=== PATIENT | male | born 1950 | race Caucasian/White ===

== ENCOUNTER 2021-05-11 23:00 | Emergency (ER) | payer MEDICARE, SELFPAY ==
--- NOTE | ~2021-05-11 | CT_ITS ---
EXAMINATION: CT ABDOMEN AND PELVIS WITH CONTRAST CLINICAL INFORMATION: Lower abdominal pain and tenderness. Evaluate for appendicitis or diverticulitis. COMPARISON: None TECHNIQUE: Multidetector volumetric images were obtained from the superior aspect of the liver through the pubic symphysis following administration 85 mL of Omnipaque 350 intravenous contrast. Sagittal and coronal reformatted images were obtained on the technologist's workstation. Oral contrast: No This CT examination was performed using dose optimization techniques as appropriate, variously including the following: *Automated exposure control *Adjustment of mA and/or kV according to patient size (this includes techniques or standardized protocols for targeted exams where dose is matched to indication/reason for exam; i.e. extremities or head) *Use of iterative reconstruction technique DLP: 735 mGy-cm FINDINGS: LUNG BASES: The visualized lung bases are unremarkable. LIVER, GALLBLADDER, AND BILIARY TREE: The liver is normal in size, shape, and attenuation. No focal hepatic lesion or biliary ductal dilatation is present. Gallbladder unremarkable. PANCREAS: Unremarkable. SPLEEN: Unremarkable. ADRENAL GLANDS: Unremarkable. KIDNEYS AND URETERS: The kidneys are normal in size, shape, and attenuation. There is a 4 mm nonobstructing calculus in the midpole of the LEFT kidney and a punctate calculus in the lower pole right kidney. Bilateral simple renal cysts require no further follow-up. No hydronephrosis or perinephric abnormality. BLADDER: Unremarkable. GASTROINTESTINAL TRACT: Left colonic diverticulosis most concentrated within the sigmoid colon. There is segmental edematous wall thickening of the sigmoid colon, associated pericolic fat stranding centered around a a few inflamed diverticula within the mid sigmoid colon compatible with diverticulitis. Trace free fluid within right lower quadrant and left pelvis is reactive. No evidence of abscess formation. No intraperitoneal free air to suggest asad perforation. No evidence of obstruction. The appendix is normal. ABDOMINAL WALL: No significant hernia is appreciated. LYMPH NODES: Normal. VASCULAR: Aorta is atherosclerotic but normal caliber. Patent venous structures. PELVIC VISCERA: Unremarkable. OSSEOUS STRUCTURES: No acute or suspicious osseous abnormalities. Degenerative changes present throughout the imaged thoracic and lumbar spine. CT/CT abdomen pelvis w con IMPRESSION: Acute uncomplicated sigmoid diverticulitis. Appendix is normal. Bilateral nonobstructive intrarenal calculi as described.
[2021-05-11 23:05] VITALS: BP 126/78; PULSE 105; RESP 18; TEMP 37.1; O2SAT 97; BMI 35.8
[2021-05-11 23:21] VITALS: BP 126/78; BP 130/90; PULSE 108; PULSE 86; RESP 17; O2SAT 96; O2SAT 97
--- NOTE | 2021-05-11 23:25 | PC.NURSE ---
Red socks, Red wrist band applied to pt. Red star posted outside of pt's room. Stretcher low locked, rails raised, call paz and personal belongings within reach.
--- NOTE | 2021-05-11 23:42 | ECG_ITS ---
Test Reason : ABD PAIN Blood Pressure : / mmHG Vent. Rate : 106 BPM Atrial Rate : 106 BPM P-R Int : 200 ms QRS Dur : 140 ms QT Int : 354 ms P-R-T Axes : 000 -45 109 degrees QTc Int : 470 ms Sinus tachycardia Left axis deviation Left bundle branch block Abnormal ECG No previous ECGs available Referred By: Gurwinder Pineda Electronically Signed By:LUPE CARDENAS
--- NOTE | 2021-05-11 23:44 | ED.ABDPAIN ---
HPI - Abdominal Pain General Chief Complaint: Abdominal Pain Stated Complaint: LOWER ABDOMINAL PAIN Time Seen by Provider: 05/11/21 23:27 Source: patient Mode of arrival: EMS Limitations: no limitations History of Present Illness HPI narrative: 70-year-old male who presents emergency department for evaluation of abdominal pain. Patient states he has been having abdominal pain on off for approximately 3 weeks. States the pain is constant but waxes and wanes in intensity. The pain is worse in the morning and gets better in the afternoon. He states that over the past 2 days the pain has been constant, sharp and 9/10 at its worst. The pain is located in his lower abdomen, he states that it is more prominent in the right lower quadrant of his abdomen. He states that he had nausea but no vomiting. States he has had intermittent constipation. The patient does have a history of bladder cancer he states that he has urinary frequency and dysuria chronically because of his bladder cancer. He states that he was evaluated 2 months for bladder cancer any was told that it had resolved. The patient states that his blood sugar was 300 but he does not have diabetes. Related Data Previous Rx's Medication Instructions Recorded levofloxacin 750 mg tablet 750 mg PO DAILY 10 Days #10 tab 05/12/21 metronidazole 500 mg tablet 500 mg PO BID 10 Days #20 tab 05/12/21 (Flagyl) morphine 15 mg immediate release 15 mg PO Q4-6H PRN #10 tab 05/12/21 tablet ondansetron 4 mg disintegrating 4 mg PO Q6-8H PRN #14 tab 05/12/21 tablet Allergies Allergy/AdvReac Type Severity Reaction Status Date / Time Penicillins [PCN] Allergy Rash Verified 05/11/21 23:10 Seasonal Allergies Allergy Unknown Verified 05/11/21 23:10 Review of Systems Review of Systems Yes all other systems are reviewed and are negative Physical Exam Vital Signs: Vital Signs: Last Vital Signs Temp 99.2 F 05/12/21 00:35 Pulse 108 H 05/12/21 00:35 Resp 15 05/12/21 00:35 BP 137/83 05/12/21 00:35 Pulse Ox 97 05/12/21 00:35 Body Mass Index 35.8 Const: General: cooperative, no acute distress, alert and awake Orientation/consciousness: oriented to person and oriented to place Limitations: no limitations HENMT: Head: Yes normal to inspection, Yes normocephalic and Yes atraumatic Ears: external ears normal General nose exam: Normal external nose present Face and sinus: Yes normal facial exam Mouth: Normal oral and palatal mucosa present Eyes: General: appearance normal, both eyes and all related structures Periorbital: periorbital findings normal Eyelids: Yes eyelids normal Conjunctivae: conjunctivae normal Sclerae: sclerae normal Corneas: corneas normal Pupils: Equal, round and reactive pupils present Direct Ophthalmoscopy: normal light reflex Neck: Neck: Yes normal visual inspection and Yes supple Lymphatic: no lymphadenopathy noted Chest: Chest palpation & inspection: normal inspection of the chest and normal palpation of entire chest wall Resp: Effort & Inspection: normal respiratory effort, no audible wheezes and no respiratory distress Auscultation: clear to auscultation bilaterally, no crackles, no rales, no rhonchi and no wheezes Cardio: Rate: regular rate Rhythm: regular rhythm Heart sounds: S1 normal heart sound present, S2 normal heart sound present and no murmurs GI: Inspection: Yes distended Palpation (GI): Soft to palpation, Tenderness to palpation present (GI) in the LLQ ([id number]), in the RLQ (Moderate) and suprapubicly (Moderate), no guarding and No hepatosplenomegaly present Auscultation: normal bowel sounds : General: Yes no CVA tenderness Back/Spine/Pelvis: Back: no CVA tenderness Skin: General skin exam: no rashes or lesions noted Lesions: no lesions Rashes: no rashes Wounds: no wounds Neuro: General: oriented to person and oriented to place Cranial nerves: Yes CN's II-XII intact bilaterally and Yes Equal, round and reactive pupils present Cognition (Neuro): normal cognition Motor exam (neuro): 5/5 motor strength present throughout Extrem: General: Yes normal to inspection, Yes full ROM, Yes no pedal edema and Yes no calf tenderness Psych: Appearance: grossly normal Mental Status: mental status grossly normal Speech and movement: Clear speech present Affect: normal affect Thought process: Normal thought process present Course Course Course Narrative: 70-year-old male who presents emergency department for evaluation of abdominal pain x3 weeks, worse the past 2 days, nausea without vomiting. The patient's physical examination revealed that he was tachycardic with a pulse of 105 otherwise his vital signs were normal. Patient's abdominal exam did lower abdominal tenderness greater in the right quadrant. I ordered a laboratory evaluation to include CBC, CMP, lipase, lactate, COVID-19 test, urinalysis. CT of the abdomen pelvis with IV contrast will be obtained as well. Patient's abdominal pain was treated with morphine 4 mg IV , his nausea was treated with Zofran 4 mg IV. Was also ordered to get normal saline IV x1 L. 0233: Laboratory [place] [address] bicarb of 21 the, elevated glucose of 301, elevated total bilirubin 2.5. Urinalysis was positive for glucose otherwise unremarkable. Lactic acid was 1.8. CT scan of the abdomen pelvis with IV contrast is consistent with acute, uncomplicated sigmoid diverticulitis, normal appendix. The patient is feeling better after receiving the above medications. The patient the has improvement of his abdominal tenderness and would like to be treated as an outpatient. Patient was given Levaquin 750 mg orally and Flagyl 500 mg orally. Patient was given a prescription for Levaquin 750 mg once a day for 10 days and Flagyl 500 mg 3 times a day for 10 days. He is advised to take Tylenol for pain and given a prescription for morphine for pain not relieved by Tylenol. It is also given a prescription for Zofran ODT for nausea and vomiting. The patient was given verbal and printed instructions prior to discharge. The patient was advised to follow-up with his PCP in 2 days and to return to the emergency department if his symptoms get worse or if he develops any new symptoms that are concerning to him. MDM - Abdominal Pain Lab Data Result diagrams: 05/12/21 00:13 05/12/21 00:13 Labs: Lab Results 05/12/21 05/12/21 05/12/21 Range/Units 00:13 00:13 00:13 WBC 16.9 H (4.8-10.8) X10*3/uL RBC 5.46 (4.60-5.80) X10*6/uL Hgb 17.1 (14.0-18.0) g/dl Hct 49.4 (42-52) % MCV 90.5 (80-98) fL MCH 31.3 (27.0-33.0) pg MCHC 34.6 (31.0-36.0) g/dl RDW 12.7 (11.0-16.0) % Plt Count 238 (160-400) X10*3/uL MPV 10.2 (9.4-12.4) fL Immature Gran % (Auto) 0.5 H (0.0-0.4) % Neut % (Auto) 87.2 H (45-73) % Lymph % (Auto) 7.4 L (20-40) % [place] % (Auto) 4.6 (2-11) % Eos % (Auto) 0.1 (0-4) % Baso % (Auto) 0.2 (0-2) % Lymph # (Auto) 1.3 (1.2-4.9) X10*3/uL [place] # (Auto) 0.8 (0.1-1.2) X10*3/uL Eos # (Auto) 0.0 (0.0-0.4) X10*3/uL Baso # (Auto) 0.0 (0.0-0.2) X10*3/uL Abs Immat Gran (auto) 0.08 H (0.00-0.03) X10*3/uL Absolute Neuts (auto) 14.8 H (2.0-8.3) X10*3/uL Absolute Nucleated RBC 0.000 (0.0-0.012) X10*3/uL Nucleated RBC % (auto) 0.0 (0.0-0.2) /100WBC PT 11.4 (9.9-13.0) SEC INR 1.0 (0.9-1.1) APTT 28.2 (24.1-38.0) SEC Sodium 138 (135-145) mmol/L Potassium 4.4 (3.3-5.1) mmol/L Chloride 104 (96-108) mmol/L Carbon Dioxide 21 L (22-29) mmol/L Anion Gap 17 (12-20) BUN 14 (9-16) mg/dL Creatinine 1.04 (0.5-1.4) mg/dL Estim Creat Clear Calc 72.3 Estimated GFR > 60 Random Glucose 301 H (60-115) mg/dL Lactic Acid (0.5-2.0) mmol/L Calcium 10.8 H (8.4-10.2) mg/dL Total Bilirubin 2.5 H (0.0-1.0) mg/dL AST 27 (5-37) U/L ALT 30 (0-40) U/L Alkaline Phosphatase 98 (39-117) U/L Troponin I High Sens (<3.5-35.0) ng/L Total Protein 7.2 (6.5-8.0) g/dL Albumin 4.0 (3.5-5.0) g/dL Lipase 11 (8-78) U/L Urine Color Urine Appearance Urine pH (5.0-8.0) Ur Specific [place] (1.005-1.025) Urine Protein (NEG-TRACE) MG/DL Urine Glucose (UA) (NEG) MG/DL Urine Ketones (NEG) MG/DL Urine Blood (NEG) Urine Nitrite (NEG) Ur Leukocyte Esterase (NEG) Ethyl Alcohol mg/dL COVID-19 (DARLENE) (Negative) COVID-19 Clin Com 05/12/21 05/12/21 05/12/21 Range/Units 00:13 00:13 00:13 WBC (4.8-10.8) X10*3/uL RBC (4.60-5.80) X10*6/uL Hgb (14.0-18.0) g/dl Hct (42-52) % MCV (80-98) fL MCH (27.0-33.0) pg MCHC (31.0-36.0) g/dl RDW (11.0-16.0) % Plt Count (160-400) X10*3/uL MPV (9.4-12.4) fL Immature Gran % (Auto) (0.0-0.4) % Neut % (Auto) (45-73) % Lymph % (Auto) (20-40) % [place] % (Auto) (2-11) % Eos % (Auto) (0-4) % Baso % (Auto) (0-2) % Lymph # (Auto) (1.2-4.9) X10*3/uL [place] # (Auto) (0.1-1.2) X10*3/uL Eos # (Auto) (0.0-0.4) X10*3/uL Baso # (Auto) (0.0-0.2) X10*3/uL Abs Immat Gran (auto) (0.00-0.03) X10*3/uL Absolute Neuts (auto) (2.0-8.3) X10*3/uL Absolute Nucleated RBC (0.0-0.012) X10*3/uL Nucleated RBC % (auto) (0.0-0.2) /100WBC PT (9.9-13.0) SEC INR (0.9-1.1) APTT (24.1-38.0) SEC Sodium (135-145) mmol/L Potassium (3.3-5.1) mmol/L Chloride (96-108) mmol/L Carbon Dioxide (22-29) mmol/L Anion Gap (12-20) BUN (9-16) mg/dL Creatinine (0.5-1.4) mg/dL Estim Creat Clear Calc Estimated GFR Random Glucose (60-115) mg/dL Lactic Acid 1.8 (0.5-2.0) mmol/L Calcium (8.4-10.2) mg/dL Total Bilirubin (0.0-1.0) mg/dL AST (5-37) U/L ALT (0-40) U/L Alkaline Phosphatase (39-117) U/L Troponin I High Sens 6.8 (<3.5-35.0) ng/L Total Protein (6.5-8.0) g/dL Albumin (3.5-5.0) g/dL Lipase (8-78) U/L Urine Color Urine Appearance Urine pH (5.0-8.0) Ur Specific [place] (1.005-1.025) Urine Protein (NEG-TRACE) MG/DL Urine Glucose (UA) (NEG) MG/DL Urine Ketones (NEG) MG/DL Urine Blood (NEG) Urine Nitrite (NEG) Ur Leukocyte Esterase (NEG) Ethyl Alcohol mg/dL COVID-19 (DARLENE) Negative (Negative) COVID-19 Clin Com See Note 05/12/21 05/12/21 Range/Units 00:13 00:33 WBC (4.8-10.8) X10*3/uL RBC (4.60-5.80) X10*6/uL Hgb (14.0-18.0) g/dl Hct (42-52) % MCV (80-98) fL MCH (27.0-33.0) pg MCHC (31.0-36.0) g/dl RDW (11.0-16.0) % Plt Count (160-400) X10*3/uL MPV (9.4-12.4) fL Immature Gran % (Auto) (0.0-0.4) % Neut % (Auto) (45-73) % Lymph % (Auto) (20-40) % [place] % (Auto) (2-11) % Eos % (Auto) (0-4) % Baso % (Auto) (0-2) % Lymph # (Auto) (1.2-4.9) X10*3/uL [place] # (Auto) (0.1-1.2) X10*3/uL Eos # (Auto) (0.0-0.4) X10*3/uL Baso # (Auto) (0.0-0.2) X10*3/uL Abs Immat Gran (auto) (0.00-0.03) X10*3/uL Absolute Neuts (auto) (2.0-8.3) X10*3/uL Absolute Nucleated RBC (0.0-0.012) X10*3/uL Nucleated RBC % (auto) (0.0-0.2) /100WBC PT (9.9-13.0) SEC INR (0.9-1.1) APTT (24.1-38.0) SEC Sodium (135-145) mmol/L Potassium (3.3-5.1) mmol/L Chloride (96-108) mmol/L Carbon Dioxide (22-29) mmol/L Anion Gap (12-20) BUN (9-16) mg/dL Creatinine (0.5-1.4) mg/dL Estim Creat Clear Calc Estimated GFR Random Glucose (60-115) mg/dL Lactic Acid (0.5-2.0) mmol/L Calcium (8.4-10.2) mg/dL Total Bilirubin (0.0-1.0) mg/dL AST (5-37) U/L ALT (0-40) U/L Alkaline Phosphatase (39-117) U/L Troponin I High Sens (<3.5-35.0) ng/L Total Protein (6.5-8.0) g/dL Albumin (3.5-5.0) g/dL Lipase (8-78) U/L Urine Color DARK YELLOW Urine Appearance HAZY Urine pH 6.0 (5.0-8.0) Ur Specific [place] 1.025 (1.005-1.025) Urine Protein TRACE (NEG-TRACE) MG/DL Urine Glucose (UA) 500 H (NEG) MG/DL Urine Ketones >=80 (NEG) MG/DL Urine Blood NEG (NEG) Urine Nitrite NEG (NEG) Ur Leukocyte Esterase NEG (NEG) Ethyl Alcohol < 10 mg/dL COVID-19 (DARLENE) (Negative) COVID-19 Clin Com Imaging Data CT abdomen and pelvis with IV contrast: Radiologist's impression: [address] [place] [address] CT Scan Report Signed Patient: Willy Tyler III MR#: [id number] : 1950 Acct:[id number] Age/Sex: 70 / M ADM Date: 05/12/21 Loc: HO.ED Attending Dr: Ordering Physician: Gurwinder Pineda MD Date of Service: 05/12/21 Procedure(s): CT abdomen pelvis w con Accession Number(s): [id number] cc: Gurwinder Pineda MD~ EXAMINATION: CT ABDOMEN AND PELVIS WITH CONTRAST? CLINICAL INFORMATION: Lower abdominal pain and tenderness. Evaluate for appendicitis or diverticulitis.? COMPARISON: None? TECHNIQUE: Multidetector volumetric images were obtained from the superior aspect of the liver through the pubic symphysis following administration 85 mL of Omnipaque 350 intravenous contrast. Sagittal and coronal reformatted images were obtained on the technologist's workstation.? Oral contrast: No This CT examination was performed using dose optimization techniques as appropriate, variously including the following: *Automated exposure control *Adjustment of mA and/or kV according to patient size (this includes techniques or standardized protocols for targeted exams where dose is matched to indication/reason for exam; i.e. extremities or head) *Use of iterative reconstruction technique DLP: 735 mGy-cm FINDINGS: LUNG BASES: The visualized lung bases are unremarkable.? LIVER, GALLBLADDER, AND BILIARY TREE: The liver is normal in size, shape, and attenuation. No focal hepatic lesion or biliary ductal dilatation is present. Gallbladder unremarkable.? PANCREAS: Unremarkable.? SPLEEN: Unremarkable.? ADRENAL GLANDS: Unremarkable.? KIDNEYS AND URETERS: The kidneys are normal in size, shape, and attenuation. There is a 4 mm nonobstructing calculus in the midpole of the LEFT kidney and a punctate calculus in the lower pole right kidney. Bilateral simple renal cysts require no further follow-up. No hydronephrosis or perinephric abnormality. BLADDER: Unremarkable.? GASTROINTESTINAL TRACT: Left colonic diverticulosis most concentrated within the sigmoid colon. There is segmental edematous wall thickening of the sigmoid colon, associated pericolic fat stranding centered around a a few inflamed diverticula within the mid sigmoid colon compatible with diverticulitis. Trace free fluid within right lower quadrant and left pelvis is reactive. No evidence of abscess formation. No intraperitoneal free air to suggest asad perforation. No evidence of obstruction. The appendix is normal. ABDOMINAL WALL: No significant hernia is appreciated.? LYMPH NODES: Normal. VASCULAR: Aorta is atherosclerotic but normal caliber. Patent venous structures. PELVIC VISCERA: Unremarkable.? OSSEOUS STRUCTURES: No acute or suspicious osseous abnormalities. Degenerative changes present throughout the imaged thoracic and lumbar spine.? CT/CT abdomen pelvis w con IMPRESSION: Acute uncomplicated sigmoid diverticulitis. Appendix is normal. Bilateral nonobstructive intrarenal calculi as described.? Dictated By: ROSE BAILEY MD Signed By: <Electronically signed by ROSE BAILEY MD in OV> 05/12/21 0141 DD/ 0000 TD/TT:? Auto Service Instructor: DB ECG Data Attestation: I personally reviewed and interpreted this ECG as follows: Interpretation: 0021: S sinus tachycardia with a rate of 106, first-degree AV block with a NV interval of 200 milliseconds, prolonged QRS duration of 140 milliseconds, normal QTC interval. He the patient has a left blood. There Q, there is no ST to elevate there is no old EKG for comparison. Discharge Plan Discharge Clinical Impression: Acute diverticulitis Patient Disposition: Home, Self-Care Instructions: Diverticulitis (ED) Additional Instructions: Your CT scan of your abdomen pelvis is consistent with uncomplicated sigmoid diverticulitis. Take Levaquin 750 mg pills, 1 pill once a day for 10 days. With given a dose of Levaquin here in the emergency department, take your next dose on 05/12/2021 9:00 p.m.. Then take the Levaquin at 9:00 p.m. daily for a total of 10 days. Take Flagyl (metronidazole) 500 mg pills, 1 pill every 6 hours (3 times a day) . Your given a dose of this medication here in the emergency department. Take your next dose tomorrow morning. Take Tylenol (acetaminophen) 500 mg pills, 2 pills every 4 to 6 hours as needed for pain. For pain not relieved by Tylenol, take morphine 15 mg pills, 1 pill every 4-6 hours as needed for pain. This is a narcotic medication and can be addicting. If you are concerned about addiction, do not get the prescription filled or you can ask the pharmacist for less pills than prescribed. This medication will make you sleepy, do not drive or work while taking this medication. Take Zofran (ondansetron) ODT 4 mg, 1 pill dissolved in your mouth every 6-8 hours as needed for nausea and vomiting. Follow-up with your doctor in 2 days. Please return to the emergency department if your symptoms get worse or if you develop any symptoms that are concerning to you. Prescriptions: New metronidazole [Flagyl] 500 mg tablet 500 mg PO BID 10 Days Qty: 20 RF: 0 levofloxacin 750 mg tablet 750 mg PO DAILY 10 Days Qty: 10 RF: 0 morphine 15 mg tablet 15 mg PO Q4-6H PRN (Reason: pain) Qty: 10 RF: 0 ondansetron 4 mg tablet,disintegrating 4 mg PO Q6-8H PRN (Reason: nausea and vomiting) Qty: 14 RF: 0 PMFSH Past Medical History [facility] Narrative: Past medical history: Brain tumor times years, cancer, diverticulosis, hyperglycemia. Past surgical history: Tonsillectomy, bladder surgery for bladder cancer last procedure was 2 months prior, right knee surgery. Social history: The patient states that he was living in [facility] and moved to [place] 3 months prior. Social history: The patient denies tobacco use, he drinks 1 beer per day, he did drink alcohol this evening. He states that he smokes marijuana but has not smoked in 3 months. Medical History Bladder cancer Brain tumor Diverticulosis Hyperglycemia Surgical History History of bladder surgery Hx of tonsillectomy Social History Social History Alcohol intake: current Alcohol intake frequency: 0-2 drinks per day Alcohol type: beer Patient Tobacco Use Status: Never used Tobacco Use of substances other than those prescribed or required for medical reasons: Yes Substance Use Type: Marijuana Advance Directives: No Advance Directives Information Provided: No
[2021-05-12 00:24] LABS: MANUAL DIFF FLAG NO
[2021-05-12 00:25] LABS: Basophils Percent Auto 0.2 % (0-2); Eosinophils Percent Auto 0.1 % (0-4); Hematocrit 49.4 % (42-52); Hemoglobin 17.1 g/dl (14.0-18.0); Imm Gran Abs Auto 0.08 X10*3/uL (0.00-0.03); Imm Gran Pct Auto 0.5 % (0.0-0.4); Lymphocytes Absolute Auto 1.3 X10*3/uL (1.2-4.9); Lymphocytes Percent Auto 7.4 % (20-40); Mean Corpuscular HGB Conc 34.6 g/dl (31.0-36.0); Mean Corpuscular Hemoglobin 31.3 pg (27.0-33.0); Mean Corpuscular Volume 90.5 fL (80-98); Mean Platelet Volume 10.2 fL (9.4-12.4); Monocytes Absolute Auto 0.8 X10*3/uL (0.1-1.2); Monocytes Percent Auto 4.6 % (2-11); Neutrophils Absolute Auto 14.8 X10*3/uL (2.0-8.3); Neutrophils Percent Auto 87.2 % (45-73); Platelet Count 238 X10*3/uL (160-400); Red Blood Count 5.46 X10*6/uL (4.60-5.80); Red Cell Distribution Width 12.7 % (11.0-16.0); White Blood Count 16.9 X10*3/uL (4.8-10.8)
[2021-05-12 00:35] VITALS: BP 137/83; PULSE 108; RESP 15; TEMP 37.3; O2SAT 97
[2021-05-12 00:37] LABS: COVID-19 Test Negative (Negative); IDNOW Serial# 08D9AD1C; Prothrombin Time 11.4 SEC (9.9-13.0)
[2021-05-12] MEDS: Morphine Sulfate 4 MG/ML CARTRIDGE IVPUSH (00:38)
[2021-05-12] MEDS: 0.9 % Sodium Chloride 1,000 ML 999 ML IV (00:38)
[2021-05-12 00:40] LABS: Partial Thromboplastin Time 28.2 SEC (24.1-38.0)
[2021-05-12 00:41] LABS: Lactic Acid 1.8 mmol/L (0.5-2.0)
[2021-05-12 00:43] LABS: Ethanol < 10 mg/dL
[2021-05-12 00:49] LABS: Alanine Aminotransferase 30 U/L (0-40); Alkaline Phosphatase 98 U/L (39-117); Anion Gap 17 (12-20); Aspartate Amino Transferase 27 U/L (5-37); Bilirubin Total 2.5 mg/dL (0.0-1.0); Blood Urea Nitrogen 14 mg/dL (9-16); Calcium 10.8 mg/dL (8.4-10.2); Carbon Dioxide 21 mmol/L (22-29); Chloride 104 mmol/L (96-108); Creatinine Clr Calc Pharmacy 72.3; Estimated Glomerular Filt Rate > 60; Glucose Random 301 mg/dL (60-115); Lipase 11 U/L (8-78); Potassium 4.4 mmol/L (3.3-5.1); Sodium 138 mmol/L (135-145); Total Protein 7.2 g/dL (6.5-8.0); Troponin-I High Sensitivity 6.8 ng/L (<3.5-35.0)
[2021-05-12 00:53] LABS: Glucose Urine UA 500 MG/DL (NEG); Leukocyte Esterase Urine NEG (NEG); Nitrite Urine NEG (NEG); Specific Gravity - Urine 1.025 (1.005-1.025); Urine Blood NEG (NEG); Urine Ketones >=80 MG/DL (NEG); Urine Protein TRACE MG/DL (NEG-TRACE)
[2021-05-12 00:54] LABS: Appearance Urine HAZY; Color Urine DARK YELLOW
[2021-05-12] MEDS: iohexoL 350 MG/ML 100 ML INFUS..BTL 85 ML IV (01:18)
--- NOTE | 2021-05-12 01:36 | PC.NURSE ---
pt returned from CT, reconnected by this RN to classroom monitor
--- NOTE | 2021-05-12 02:30 | PC.NURSE ---
while repositioning self in bed, pt accidentally removed IV and fluids spilled onto floor. Dr Pineda aware. Pt updated on CT results and is requesting DC home with PO abx. Dr Pineda and pt agreeable to plan for PO meds and DC.
[2021-05-12] MEDS: levoFLOXacin 750 MG TABLET PO (02:45)
[2021-05-12] MEDS: metroNIDAZOLE 500 MG TABLET PO (02:45)
== END 2021-05-12 02:56 | disposition home or self-care (01) ==
PROVIDERS: Emergency Provider Emergency Medicine Emergency Medical Services
DX: K57.32 Diverticulitis of large intestine without perforation or abscess without bleeding (principal); R10.9 Unspecified abdominal pain; F12.90 Cannabis use, unspecified, uncomplicated; Z20.822 Contact with and (suspected) exposure to COVID-19; Z79.899 Other long term (current) drug therapy
CPT/HCPCS: 36415; 74177; 80053; 81003; 82077; 83605; 83690; 84484; 85025; 85610; 85730; 87040; 87635; 93005; 96365; 96375; 99285; J2270; J2405; Q9967

== ENCOUNTER 2021-05-15 17:02 | Emergency (ER) | payer MEDICARE, SELFPAY ==
--- NOTE | ~2021-05-15 | US_ITS ---
EXAMINATION: US SCROTUM CLINICAL INFORMATION: Right testicular pain. COMPARISON: None TECHNIQUE: A sonogram of the scrotum was performed assessing laurent-scale appearance and color Doppler flow. Spectral Doppler analysis of the arterial and venous flow were performed in the testes bilaterally. FINDINGS: RIGHT: Right testicle measures 3.3 x 2.6 x 2.3 cm, volume 1.0 mL. There is a hypoechoic mass lesion in the right testicle measuring 0.6 cm. This is suspicious for neoplasm. Spectral Doppler analysis of the arterial and venous flow is normal in the right testis. Right epididymal head is normal in size. There is a 3 mm cyst in the head of the right epididymis. There is a small volume right-sided hydrocele. There is no right-sided varicocele. Right epididymal Doppler flow is normal. LEFT: Left testicle measures 2.3 x 1.5 x 2.1 cm, volume 4 mL. No focal testicular parenchymal lesions are visualized. Spectral Doppler analysis of the arterial and venous flow is normal in the left testis. Left epididymis is thickened and mildly hyperemic consistent with epididymitis. There is trace left-sided hydrocele. There are prominent varices at the inferior pole the left testicle, varicocele. US/US scrotum doppler IMPRESSION: 1. No evidence of testicular torsion. 2. 0.6 cm hypoechoic mass in right testicle suspicious of neoplasm. 3. Small volume right-sided hydrocele. 4. Left-sided epididymitis. 5. Trace left-sided hydrocele. 6. Left-sided varicocele.
--- NOTE | ~2021-05-15 | US_ITS ---
EXAMINATION: US SCROTUM CLINICAL INFORMATION: Right testicular pain. COMPARISON: None TECHNIQUE: A sonogram of the scrotum was performed assessing laurent-scale appearance and color Doppler flow. Spectral Doppler analysis of the arterial and venous flow were performed in the testes bilaterally. FINDINGS: RIGHT: Right testicle measures 3.3 x 2.6 x 2.3 cm, volume 1.0 mL. There is a hypoechoic mass lesion in the right testicle measuring 0.6 cm. This is suspicious for neoplasm. Spectral Doppler analysis of the arterial and venous flow is normal in the right testis. Right epididymal head is normal in size. There is a 3 mm cyst in the head of the right epididymis. There is a small volume right-sided hydrocele. There is no right-sided varicocele. Right epididymal Doppler flow is normal. LEFT: Left testicle measures 2.3 x 1.5 x 2.1 cm, volume 4 mL. No focal testicular parenchymal lesions are visualized. Spectral Doppler analysis of the arterial and venous flow is normal in the left testis. Left epididymis is thickened and mildly hyperemic consistent with epididymitis. There is trace left-sided hydrocele. There are prominent varices at the inferior pole the left testicle, varicocele. US/US scrotum IMPRESSION: 1. No evidence of testicular torsion. 2. 0.6 cm hypoechoic mass in right testicle suspicious of neoplasm. 3. Small volume right-sided hydrocele. 4. Left-sided epididymitis. 5. Trace left-sided hydrocele. 6. Left-sided varicocele.
[2021-05-15 17:06] VITALS: BP 124/78; PULSE 97; RESP 16; TEMP 36.5; O2SAT 97; BMI 33.0
[2021-05-15 18:01] LABS: MANUAL DIFF FLAG NO
[2021-05-15 18:02] LABS: Basophils Percent Auto 0.2 % (0-2); Eosinophils Absolute Auto 0.1 X10*3/uL (0.0-0.4); Eosinophils Percent Auto 0.4 % (0-4); Hematocrit 45.8 % (42-52); Hemoglobin 15.8 g/dl (14.0-18.0); Imm Gran Abs Auto 0.13 X10*3/uL (0.00-0.03); Lymphocytes Absolute Auto 1.7 X10*3/uL (1.2-4.9); Lymphocytes Percent Auto 13.7 % (20-40); Mean Corpuscular HGB Conc 34.5 g/dl (31.0-36.0); Mean Corpuscular Hemoglobin 31.3 pg (27.0-33.0); Mean Corpuscular Volume 90.9 fL (80-98); Mean Platelet Volume 9.9 fL (9.4-12.4); Monocytes Absolute Auto 0.8 X10*3/uL (0.1-1.2); Monocytes Percent Auto 6.1 % (2-11); Neutrophils Absolute Auto 9.8 X10*3/uL (2.0-8.3); Neutrophils Percent Auto 78.6 % (45-73); Platelet Count 283 X10*3/uL (160-400); Red Blood Count 5.04 X10*6/uL (4.60-5.80); Red Cell Distribution Width 12.7 % (11.0-16.0); White Blood Count 12.4 X10*3/uL (4.8-10.8)
[2021-05-15 18:28] LABS: Alanine Aminotransferase 14 U/L (0-40); Albumin Level 3.7 g/dL (3.5-5.0); Alkaline Phosphatase 88 U/L (39-117); Anion Gap 14 (12-20); Aspartate Amino Transferase 14 U/L (5-37); Bilirubin Direct 0.5 mg/dL (0.0-0.5); Bilirubin Total 1.3 mg/dL (0.0-1.0); Blood Urea Nitrogen 17 mg/dL (9-16); Calcium 11.1 mg/dL (8.4-10.2); Carbon Dioxide 25 mmol/L (22-29); Chloride 101 mmol/L (96-108); Cholesterol 139 mg/dL; Creatinine Clr Calc Pharmacy 76.9; Estimated Glomerular Filt Rate > 60; Glucose Fasting 223 mg/dL (60-99); HDL Cholesterol 27 mg/dL; LDL Cholesterol Calculated 87 mg/dl; Potassium 3.6 mmol/L (3.3-5.1); Sodium 136 mmol/L (135-145); Total Protein 6.4 g/dL (6.5-8.0); Triglycerides 125 mg/dL
[2021-05-15 19:05] VITALS: BP 152/81; PULSE 95; RESP 18; TEMP 36.8; O2SAT 97
--- NOTE | 2021-05-15 19:06 | PC.NURSE ---
patient a&ox3, vss, pt states he is her just for a prescription refill and doesnt need anything else, will continue to monitor.
[2021-05-15 19:53] LABS: Glucose Urine UA 100 MG/DL (NEG); Leukocyte Esterase Urine TRACE (NEG); Nitrite Urine NEG (NEG); Specific Gravity - Urine >= 1.030 (1.005-1.025); UACC Culture Trigger YES; Urine Blood TRACE (NEG); Urine Ketones 40 MG/DL (NEG); Urine Protein 1+ MG/DL (NEG-TRACE)
[2021-05-15 19:54] LABS: Appearance Urine CLEAR; Color Urine YELLOW
[2021-05-15 20:12] VITALS: BP 124/58; PULSE 90; RESP 17; TEMP 36.5; O2SAT 95
[2021-05-15 20:13] LABS: Bacteria Urine TRACE /LPF; Mucus Urine 1+ /LPF; Squamous Epithelial Cell Urine TRACE /LPF; UACC CULT YES
[2021-05-15 20:14] LABS: Amorphous Sediment Urine 1+ /LPF; Hyaline Casts Urine 0-2 /LPF
--- NOTE | 2021-05-15 20:47 | PC.NURSE ---
patient was asking when he would see the provider again and asking about the results of his ultrasound. pt was told that the provider would be in as soon as he obtains results of the US
--- NOTE | 2021-05-15 21:03 | ED.GENADULT ---
HPI - General Adult General Chief complaint: Abdominal Pain Stated complaint: Right Abdominal Pain Time Seen by Provider: 05/15/21 19:14 Source: patient Mode of arrival: ambulatory Limitations: no limitations History of Present Illness HPI narrative: Patient presents to the ED for medication refill for morphine. Patient was diagnosed with diverticulitis on the 12 of May and states pain has not worsened but once medication refill for his morphine that finished. patient would like to be evaluated for right testicular pain for the past 4 days. Patient states no dysuria, hematuria, penile discharge, or any sexual activity. Related Data Previous Rx's Medication Instructions Recorded levofloxacin 750 mg tablet 750 mg PO DAILY 10 Days #10 tab 05/12/21 metronidazole 500 mg tablet 500 mg PO BID 10 Days #20 tab 05/12/21 (Flagyl) morphine 15 mg immediate release 15 mg PO Q4-6H PRN #10 tab 05/12/21 tablet ondansetron 4 mg disintegrating 4 mg PO Q6-8H PRN #14 tab 05/12/21 tablet morphine 15 mg immediate release 15 mg PO Q4-6H PRN #10 tab 05/15/21 tablet Allergies Allergy/AdvReac Type Severity Reaction Status Date / Time Penicillins [PCN] Allergy Rash Verified 05/15/21 17:06 Seasonal Allergies Allergy Unknown Verified 05/15/21 17:06 Review of Systems Review of Systems: Yes all other systems are reviewed and are negative Constitutional: Constitutional: Reports as per HPI and Reports no additional constitutional complaints Eyes: Eyes: Reports as per HPI and Reports no additional eye complaints ENT: Reports system reviewed and no additional complaints, except as documented and Reports as per HPI Cardiovascular: Cardiovascular: Reports as per HPI and Reports no additional cardiovascular complaints Respiratory: Respiratory: Reports as per HPI Gastrointestinal: Gastrointestinal: Reports as per HPI and Reports no additional gastrointestinal complaints Genitourinary: Genitourinary: Reports no additional male genitourinary complaints and Reports as per HPI Comments: Right testicular pain Musculoskeletal: Musculoskeletal: Reports no additional musculoskeletal complaints and Reports as per HPI PMF Past Medical History Medical History Bladder cancer Brain tumor Diverticulosis Hyperglycemia Surgical History History of bladder surgery Hx of tonsillectomy Social History Social History Alcohol intake: current Alcohol intake frequency: 0-2 drinks per day Alcohol type: beer Patient Tobacco Use Status: Never used Tobacco Use of substances other than those prescribed or required for medical reasons: Yes Substance Use Type: Marijuana Advance Directives: No Advance Directives Information Provided: Yes Physical Exam Vital Signs: Vital Signs: Last Vital Signs Temp 98.3 F 05/15/21 21:23 Pulse 96 05/15/21 21:23 Resp 16 05/15/21 21:23 BP 121/61 05/15/21 21:23 Pulse Ox 95 05/15/21 21:23 Body Mass Index 33.0 Const: General: cooperative, healthy appearing, comfortable, no acute distress, well developed, alert, awake and Physically active Orientation/consciousness: patient oriented x3 HENMT: Head: Yes normal to inspection, Yes No palpable skull fracture present, Yes normocephalic and Yes atraumatic Eyes: General: appearance normal, both eyes and all related structures Neck: Neck: Yes normal visual inspection, Yes full ROM, Yes no lymphadenopathy, Yes no meningeal signs, Yes trachea midline, Yes supple and No tender Chest: Chest palpation & inspection: normal inspection of the chest and normal palpation of entire chest wall Resp: Effort & Inspection: normal respiratory effort and able to speak in complete sentences Auscultation: clear to auscultation bilaterally Cardio: Jugular venous distension: no JVD Heart sounds: S1 normal heart sound present and S2 normal heart sound present GI: Inspection: Yes normal to inspection and No abdominal wall ecchymosis Palpation (GI): Soft to palpation, not firm, nontender, no guarding and not rigid : General: No CVA tenderness and Yes no CVA tenderness Penis: normal penis Scrotum: scrotum normal Testes: testicular tenderness on the right Back/Spine/Pelvis: Back: no CVA tenderness, No CVA tenderness and No back tenderness Skin: General skin exam: no rashes or lesions noted and elasticity normal Neuro: General: patient oriented x3, gait normal, no meningeal signs and CN's II-XI intact bilaterally Cranial nerves: Yes CN's II-XII intact bilaterally Extrem: General: Yes normal to inspection and Yes full ROM Psych: Appearance: grossly normal, well kempt and not disheveled Course Course Course Narrative: Patient was rapid medically screen. Reevaluation(s) Reevaluation #1: Repeat labs came back normal at baseline. Negative for elevated white blood cell count. Patient does not have any abdominal tenderness on palpation. No need for repeat CT scan. Patient will be sent for ultrasound of testicles. Patient insists on referral from morphine. Time: 17:52 Reevaluation #2: Ultrasound testicle shows left epididymitis, right mass on testicle suspicious for neoplasm, and hydrocele. Dr. Parker was contacted and he states patient to follow-up outpatient for other right testicular mass suspicion of neoplasm. Patient agreeable with plan for follow-up. Time: 21:16 Medical Decision Making MDM Narrative Medical decision making narrative: Medication refill. Epididymitis. Testicular neoplasm. Lab Data Result diagrams: 05/15/21 17:52 05/15/21 17:52 Labs: Lab Results 05/15/21 05/15/21 05/15/21 Range/Units 17:52 17:52 19:45 WBC 12.4 H (4.8-10.8) X10*3/uL RBC 5.04 (4.60-5.80) X10*6/uL Hgb 15.8 (14.0-18.0) g/dl Hct 45.8 (42-52) % MCV 90.9 (80-98) fL MCH 31.3 (27.0-33.0) pg MCHC 34.5 (31.0-36.0) g/dl RDW 12.7 (11.0-16.0) % Plt Count 283 (160-400) X10*3/uL MPV 9.9 (9.4-12.4) fL Immature Gran % (Auto) 1.0 H (0.0-0.4) % Neut % (Auto) 78.6 H (45-73) % Lymph % (Auto) 13.7 L (20-40) % Robertson % (Auto) 6.1 (2-11) % Eos % (Auto) 0.4 (0-4) % Baso % (Auto) 0.2 (0-2) % Lymph # (Auto) 1.7 (1.2-4.9) X10*3/uL Robertson # (Auto) 0.8 (0.1-1.2) X10*3/uL Eos # (Auto) 0.1 (0.0-0.4) X10*3/uL Baso # (Auto) 0.0 (0.0-0.2) X10*3/uL Abs Immat Gran (auto) 0.13 H (0.00-0.03) X10*3/uL Absolute Neuts (auto) 9.8 H (2.0-8.3) X10*3/uL Absolute Nucleated RBC 0.000 (0.0-0.012) X10*3/uL Nucleated RBC % (auto) 0.0 (0.0-0.2) /100WBC Sodium 136 (135-145) mmol/L Potassium 3.6 (3.3-5.1) mmol/L Chloride 101 (96-108) mmol/L Carbon Dioxide 25 (22-29) mmol/L Anion Gap 14 (12-20) BUN 17 H (9-16) mg/dL Creatinine 0.94 (0.5-1.4) mg/dL Estim Creat Clear Calc 76.9 Estimated GFR > 60 Fasting Glucose 223 H (60-99) mg/dL Calcium 11.1 H (8.4-10.2) mg/dL Total Bilirubin 1.3 H (0.0-1.0) mg/dL Direct Bilirubin 0.5 (0.0-0.5) mg/dL AST 14 D (5-37) U/L ALT 14 (0-40) U/L Alkaline Phosphatase 88 (39-117) U/L Total Protein 6.4 L (6.5-8.0) g/dL Albumin 3.7 (3.5-5.0) g/dL Triglycerides 125 mg/dL Cholesterol 139 mg/dL LDL Cholesterol, Calc 87 mg/dl HDL Cholesterol 27 mg/dL Urine Color YELLOW Urine Appearance CLEAR Urine pH 6.0 (5.0-8.0) Ur Specific [place] >= 1.030 H (1.005-1.025) Urine Protein 1+ H (NEG-TRACE) MG/DL Urine Glucose (UA) 100 H (NEG) MG/DL Urine Ketones 40 (NEG) MG/DL Urine Blood TRACE (NEG) Urine Nitrite NEG (NEG) Ur Leukocyte Esterase TRACE H (NEG) Urine RBC 1-4 (0) /HPF Urine WBC 5-9 H (0-4) /HPF Ur Squamous Epith Cells TRACE /LPF Amorphous Sediment 1+ /LPF Urine Bacteria TRACE /LPF Hyaline Casts 0-2 /LPF Urine Mucus 1+ /LPF Discharge Plan Discharge Clinical Impression: Acute epididymitis, Mass of right testis, Hydrocele, Medication refill Patient Disposition: Home, Self-Care Instructions: Epididymitis (ED), Hydrocele (ED), Testicle Pain (ED), Medicine Refill (ED) Additional Instructions: Your ultrasound came back positive for left epididymitis, bilateral hydrocele, and suspicion of neoplasm of right testicle. You are already being treated for left epididymitis since she will prescribe Levaquin for 10 days. Return to the ED for worsening testicular pain, abdominal pain, nausea, vomiting, fever, chills, or any other concerning symptoms. Prescriptions: New morphine 15 mg tablet 15 mg PO Q4-6H PRN (Reason: pain) Qty: 10 RF: 0 No Action metronidazole [Flagyl] 500 mg tablet 500 mg PO BID 10 Days Qty: 20 RF: 0 levofloxacin 750 mg tablet 750 mg PO DAILY 10 Days Qty: 10 RF: 0 morphine 15 mg tablet 15 mg PO Q4-6H PRN (Reason: pain) Qty: 10 RF: 0 ondansetron 4 mg tablet,disintegrating 4 mg PO Q6-8H PRN (Reason: nausea and vomiting) Qty: 14 RF: 0 Referrals: Sahil Parker MD [Physician] - 2 days (Right testicular mass suspicious of neoplasm. Left epididymitis. Bilateral hydrocele) Interventions: ED Discharge Assessment Last Done: 05/15/21 21:30 Discharge Date/Time: 05/15/21 21:41 Print Language: Australian
[2021-05-15 21:23] VITALS: BP 121/61; PULSE 96; RESP 16; TEMP 36.8; O2SAT 95
== END 2021-05-15 21:41 | disposition home or self-care (01) ==
PROVIDERS: Emergency Provider Emergency Medicine Emergency Medical Services
DX: N45.1 Epididymitis (principal); N50.89 Other specified disorders of the male genital organs; N43.3 Hydrocele, unspecified; N50.811 Right testicular pain; Z76.0 Encounter for issue of repeat prescription; F12.90 Cannabis use, unspecified, uncomplicated; Z85.51 Personal history of malignant neoplasm of bladder; Z85.841 Personal history of malignant neoplasm of brain
CPT/HCPCS: 36415; 76870; 80048; 80061; 80076; 81001; 85025; 87086; 93975; 99284

== ENCOUNTER 2022-03-06 16:49 | Outpatient (REF) | payer MEDICARE, SELFPAY ==
[2022-03-07 06:38] LABS: Estimated Average Glucose 286 mg/dL; Hemoglobin A1c % 11.6 %
== END 2022-03-06 16:50 | disposition home or self-care (01) ==
LOC: HO.LAB 16:49
PROVIDERS: Absent Provider Nurse Practitioner Family; PCP Internal Medicine; Visit Provider Internal Medicine
DX: R73.9 Hyperglycemia, unspecified (principal)
CPT/HCPCS: 36415; 83036

== ENCOUNTER 2022-06-11 09:19 | Outpatient (REF) | payer MEDICARE, SELFPAY ==
[2022-06-11 09:37] LABS: MANUAL DIFF FLAG NO
[2022-06-11 10:02] LABS: Basophils Absolute Auto 0.1 X10*3/uL (0.0-0.2); Basophils Percent Auto 0.8 % (0-2); Eosinophils Absolute Auto 0.3 X10*3/uL (0.0-0.4); Eosinophils Percent Auto 3.2 % (0-4); Hematocrit 45.7 % (42.0-52.0); Hemoglobin 15.6 g/dl (14.0-18.0); Imm Gran Abs Auto 0.04 X10*3/uL (0.00-0.03); Imm Gran Pct Auto 0.5 % (0.0-0.4); Lymphocytes Absolute Auto 2.3 X10*3/uL (1.2-4.9); Lymphocytes Percent Auto 28.7 % (20-40); Mean Corpuscular HGB Conc 34.1 g/dl (31.0-36.0); Mean Corpuscular Hemoglobin 30.9 pg (27.0-33.0); Mean Corpuscular Volume 90.5 fL (80.0-98.0); Monocytes Absolute Auto 0.5 X10*3/uL (0.1-1.2); Monocytes Percent Auto 5.7 % (2-11); Neutrophils Absolute Auto 4.8 x10*3/uL (2.0-8.3); Neutrophils Percent Auto 61.1 % (45-73); Platelet Count 248 X10*3/uL (160-400); Red Blood Count 5.05 X10*6/uL (4.60-5.80); Red Cell Distribution Width 12.7 % (11.0-16.0); White Blood Count 7.9 X10*3/uL (4.8-10.8)
[2022-06-11 10:14] LABS: INTERNATIONAL NORM RATIO 0.9 (0.9-1.1); Prothrombin Time 10.2 SEC (10.0-13.1)
[2022-06-11 10:16] LABS: Partial Thromboplastin Time 27.5 SEC (26.0-36.4)
[2022-06-11 10:25] LABS: Creatinine Urine 120.29 mg/dL; Microalbum/Creatinine Ratio Ur 28.2 ug/mg cr
[2022-06-11 10:36] LABS: Alanine Aminotransferase 19 U/L (0-40); Albumin Level 3.9 g/dL (3.5-5.0); Alkaline Phosphatase 92 U/L (39-117); Anion Gap 13 (12-20); Aspartate Amino Transferase 12 U/L (5-37); Bilirubin Direct 0.3 mg/dL (0.0-0.5); Bilirubin Total 0.9 mg/dL (0.0-1.0); Blood Urea Nitrogen 19 mg/dL (9-16); Calcium 10.6 mg/dL (8.4-10.2); Carbon Dioxide 24 mmol/L (22-29); Chloride 104 mmol/L (96-108); Cholesterol 200 mg/dL; Estimated Glomerular Filt Rate > 60; Glucose Fasting 299 mg/dL (60-99); HDL Cholesterol 33 mg/dL; LDL Cholesterol Calculated 108 mg/dl; Potassium 3.7 mmol/L (3.3-5.1); Sodium 137 mmol/L (135-145); Total Protein 6.4 g/dL (6.5-8.0); Triglycerides 295 mg/dL
[2022-06-11 10:55] LABS: Thyroid Stimulating Hormone 1.28 uIU/mL (0.32-4.0)
== END 2022-06-11 09:20 | disposition home or self-care (01) ==
LOC: HO.LAB 09:19
PROVIDERS: Nurse Practitioner Family; PCP Internal Medicine; Visit Provider Internal Medicine
DX: Z01.818 Encounter for other preprocedural examination (principal); I10 Essential (primary) hypertension; E78.00 Pure hypercholesterolemia, unspecified; E11.9 Type 2 diabetes mellitus without complications
CPT/HCPCS: 36415; 80048; 80053; 80061; 80076; 82043; 82248; 84443; 85025; 85027; 85610; 85730

== ENCOUNTER 2022-08-02 09:15 | Outpatient (REF) | payer MEDICARE, OTHER, SELFPAY ==
[2022-08-02 11:29] LABS: Appearance Urine Clear; Color Urine Yellow; Glucose Urine UA Negative (Negative); Leukocyte Esterase Urine Negative (Negative); Nitrite Urine Negative (Negative); PH 5.5 (5.0-9.0); Urine Blood Negative (Negative); Urine Ketones Negative (Negative); Urine Protein Negative (Neg-Trace)
[2022-08-02 11:32] LABS: Hematocrit 46.5 % (42.0-52.0); Hemoglobin 15.9 g/dl (14.0-18.0); Mean Corpuscular HGB Conc 34.2 g/dl (31.0-36.0); Mean Corpuscular Hemoglobin 31.4 pg (27.0-33.0); Mean Corpuscular Volume 91.9 fL (80.0-98.0); Mean Platelet Volume 10.8 fL (9.4-12.4); Platelet Count 263 X10*3/uL (160-400); Red Blood Count 5.06 X10*6/uL (4.60-5.80); Red Cell Distribution Width 12.4 % (11.0-16.0); White Blood Count 7.2 X10*3/uL (4.8-10.8)
[2022-08-02 12:05] LABS: Estimated Average Glucose 169 mg/dL; Hemoglobin A1c % 7.5 %
[2022-08-02 12:39] LABS: Alanine Aminotransferase 40 U/L (0-40); Albumin Level 4.1 g/dL (3.5-5.0); Alkaline Phosphatase 73 U/L (39-117); Anion Gap 15 (12-20); Aspartate Amino Transferase 23 U/L (5-37); Bilirubin Direct 0.5 mg/dL (0.0-0.5); Bilirubin Total 1.6 mg/dL (0.0-1.0); Blood Urea Nitrogen 20 mg/dL (9-16); Calcium 11.2 mg/dL (8.4-10.2); Carbon Dioxide 24 mmol/L (22-29); Chloride 105 mmol/L (96-108); Estimated Glomerular Filt Rate > 60; Glucose Random 121 mg/dL (60-115); Potassium 4.2 mmol/L (3.3-5.1); Sodium 140 mmol/L (135-145); Total Protein 6.6 g/dL (6.5-8.0)
[2022-08-02 13:01] LABS: Thyroid Stimulating Hormone 1.51 uIU/mL (0.32-4.0)
[2022-08-08 19:56] LABS: Mixing Study - PT 10.5 sec (9.0-11.5); PTT LA 33 sec (< OR = 40)
== END 2022-08-02 09:16 | disposition home or self-care (01) ==
LOC: HO.LAB 09:15
PROVIDERS: PCP Internal Medicine; Visit Provider Internal Medicine
DX: Z01.818 Encounter for other preprocedural examination (principal)
CPT/HCPCS: 36415; 80048; 80076; 81003; 83036; 84443; 85027; 85611; 85732

== ENCOUNTER → 2022-08-14 12:42 | Outpatient (BNVA) | payer MEDICARE, OTHER, SELFPAY | PROVIDERS: PCP Internal Medicine; Visit Provider Internal Medicine | DX: Z01.810 Encounter for preprocedural cardiovascular examination (principal); I44.7 Left bundle-branch block, unspecified | CPT/HCPCS: 99202 ==

== ENCOUNTER → 2022-08-15 09:28 | Outpatient (REF) | payer MEDICARE, OTHER, SELFPAY ==
--- NOTE | ~2022-08-15 | NM_ITS ---
Myocardial perfusion study Indication: Left bundle branch block to evaluate for myocardial ischemia Technique: The patient was brought in for a Lexiscan perfusion study on 08/15/2022. Patient performed low-level exercise and was injected 0.4 mg of Lexiscan intravenously. Within a minute of injection, 30 mCi of sestamibi was given intravenously. Images were obtained using the SPECT gamma camera interlaced with the gating device. Images were obtained in supine position. Resting perfusion study was performed on 08/18/2022. Patient was administered 30 mCi of sestamibi intravenously at rest. Images were then obtained in supine position. Images obtained with and without CT attenuation. Total DLP 157 mGy-cm. Images were processed with the software and compared side to side in short axis, horizontal long axis and vertical long axis views. Findings: The stress perfusion study showed non attenuated images show minimal thinning of the basal inferior and basal inferolateral wall with mild reduction uptake in the radiotracer segments. Remainder of the LV myocardium is normally perfused. Attenuation corrected images show minimally decreased uptake in the inferoapical wall of the myocardium.. The gated study shows normal LV systolic function with calculated LVEF of 55%. LV cavity is normal in size. The gated study shows normal systolic wall thickening and contraction of segments. Resting study shows nontender images show no significant change in perfusion pattern compared to stress perfusion study. Gating at rest reveals normal systolic wall motion with ejection fraction at 68%. The findings are consistent with no clear reversible defect suggestive of ischemia. Likely normal myocardial perfusion. NM/NM sudhir perf SPECT rest & str Impression: 1. Myocardial perfusion imaging study shows likely normal myocardial perfusion 2. Gated LVEF is 65% 3. Transient ischemic dilatation not present EKG is nondiagnostic for ischemia
--- NOTE | 2022-08-15 09:32 | CA_ITS ---
Acquisition Time: 2022-08-15 09:43:07 Total Exercise Time: 00:02:00 Test Indications: ABN EKG LBBB Medications: SEE CHART Protocol: LEXISCAN Max HR: 088 BPM 59% of Pred: 147 BPM Max BP: 128/066 mmHG Max Work Load: 1.0 METS Pharmacological stress test with Lexiscan injection, while sitting, without anginal symptoms, without arrythmia, with normotensive response to injection, with nondiagnostic EKG for ischemia. In recovery he reported lightheadedness that was treated with Aminophylline 75mg IVP to reverse Lexiscan with resolution of symptom. Nuclear images pending. Test reviewed with Dr Galvez. Referred By: Casper Galvez Overread By: KARMEN LAWRENCE
== END ==
LOC: HO.CARD 09:28
PROVIDERS: PCP Internal Medicine; Visit Provider Internal Medicine
DX: I44.7 Left bundle-branch block, unspecified (principal)
CPT/HCPCS: 78452; 93017; A9500; J0280; J2785

== ENCOUNTER → 2022-08-22 13:40 | Outpatient (REF) | payer MEDICARE, OTHER, SELFPAY ==
--- NOTE | 2022-08-22 13:43 | CA_ITS ---
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 There is severely increased left ventricular wall thickness. The visually estimated ejection fraction is between 55-60%. - Normal right ventricular cavity size and systolic function. - There is mild dilatation of the ascending aorta measuring 3.90 cm. Findings Left Ventricle Normal left ventricular size and systolic function. There is severely increased left ventricular wall thickness. The visually estimated ejection fraction is between 55-60%. There is no evidence of regional wall motion abnormalities. There is paradoxical septal motion consistent with a left bundle branch block. Diastolic function is indeterminate on the basis of available data. Right Ventricle Normal right ventricular cavity size and systolic function. Atria The left atrium is normal in size. The right atrium is normal in size. Aortic Valve Normal aortic valve structure and function. There is no aortic valve stenosis. There is trace (trivial) aortic valve regurgitation. Mitral Valve The mitral valve appears normal. There is no mitral valve regurgitation. There is no mitral valve stenosis. Pulmonic Valve The pulmonic valve is likely normal. Tricuspid Valve Normal tricuspid valve structure. There is trace tricuspid valve regurgitation. Normal right atrial pressure. There is no evidence of pulmonary hypertension. Great Vessels There is mild dilatation of the ascending aorta measuring 3.90 cm. The visualized portions of the pulmonary artery and branches are normal. Venous The inferior vena cava is normal in size and collapses greater than 50% with inspiration. Pericardium/Pleural There is no evidence of pericardial effusion. Prior Study Comparison No prior study available for comparison. Measurements 2D Linear Measurements IVSd: 1.52 0.6-0.9/0.6-1.0 cm LVIDd: 3.94 3.9-5.3/4.2-5.9 cm LVIDd Index: 1.97 2.4-3.2/2.2-3.1 cm/m2 LVIDs: 2.63 2.0-3.6 cm LVPWd: 1.56 0.7-1.1 cm Ao Root: 3.70 2.1-3.5 cm LA Diam: 3.70 2.7-3.8/3.0-4.0 cm LAIDs Index: 1.85 1.5-2.3 cm/m2 LV Mass: 296.18 67-162/88-224 g LV Mass Index: 148.09 43-95/49-115 g/m2 LVOT Diam: 2.00 3.0+(-)1.3 cm 2D Systolic Function EF 4C: 62.30 >55% EF 2C: 58.40 >55% EF BiP: 61.40 >55% Mitral Valve MV Pk E: 0.30 MV PK A: 0.72 MV Decel Time: 109.00 E/A: 0.40 E'Lateral: 4.68 E'Medial: 5.11 E/E' Med: 5.90 E/E' Lat: 6.50 PHT: 32.00 MVA PHT: 6.88 Decel [place]: 2.80 Aortic Valve AoV Pk Jaylen: 1.15 AoV Mn Jaylen: 0.75 AoV VTI: 0.23 AoV Pk Grad: 5.00 Aov Mn Grad: 3.00 LVOT LVOT Diam: 2.00 LVOT Area: 3.14 Diastolic Function MV Pk E: 0.30 MV Pk A: 0.72 E/A: 0.40 E'Medial: 5.11 E/E' Med: 5.90 E' Laterial: 4.68 E/E' Lat: 6.50 Right Ventricle TAPSE (mm): 19.00 TVS' Jaylen: 11.00 Tricuspid Valve TR Pk Jaylen: 1.95 TR Pk Grad: 15.00 RA Press: 3.00 RVSP: 18.00 Great Vessels Aorta Ao Root-2D: 3.70 2.0-3.7 cm Ao Asc: 3.90 2.1-3.4 cm Pulmonary Valve PV Pk Jaylen: 1.09 Peak PV Grad: 5.00 Updated in Other Vendor System with Status of Final Zak Han MD electronically signed on 08/24/2022 7:38:03 PM with status of Final
== END ==
LOC: HO.CARD 13:40
PROVIDERS: Visit Provider Internal Medicine
DX: I44.7 Left bundle-branch block, unspecified (principal)
CPT/HCPCS: 93306

== ENCOUNTER → 2022-10-01 14:08 | Outpatient (BNVA) | payer MEDICARE, SELFPAY | PROVIDERS: PCP Internal Medicine; Referring Provider Internal Medicine; Visit Provider Internal Medicine | DX: Z01.810 Encounter for preprocedural cardiovascular examination (principal); I44.7 Left bundle-branch block, unspecified | CPT/HCPCS: 99212 ==

== ENCOUNTER 2022-10-08 12:58 | Outpatient (REF) | payer MEDICARE, SELFPAY ==
[2022-10-08 16:27] LABS: Urine Cytology See Pathology rpt
== END 2022-10-08 12:59 | disposition home or self-care (01) ==
LOC: HO.LAB 12:58
PROVIDERS: PCP Internal Medicine; Visit Provider Urology
DX: N50.89 Other specified disorders of the male genital organs (principal); N40.0 Benign prostatic hyperplasia without lower urinary tract symptoms; Z85.51 Personal history of malignant neoplasm of bladder
CPT/HCPCS: 51798; 88112; 99202

== ENCOUNTER 2022-10-22 13:38 | Outpatient (REF) | payer MEDICARE, SELFPAY ==
--- NOTE | ~2022-10-22 | US_ITS ---
EXAMINATION: US SCROTUM CLINICAL INFORMATION: Testicular mass. COMPARISON: None TECHNIQUE: A sonogram of the scrotum was performed assessing laurent-scale appearance and color Doppler flow. Spectral Doppler analysis of the arterial and venous flow were performed in the testes bilaterally. FINDINGS: RIGHT: Right testicle measures 3.5 x 2.0 x 2.3 cm, volume 8.4 mL. At the interpolar aspect medially, an 8 x 6 x 6 mm hypoechoic, circumscribed mass is seen with associated central color Doppler flow. This measured 6 x 6 x 6 mm on the ultrasound examination dated 05/15/2021. Spectral Doppler analysis of the arterial and venous flow is normal in the right testis. Right appendix testis noted. Right epididymal head is normal in size. A small right hydrocele is seen. No right varicocele is seen. A 3 mm epididymal head cyst versus spermatocele is seen. Right epididymal Doppler flow is normal. LEFT: Left testicle measures 2.6 x 1.5 x 2.4 cm, volume 4.9 mL. No focal testicular parenchymal lesions are visualized. Spectral Doppler analysis of the arterial and venous flow is normal in the left testis. Left epididymal head is normal in size. No left hydrocele is seen. There are left varicoceles. Left epididymal Doppler flow is normal. US/US scrotum IMPRESSION: 1. A hypoechoic mass is redemonstrated in the mid right testis, slightly increased in measurements as detailed above. Urology evaluation and management is recommended. 2. There is a small right hydrocele. 3. A tiny right femoral head cyst versus spermatocele seen. 4. There are left varicoceles.
== END 2022-10-22 13:39 | disposition home or self-care (01) ==
LOC: HO.US 13:38
PROVIDERS: Visit Provider Urology
DX: Z12.5 Encounter for screening for malignant neoplasm of prostate (principal); N50.89 Other specified disorders of the male genital organs
CPT/HCPCS: 36415; 76870; 84153; 84154

== ENCOUNTER 2022-10-22 14:16 | Outpatient (REF) | payer MEDICARE, SELFPAY ==
[2022-10-23 10:09] LABS: Free Prostate Spec Ag 0.8 ng/mL; Percent Free Prostate Spec Ag 9 % (calc) (>25); Prostate Specific Ag Total 9.2 ng/mL (< OR = 4.0)
== END 2022-10-22 14:17 | disposition home or self-care (01) ==
LOC: HO.LAB 14:16
PROVIDERS: Visit Provider Urology
DX: Z13.89 Encounter for screening for other disorder (principal)
CPT/HCPCS: 36415; 84153; 84154

== ENCOUNTER 2022-11-03 14:01 | Outpatient (REF) | payer MEDICARE, SELFPAY ==
--- NOTE | ~2022-11-03 | CT_ITS ---
EXAMINATION: CT ABDOMEN AND PELVIS WITHOUT AND WITH CONTRAST CLINICAL INFORMATION: History of bladder neoplasm. COMPARISON: CT abdomen and pelvis with contrast 05/31/2021. TECHNIQUE: Multidetector volumetric imaging was performed of the abdomen and pelvis before and after the IV administration of 85 mL of Omnipaque 300 intravenous contrast. Sagittal and coronal reformatted images were obtained on the technologist's workstation. This CT examination was performed using dose optimization techniques as appropriate, variously including the following: *Automated exposure control. *Adjustment of mA and/or kV according to patient size (this includes techniques or standardized protocols for targeted exams where dose is matched to indication/reason for exam; i.e. extremities or head). *Use of iterative reconstruction technique. DLP: 1126 mGy-cm FINDINGS: LUNG BASES: The lung bases are clear. LIVER, GALLBLADDER, AND BILIARY TREE: The liver is normal in size, shape, and attenuation. No focal hepatic lesion or biliary ductal dilatation is present. The gallbladder is unremarkable with no evidence of radiopaque gallstones, gallbladder wall thickening, or obvious pericholecystic inflammatory changes. PANCREAS: Unremarkable. SPLEEN: Unremarkable. ADRENAL GLANDS: Unremarkable. KIDNEYS AND URETERS: The kidneys are normal in size, shape, and attenuation. No hydronephrosis, hydroureter, or calculi seen. No perinephric stranding. There is a 1.8 cm cyst midpole in the right kidney. BLADDER: The bladder is opacified from excreted urinary contrast. No bladder wall thickening seen. No focal mass or enhancement visualized. GASTROINTESTINAL TRACT: Scattered stool, diverticula and gas is seen throughout the colon without distention or diverticulitis. The small bowel loops are normal caliber. The stomach is nondistended. Appendix is normal caliber. ABDOMINAL WALL: There are prominent bilateral inguinal canals containing fat. LYMPH NODES: There are left para-aortic retroperitoneal lymph nodes with the largest lymph node measuring 2 cm on axial image 47/3. VASCULAR: Unremarkable. PELVIC VISCERA: Bilateral prominent inguinal canals. The prostate gland is normal size with punctate calcifications. No free fluid seen. OSSEOUS STRUCTURES: There are degenerative disc changes at L5-S1 and L4-L5 disc level with ventral spondylosis lower dorsal and lumbar spine. CT/CT abdomen pelvis wo/w IV con IMPRESSION: 1. No radiopaque urolith or hydroureteronephrosis. 2. The bladder is unremarkable. 3. Enlarged left para-aortic retroperitoneal 2 cm lymph nodes. 4. Colonic diverticulosis without diverticulitis. 5. Bilateral prominent inguinal canals containing fat. 6. Degenerative disc changes at L4-L5 and L5-S1 disc levels with ventral spondylosis lower dorsal and lumbar spine. Fleischner guidelines were followed.
[2022-11-05 08:24] LABS: Creatinine POC 0.9 mg/dL (0.5-1.4); GFR POC > 60
== END 2022-11-03 14:02 | disposition home or self-care (01) ==
LOC: HO.CT 14:01
PROVIDERS: PCP Internal Medicine; Visit Provider Urology
DX: Z85.51 Personal history of malignant neoplasm of bladder (principal)
CPT/HCPCS: 74178; 82565

== ENCOUNTER 2022-11-13 15:05 | Outpatient (REF) | payer MEDICARE, SELFPAY ==
--- NOTE | ~2022-11-13 | MR_ITS ---
MR BRAIN WITHOUT AND WITH CONTRAST CLINICAL INFORMATION: Brain tumor. COMPARISON: None TECHNIQUE: Multiplanar, multisequence MRI of the brain was obtained before and after the intravenous administration of 10 mL of Gadavist. FINDINGS: There is a large mixed cystic and enhancing solid sellar/suprasellar mass extending anteriorly along the floor the anterior cranial fossa, laterally within the right greater than left sylvian fissure, superiorly significantly filling the suprasellar cistern, and posteriorly partially effacing the prepontine cistern. The lesion measures up to 6 cm AP by 5.2 cm CC by 5.6 cm TV in size. The lesion is inseparable from the optic chiasm and hypothalamus. The lesion encases the proximal vessels of the [place] and posteriorly displaces the basilar artery and P1 STRIPPING CUTTER AND WINDER segments. The lesion results in significant effacement of the anterior aspect of the third ventricle. No edema within the brain parenchyma adjacent to the lesion. Susceptibility signal along the periphery of the lesion and along the periphery of the sylvian fissures bilaterally and multiple parasagittal gyral crests most likely reflects chronic siderosis. There is lateral and third ventriculomegaly which is disproportionate to sulcal prominence with an associated narrowed callosal angle which can be correlated for clinical signs of normal pressure hydrocephalus. There is global cerebral volume loss and there is mild chronic microangiopathy. There is a 2.5 mm nodular flow void projecting superiorly from the right internal carotid artery just distal to the ophthalmic artery origin on image 12 of series 9 for which a CTA of the head would be helpful in excluding an aneurysm. Paranasal sinuses exhibit mild mucosal thickening. MR/MR head/brain wo/w con IMPRESSION: - There is a large up to 6 cm mixed cystic and enhancing solid sellar/suprasellar mass which is inseparable from the optic chiasm and hypothalamus, resulting in significant distortion of the anterior aspect of the third ventricle and lamina terminalis. The lesion extends anteriorly along the floor of the anterior cranial fossa, extends laterally into the right greater than left sylvian fissure, nearly completely fills the suprasellar cistern, and extends posteriorly into the prepontine cistern. The lesion results in significant encasement of the vessels of the proximal [place]. A giant craniopharyngioma is suspected and a head CT would be helpful in assessing for any calcification. The appearance would be unusual for an invasive macroadenoma. The sellar involvement would be atypical for a hypothalamic/optic pathway tumor. - Susceptibility signal along the periphery of the lesion and along the periphery of the sylvian fissures bilaterally and multiple parasagittal gyral crests most likely reflects chronic siderosis. - There is a 2.5 mm nodular flow void projecting superiorly from the right internal carotid artery just distal to the ophthalmic artery origin on image 12 of series 9 for which a CTA of the head would be helpful in excluding an aneurysm. - There is lateral and third ventriculomegaly which is disproportionate to sulcal prominence with an associated narrowed callosal angle which can be correlated for clinical signs of normal pressure hydrocephalus.
== END 2022-11-13 15:06 | disposition home or self-care (01) ==
LOC: HO.MRI 15:05
PROVIDERS: Visit Provider Psychiatry & Neurology Neurology
DX: D49.6 Neoplasm of unspecified behavior of brain (principal)
CPT/HCPCS: 70553; A9585

== ENCOUNTER 2022-11-14 13:13 | Outpatient (REF) | payer MEDICARE, SELFPAY ==
[2022-11-14 16:39] LABS: Urine Cytology See Pathology rpt
== END 2022-11-14 13:14 | disposition home or self-care (01) ==
LOC: HO.LAB 13:13
PROVIDERS: PCP Internal Medicine; Visit Provider Urology
DX: Z85.51 Personal history of malignant neoplasm of bladder (principal)
CPT/HCPCS: 52000; 88112; 99212

== ENCOUNTER 2022-11-18 14:29 | Outpatient (REF) | payer MEDICARE, SELFPAY ==
[2022-11-18 16:30] LABS: Blood Urea Nitrogen 20 mg/dL (9-16); Estimated Glomerular Filt Rate > 60
[2022-11-18 17:02] LABS: Folate 7.5 ng/mL (> or = 4.0); Vitamin B12 254 pg/mL (200-900)
[2022-11-19 08:07] LABS: Syphilis Screen Nonreactive (Nonreactive)
[2022-11-19 17:08] LABS: Lyme Abs Screen <0.90 index
== END 2022-11-18 14:30 | disposition home or self-care (01) ==
LOC: HO.LAB 14:29
PROVIDERS: PCP Internal Medicine; Visit Provider Psychiatry & Neurology Neurology
DX: D49.6 Neoplasm of unspecified behavior of brain (principal); F03.90 Unspecified dementia, unspecified severity, without behavioral disturbance, psychotic disturbance, mood disturbance, and anxiety
CPT/HCPCS: 36415; 82565; 82607; 82746; 84520; 86617; 86618; 86780

== ENCOUNTER 2022-12-18 15:25 | Outpatient (REF) | payer MEDICARE, SELFPAY ==
[2022-12-18 15:47] LABS: Hematocrit 46.5 % (42.0-52.0); Hemoglobin 15.8 g/dl (14.0-18.0); Mean Corpuscular Hemoglobin 30.2 pg (27.0-33.0); Mean Corpuscular Volume 88.9 fL (80.0-98.0); Mean Platelet Volume 9.7 fL (9.4-12.4); Platelet Count 323 X10*3/uL (160-400); Red Blood Count 5.23 X10*6/uL (4.60-5.80); White Blood Count 8.7 X10*3/uL (4.8-10.8)
[2022-12-18 16:13] LABS: Estimated Average Glucose 169 mg/dL; Hemoglobin A1c % 7.5 %
[2022-12-18 16:26] LABS: Alanine Aminotransferase 19 U/L (0-40); Alkaline Phosphatase 87 U/L (39-117); Anion Gap 16 (12-20); Aspartate Amino Transferase 15 U/L (5-37); Bilirubin Direct 0.2 mg/dL (0.0-0.5); Bilirubin Total 1.1 mg/dL (0.0-1.0); Blood Urea Nitrogen 18 mg/dL (9-16); Calcium 12.2 mg/dL (8.4-10.2); Carbon Dioxide 23 mmol/L (22-29); Chloride 106 mmol/L (96-108); Cholesterol 200 mg/dL; Estimated Glomerular Filt Rate > 60; Glucose Random 210 mg/dL (60-115); HDL Cholesterol 34 mg/dL; LDL Cholesterol Calculated 115 mg/dl; Sodium 141 mmol/L (135-145); Total Protein 6.5 g/dL (6.5-8.0); Triglycerides 258 mg/dL
== END 2022-12-18 15:26 | disposition home or self-care (01) ==
LOC: HO.LAB 15:25
PROVIDERS: PCP Internal Medicine; Visit Provider Internal Medicine
DX: C67.9 Malignant neoplasm of bladder, unspecified (principal); E11.9 Type 2 diabetes mellitus without complications; F03.90 Unspecified dementia, unspecified severity, without behavioral disturbance, psychotic disturbance, mood disturbance, and anxiety
CPT/HCPCS: 36415; 80048; 80061; 80076; 83036; 84443; 85027

== ENCOUNTER 2023-01-05 08:31 | Day surgery (SDC) | payer MEDICARE, SELFPAY ==
[2022-12-31 09:36] VITALS: BMI 34.0
[2022-12-31 10:34] VITALS: BMI 33.9
[2023-01-05] VITALS (7 sets, daily range): BP systolic 126–150; BP diastolic 71–90; PULSE 79–95; RESP 15–18; TEMP 36.7–36.9; O2SAT 93–98
[2023-01-05 09:34] LABS: Glucose, Whole Blood 221 mg/dL (60-115)
[2023-01-05] MEDS: Acetaminophen 325 MG TABLET 650 MG PO (09:36)
[2023-01-05] MEDS: levoFLOXacin 500 MG TABLET PO (09:36)
[2023-01-05] MEDS: Lactated Ringers 1,000 ML 50 ML IVCONT (09:38)
--- NOTE | 2023-01-05 11:00 | MHC.SHP ---
Pre-Procedural Eval Section A Date of Service: 01/05/23 The patient is an INPATIENT: No Changes since office visit: Yes Cold of Flu in the past 2 weeks, Yes New Medical Problems, Yes Changes in Medication and Yes Patient answered all questions The History & Physical has been completed within 30 days and I have reviewed it.: Yes Section B Chief Complaint: Malignant neoplasm of bladder, unspecified Relevant Social History: None Present Medications: None Medical History: No relevant PMH History of Previous Operations: Relevant previous surgery/procedure and date(s) Allergies: Allergies Allergy/AdvReac Type Severity Reaction Status Date / Time Seasonal Allergies Allergy Intermediate Sneezing, Verified 01/05/23 08:59 watery eyes Penicillins [PCN] Allergy Mild Rash Verified 01/05/23 08:59 Review of Systems Sugical H&P ROS: Negative: Constitution, Cardiovascular, Respiratory, Neurological, Psychiatric, Hem-Onc, Allergic/Immunologic, Gastrointestinal, Genitourinary, Musculoskeletal, Integumentary, Endocrine and Eyes/Ears/Nose/Throat Exam Surgical H&P Exam: Normal: HEENT, Normal: Heart, Normal: Lungs, Normal: Extremities, Normal: Abdomen, Normal: Skin and Normal: Neurological Plan Diagnosis/Plan: Unchanged ( cystoscopy, bladder biopsy, fulguration) I have reviewed the history and physical and performed a pertinent physical examination on my patient. No changes have occurred unless specified. Time Spent With Patient Time: Total time managing care of this patient today ____ minutes.
--- NOTE | 2023-01-05 11:14 | P.CONAN_ITS ---
HPI - Anesthesia Eval Consult details Narrative: for cysto, fulgaration PMFSH Active Problems Active Problems: All Active Problems (Updated 12/31/22 @ 10:48 by Melissa Grimm, RN) Hypercholesterolemia (Acute) Pre-operative clearance (Acute) Preoperative cardiovascular examination (Acute) LBBB (left bundle branch block) (Acute) Frequent falls (Acute) History of bladder cancer (Acute) Testicular mass (Acute) Screening PSA (prostate specific antigen) (Acute) BPH loc w/o ur obs/LUTS (Acute) Dementia (Acute) Diabetes mellitus (Acute) Bladder cancer (Acute) Past Medical History Medical History Bladder cancer Brain tumor Cataract Dementia Diabetes mellitus Diverticulosis Family History Family History Other Substance use disorder Family history of problems with anesthesia: No Surgical History Surgical History (Updated 01/05/23 @ 08:56 by Sabrina Hobbs, RN) History of bladder surgery History of total right knee replacement Hx of colonoscopy Hx of tonsillectomy History of Problems with Anesthesia: No Social History Social History (Updated 12/31/22 @ 10:48 by Melissa Grimm, MARGARITO) Housing: Apartment Are you a primary healthcare translator to a significant other at home: No Do you presently have visiting nurse or other home services: Yes (ACCELERATOR TECHNICIAN 2x week, 4 supportive adult children) Alcohol intake: current Alcohol intake frequency: a few times a week Alcohol type: beer Patient Tobacco Use Status: Never used Tobacco e-Cigarette/Vaping Use: Never Used Second Hand Smoke Exposure: No Use of substances other than those prescribed or required for medical reasons: No Are you DNR?: No Advance Directives: No Advance Directives Information Provided: Yes Advance Directives on File: No Poor oral hygiene: No service: No Current occupational status: retired Cognitive needs: Yes (cane) Hearing needs: No Vision needs: Yes (glaases) Meds Allergies Allergy/AdvReac Type Severity Reaction Status Date / Time Seasonal Allergies Allergy Intermediate Sneezing, Verified 01/05/23 08:59 watery eyes Penicillins [PCN] Allergy Mild Rash Verified 01/05/23 08:59 Active Medications: Current Medications Lactated Ringer's (Lr) 1,000 mls @ 50 mls/hr IVCONT .Q20H NEYDA Last Admin: 01/05/23 09:38 Dose: 50 mls/hr Home Medications Medication Instructions Recorded Confirmed Last Taken Type diaper,brief,adult,disposable 09/12/21 12/26/22 Unknown History (Briefs, Adult-Extra Large) Exam Exam Date and Time: January 05, 2023 1114 Height,Weight and Vital Signs: Height 5 ft 6 in Weight 95.254 kg Last Vital Signs Temp 98.0 F 01/05/23 09:32 Pulse 84 01/05/23 09:32 Resp 17 01/05/23 09:32 BP 142/71 H 01/05/23 09:32 Pulse Ox 97 01/05/23 09:32 O2 Del Method Room Air 01/05/23 09:32 Pertinent Lab Results Pertinent Lab Results: Laboratory Tests 01/05/23 09:19 POC Glucose 221 H Airway Mallampati Class: II TM Dist: >3cm Neck ROM: Full Heart: ok Lungs: ok Assessment and Plan Assessment Anesthesia Assessment: Anesthesia Plan Discussed and Chart Reviewed Final Anesthetic Review Family History of Problems with Anesthesia: No History of Problems with Anesthesia: No NPO: Yes ASA Class: IV Final Preanesthetic Review: No Changes in Pt Med Stat, Meds/Allgs Chart Reviewed, Consent Obtained/Reviewed and Anes Risks/Benef Reviewed Patient Risk: Intermediate Procedure Risk: Low Anesthetic Plan Anesthetic Plan: GA and Agree w/ Assess. and Plan Disposition: Standard PACU
--- NOTE | 2023-01-05 12:07 | W.PM.OPN ---
Operative Note Operative Note Date of Service: 01/05/23 Narrative: PreOperative Diagnosis: bladder cancer Post Operative Diagnosis: bladder cancer Procedure: cystoscopy, bladder biopsy, fulguration Surgeon: Dr Sahil Parker Anesthesia: LMA Indications for procedure: Superficial bladder cancer. Here for cystoscopy, bladder biopsy. Evaluation. Procedure: After informed consent was verified the patient was brought to the operating room and placed in a supine position. Anesthesia was administered per protocol. The patient was placed in modified dorsal lithotomy position and prepped and draped in a sterile fashion. Safety pause time-out was performed. Antibiotics being given. Cystoscopy was performed. Prior areas of resection were noted. Areas of change was seen around the resection area on the upper left bladder sidewall. This area was biopsied. Fulguration performed. Using narrow band imaging areas of change was so noted along the trigone. There was a small area on the opening of the left ureteric orifice just proximal. This area was fulgurated. Testicles were examined. No palpable disease felt on right side. The patient tolerated the procedure well. They were extubated in operating room and transferred in stable conditions recovery area. Pathology: Bladder biopsies Drains: None
== END 2023-01-05 15:01 | disposition home or self-care (01) ==
PROVIDERS: PCP Internal Medicine; Visit Provider Urology
PROC: (CPT 52234; principal; 2023-01-05 10:20)
DX: C67.9 Malignant neoplasm of bladder, unspecified (principal); N30.20 Other chronic cystitis without hematuria; N40.0 Benign prostatic hyperplasia without lower urinary tract symptoms; R97.20 Elevated prostate specific antigen [PSA]; J30.2 Other seasonal allergic rhinitis; F03.90 Unspecified dementia, unspecified severity, without behavioral disturbance, psychotic disturbance, mood disturbance, and anxiety; E11.9 Type 2 diabetes mellitus without complications; Z79.84 Long term (current) use of oral hypoglycemic drugs; Z79.899 Other long term (current) drug therapy; Z88.0 Allergy status to penicillin; Z86.011 Personal history of benign neoplasm of the brain
CPT/HCPCS: 52234; 52204; 82947; 88305; J3010

== ENCOUNTER → 2023-01-22 11:41 | Outpatient (BNVA) | payer MEDICARE, SELFPAY | PROVIDERS: PCP Internal Medicine; Visit Provider Urology | DX: R97.20 Elevated prostate specific antigen [PSA] (principal); C67.9 Malignant neoplasm of bladder, unspecified; C71.9 Malignant neoplasm of brain, unspecified; N40.1 Benign prostatic hyperplasia with lower urinary tract symptoms; N13.8 Other obstructive and reflux uropathy | CPT/HCPCS: Q3014 ==

== ENCOUNTER 2023-04-21 12:04 | Outpatient (REF) | payer MEDICARE, SELFPAY ==
[2023-04-21 12:49] LABS: Hematocrit 43.6 % (42.0-52.0); Hemoglobin 15.3 g/dl (14.0-18.0); Mean Corpuscular HGB Conc 35.1 g/dl (31.0-36.0); Mean Corpuscular Hemoglobin 31.5 pg (27.0-33.0); Mean Corpuscular Volume 89.7 fL (80.0-98.0); Mean Platelet Volume 10.5 fL (9.4-12.4); Platelet Count 230 X10*3/uL (160-400); Red Blood Count 4.86 X10*6/uL (4.60-5.80); Red Cell Distribution Width 12.6 % (11.0-16.0); White Blood Count 7.5 X10*3/uL (4.8-10.8)
[2023-04-21 13:02] LABS: Estimated Average Glucose 206 mg/dL; Hemoglobin A1c % 8.8 %
[2023-04-21 13:20] LABS: Alanine Aminotransferase 40 U/L (0-40); Albumin Level 3.6 g/dL (3.5-5.0); Alkaline Phosphatase 99 U/L (39-117); Anion Gap 13 (12-20); Aspartate Amino Transferase 24 U/L (5-37); Bilirubin Direct 0.2 mg/dL (0.0-0.5); Bilirubin Total 0.9 mg/dL (0.0-1.0); Blood Urea Nitrogen 21 mg/dL (9-16); Calcium 11.3 mg/dL (8.4-10.2); Carbon Dioxide 21 mmol/L (22-29); Chloride 107 mmol/L (96-108); Cholesterol 164 mg/dL; Estimated Glomerular Filt Rate 59; Glucose Random 299 mg/dL (60-115); HDL Cholesterol 33 mg/dL; LDL Cholesterol Calculated 60 mg/dl; Potassium 3.8 mmol/L (3.3-5.1); Sodium 137 mmol/L (135-145); Total Protein 6.2 g/dL (6.5-8.0); Triglycerides 357 mg/dL
[2023-04-21 14:07] LABS: Appearance Urine Clear; Color Urine Yellow; Glucose Urine UA >=1000 mg/dL (Negative); Leukocyte Esterase Urine Negative (Negative); Nitrite Urine Negative (Negative); PH 5.5 (5.0-9.0); Specific Gravity - Urine >= 1.030 (1.005-1.025); UMIC TRIGGER UA YES; Urine Blood Negative (Negative); Urine Ketones Trace mg/dL (Negative); Urine Protein Negative (Neg-Trace)
[2023-04-21 14:18] LABS: Bacteria Urine None Seen (None Seen); Hyaline Casts Urine 0-2 /LPF (0-2); RBC Urine 0-2 /HPF (0-2); Squamous Epithelial Cell Urine 0-2 /HPF (0-2); WBC Urine 0-5 /HPF (0-5)
[2023-04-21 15:39] LABS: PSA,Total (Free>4and<10) 3.56 ng/mL (0.00-4.00)
== END 2023-04-21 12:05 | disposition home or self-care (01) ==
LOC: HO.LAB 12:04
PROVIDERS: Absent Provider Urology; PCP Internal Medicine; Visit Provider Internal Medicine
DX: E11.9 Type 2 diabetes mellitus without complications (principal); R97.20 Elevated prostate specific antigen [PSA]; Z12.5 Encounter for screening for malignant neoplasm of prostate
CPT/HCPCS: 36415; 80048; 80061; 80076; 81001; 83036; 84153; 84443; 85027

== ENCOUNTER 2023-04-24 14:55 | Outpatient (AMB) | payer MEDICARE, SELFPAY ==
--- NOTE | 2023-04-24 15:09 | MHC.OFFVIS ---
Intake Intake Visit Reasons: 3M PSA(set) Intake Note: Patient is present for Follow Up PSA Urology Med: Finasteride Antibiotic Allergy: Penicillins Blood Thinner: None Allergies Seasonal Allergies Allergy (Intermediate, Verified 04/24/23 15:10) Sneezing, watery eyes Penicillins [PCN] Allergy (Mild, Verified 04/24/23 15:10) Rash Medication List - Last Reconciled 04/24/23 by Sahil Parker MD blood sugar diagnostic (FreeStyle Lite Strips) Once a day blood-glucose meter As directed diaper,brief,adult,disposable (Briefs, Adult-Extra Large) As directed finasteride 5 mg PO DAILY 90 days lancets As directed metformin 500 mg PO BID 90 days sitagliptin phosphate (Januvia) 100 mg PO DAILY HPI HPI Comments History of Present Illness Details Asher is a pleasant male. He is a patient of Dr. Zuniga. 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 [place] Recent diagnosis of nonresectable progressive brain tumor Biopsy showed chronic cystitis PSA 11/03 9.2 9%, 05/03 3.6 Would continue to manage with finasteride and monitor PSA given concurrent diagnoses Bladder cancer Prior therapy - resection with intravesical therapy Imaging - 07/03 CT scan bilateral small kidney stones 4 mm Lower Urinary Tract Symptoms prior BPH current therapy finasteride PFSH Medical History Bladder cancer Brain tumor Cataract Dementia Diabetes mellitus Diverticulosis Surgical History History of bladder surgery History of total right knee replacement Hx of colonoscopy Hx of tonsillectomy Family History Other Substance use disorder Social History Housing: Apartment Are you a primary resident care supervisor to a significant other at home: No Do you presently have visiting nurse or other home services: Yes (DRAPERY SEWER HAND 2x week, 4 supportive adult children) Alcohol intake: current Alcohol intake frequency: a few times a week Alcohol type: beer Patient Tobacco Use Status: Never used Tobacco e-Cigarette/Vaping Use: Never Used Second Hand Smoke Exposure: No service: No Current occupational status: retired Cognitive needs: Yes (cane) Hearing needs: No Vision needs: Yes (glaases) Review of Systems Const Denies chills and Denies fever(s) Card Reports no additional complaints and Denies syncope Resp Denies cough GI Denies abdominal pain and Denies heartburn Reports as per HPI and Denies change in libido Neuro Denies syncope Psych Denies change in libido Endo Denies change in libido Physical Exam Const General: cooperative, healthy appearing, comfortable and no acute distress Orientation/consciousness: patient oriented x3 HEENT Face and sinus: Yes normal facial exam Mouth: moist mucous membranes Neck Neck: Yes normal visual inspection, Yes full ROM and Yes trachea midline Chest Chest palpation & inspection: normal inspection of the chest Resp Effort & Inspection: normal respiratory effort, able to speak in complete sentences and no respiratory distress GI Inspection: Yes normal to inspection Back/Spine/Pelvis Cervical Spine: normal cervical lordosis Thoracic/Lumbar Spine: thoracic and lumbar spine normal to inspection Skin General skin exam: no rashes or lesions noted Neuro General: patient oriented x3, gait normal, tone normal and moves all extremities Extrem General: Yes normal to inspection and Yes capillary refill normal Assessment & Plan Assessment & Plan (1) Elevated PSA: Code(s): R97.20 - Elevated prostate specific antigen [PSA] (2) History of bladder cancer: Code(s): Z85.51 - Personal history of malignant neoplasm of bladder (3) BPH loc w/o ur obs/LUTS: Code(s): N40.0 - Benign prostatic hyperplasia without lower urinary tract symptoms Plan 6 month follow-up Tele medicine Orders: Orders Prostate Specific Antigen 04/21/23 R97.20 - Elevated prostate specific antigen [PSA] PSA,Total (Free>4and<10) 6 Months R97.20 - Elevated prostate specific antigen [PSA] Medications: Refilled finasteride Daily tablet 5 mg PO DAILY 90 days 90 tabs 1RF BPH R97.20 - Elevated prostate specific antigen [PSA] Patient Instructions: Imaging studies, laboratory and physical exam results were discussed and reviewed in detail. No major barriers to patient understanding were identified. An opportunity to ask questions regarding the treatment plan was provided. All questions were answered. The patient expressed understanding and agreement with the above treatment plan. The patient is aware they should contact our office by phone for worsening of their current condition or the appearance of new urologic symptoms. Compliance is encouraged with any medications and followup testing that is ordered. It is a privilege to participate in the urologic care of your patient. If you have any questions or concerns regarding treatment for the above conditions, or other urologic issues, please do not hesitate to contact me. The office telephone contact is [phone]. This note is constructed using voice recognition software. While every effort has been made to ensure accuracy liquor grinding mill operator errors may have been included. Yours sincerely, Dr Sahil Parker MD, [facility] - Urology Providers of Expert, Compassionate Care for the Genitourinary System Coding Level of Care Code Est Pt Level 3 (66539) Diagnoses Elevated PSA R97.20 History of bladder cancer Z85.51 BPH loc w/o ur obs/LUTS N40.0
== END 2023-04-24 15:36 | disposition home or self-care (01) ==
PROVIDERS: Visit Provider Urology
DX: R97.20 Elevated prostate specific antigen [PSA] (principal); Z85.51 Personal history of malignant neoplasm of bladder; N40.0 Benign prostatic hyperplasia without lower urinary tract symptoms
CPT/HCPCS: 99213

== ENCOUNTER → 2023-04-24 14:55 | Outpatient (BNVA) | payer MEDICARE, SELFPAY | PROVIDERS: Visit Provider Urology | DX: N40.0 Benign prostatic hyperplasia without lower urinary tract symptoms (principal); R97.20 Elevated prostate specific antigen [PSA]; Z85.51 Personal history of malignant neoplasm of bladder | CPT/HCPCS: 99212 ==

== ENCOUNTER 2023-04-30 15:04 | Outpatient (AMB) | payer MEDICARE, SELFPAY ==
--- NOTE | 2023-04-30 15:12 | A.OFFPC_ITS ---
Vital Signs 04/30/23 15:13 Height 5 ft 6 in Weight 218 lb 11.177 oz BMI 35.3 BP 124/72 Blood Pressure Location Lt brachial Position Sitting Pulse 83 Pulse Source Pulse Oximeter Pulse Oximetry (%) 98 Oxygen Delivery Method Room Air Intake Visit Reasons: 3 month f/u (pushed out) Intake Note: Patient is here to follow up on Hypercholesterolemia, DM, Bladder cancer. General Milling Superintendent Required: No Seals Engraver: Present Accompanied by: Daughter Allergies Seasonal Allergies Allergy (Intermediate, Verified 05/20/23 16:40) Sneezing, watery eyes Penicillins [PCN] Allergy (Mild, Verified 05/20/23 16:40) Rash Medication List - Last Reconciled 05/20/23 by Quinten Bain MD blood sugar diagnostic (FreeStyle Lite Strips) Once a day blood-glucose meter As directed diaper,brief,adult,disposable (Briefs, Adult-Extra Large) As directed dulaglutide (Trulicity) 0.75 mg (0.5 mL) subcut QWEEK finasteride 5 mg PO DAILY 90 days lancets As directed metformin 500 mg PO BID 90 days sitagliptin phosphate (Januvia) 100 mg PO DAILY Tobacco use date assessed: 04/30/23 Fall risk assessment: 2 + Falls in past year Last assessed Fall Risk: 04/30/23 Dental Screening Dental Screen Date: 04/30/23 Did you have a dental visit in the last 12 months?: Yes Did you have a dental problem in the last 6 months where you did not have access to dental care?: No Was dental information given to patient?: Patient has dentist HPI 3 month f/u (pushed out) HPI Details 72 yr male presents to the office to discuss her chronic medical conditions. He is accompanied by her daughter. Pt is feeling better and is compliant with medications. Daughter would like to get social service to help with his home situation. He is not cooking and making poor choices with diet. Does not exercise. Continues to see the urologist. COUNTS INCLUDE 234 BEDS AT THE [facility] Medical History Bladder cancer Brain tumor Cataract Dementia Diabetes mellitus Diverticulosis Surgical History History of bladder surgery History of total right knee replacement Hx of colonoscopy Hx of tonsillectomy Family History Other Substance use disorder Social History Housing: Apartment Are you a primary field care advocate to a significant other at home: No Do you presently have visiting nurse or other home services: Yes (PHOTOGRAPH PRINTER 2x week, 4 supportive adult children) Alcohol intake: current Alcohol intake frequency: a few times a week Alcohol type: beer Patient Tobacco Use Status: Never used Tobacco e-Cigarette/Vaping Use: Never Used Second Hand Smoke Exposure: No service: No Current occupational status: retired Cognitive needs: Yes (cane) Hearing needs: No Vision needs: Yes (glaases) Questionnaire Thrive Questionnaire Date Thrive assessed: 12/18/22 ELLA-7 AMB Questionnaire ELLA-7 Date ELLA - 7 assessed: 12/18/22 Source: Developed by Drs. Elpidio Dubon, Ivanna Johnson, Jim Villafuerte and colleagues, with an educational edel from [employer]. Physical exam (Primary Care) Vital Signs: Last Vital Signs Pulse 83 04/30/23 15:13 BP 124/72 04/30/23 15:13 Pulse Ox 98 04/30/23 15:13 Oxygen Delivery Method Room Air 04/30/23 15:13 BMI result Body Mass Index 35.3 Tobacco/Smoking Status: Tobacco use Status Tobacco use date assessed 04/30/23 04/30/23 15:19 Patient Tobacco Use Status Never used Tobacco 04/30/23 15:19 e-Cigarette/Vaping Use Never Used 04/30/23 15:19 Thrive Assessment: Date of Thrive Assessment Date Thrive assessed 12/18/22 04/30/23 15:19 Const General: cooperative, healthy appearing and comfortable HENMT Head: Yes normal to inspection and Yes atraumatic Eyes General: appearance normal, both eyes and all related structures Neck Neck: Yes normal visual inspection and Yes full ROM Chest Chest palpation & inspection: normal inspection of the chest Resp Effort & Inspection: normal respiratory effort Auscultation: clear to auscultation bilaterally Cardio Jugular venous distension: no JVD Palpation: normal PMI Rate: regular rate Heart sounds: S1 normal heart sound present and S2 normal heart sound present GI Palpation (GI): Soft to palpation and No hepatosplenomegaly present Extrem General: Yes normal to inspection and Yes full ROM Assessment and Plan Assessment & Plan (1) Diabetes mellitus: Code(s): E11.9 - Type 2 diabetes mellitus without complications Plan: Trulicity added to the regimen. Patient will be contacted by social services manager. Medications: New dulaglutide (Trulicity) 0.75 mg (0.5 mL) subcut QWEEK 2 mL 1RF Coding Level of Care Code Est Pt Level 3 (57067) Diagnoses Diabetes mellitus E11.9
[2023-04-30 15:13] VITALS: BP 124/72; PULSE 83; O2SAT 98; BMI 35.3
== END 2023-04-30 15:46 | disposition home or self-care (01) ==
PROVIDERS: PCP Internal Medicine; Visit Provider Internal Medicine
DX: E11.9 Type 2 diabetes mellitus without complications (principal)
CPT/HCPCS: 99213

== ENCOUNTER 2023-07-21 21:13 | Emergency (ER) | payer MEDICARE, OTHER, SELFPAY ==
--- NOTE | ~2023-07-21 | CT_ITS ---
EXAMINATION: CT HEAD WITHOUT CONTRAST CLINICAL INFORMATION: Unwitnessed fall. COMPARISON: Brain MRI from 11/13/2022 TECHNIQUE: Contiguous axial imaging was performed from the skull base to vertex without intravenous administration of contrast. This CT examination was performed using dose optimization techniques as appropriate, variously including the following: *Automated exposure control *Adjustment of mA and/or kV according to patient size (this includes techniques or standardized protocols for targeted exams where dose is matched to indication/reason for exam; i.e. extremities or head) *Use of iterative reconstruction technique DLP: 925 mGy-cm FINDINGS: Again noted is a complex mixed cystic-solid sellar/suprasellar mass measuring up to approximately 6 cm maximum dimension and not appreciably changed in size compared to 11/13/2022. Please refer to the dictated report of the brain MRI from 11/13/2022 regarding details of the lesion. Lesion is encasing some of the regional vessels and is encroaching on the prepontine cistern, as seen on 11/13/2022. There is no evidence of acute intracranial hemorrhage or extra-axial surface collection. The mass chronically effaces the third ventricle. There is chronic ventriculomegaly with a similar degree of dilatation of the third and lateral ventricles compared to 11/13/2022. The laurent-white matter differentiation is maintained. No evidence of an acute major vascular territory infarction. No acute findings within the posterior fossa. The cerebellar tonsils are in normal position. There is a mucus retention cyst of the right maxillary sinus. Mild amount mucus is seen along the posteroinferior wall of the left maxillary sinus. No air-fluid levels within paranasal sinuses. The mastoid air cells are well aerated. The orbits, globes and temporomandibular joints are unremarkable. CT/CT head/brain wo IV con IMPRESSION: No intracranial hemorrhage or other acute intracranial pathology compared to the brain MRI from 11/13/2022. Again noted is a large mixed cystic and solid sellar/suprasellar mass measuring up to 6 cm and causing encasement of the nearby vessels and encroaching on the prepontine cistern, as seen on 11/13/2022. There is persistent lateral and third ventriculomegaly.
--- NOTE | ~2023-07-21 | XR_ITS ---
EXAMINATION: XR ABDOMEN KUB CLINICAL INDICATION: Vomiting COMPARISON: CT abdomen/pelvis dated 11/03/2022 TECHNIQUE: AP view of the abdomen. FINDINGS: The bowel gas pattern is normal with no evidence of ileus or obstruction. Stomach is moderately distended. No unusual soft tissue calcifications are noted. The bones are unremarkable. XR/XR KUB IMPRESSION: * No evidence of bowel obstruction. * Moderate gastric distention.
[2023-07-21 21:18] VITALS: BP 140/70; PULSE 102; O2SAT 96
[2023-07-21 22:08] VITALS: BP 147/80; PULSE 89; RESP 18; TEMP 37.5; O2SAT 98; BMI 33.1
[2023-07-21 22:40] LABS: MANUAL DIFF FLAG NO
--- NOTE | 2023-07-21 22:41 | MHC.EDTECH ---
Labs,Covid and flu obtained and sent to lab, patient placed back in the waiting area.
[2023-07-21 22:44] LABS: Basophils Absolute Auto 0.1 X10*3/uL (0.0-0.2); Basophils Percent Auto 0.6 % (0-2); Eosinophils Absolute Auto 0.3 X10*3/uL (0.0-0.4); Eosinophils Percent Auto 1.9 % (0-4); Hematocrit 50.7 % (42.0-52.0); Hemoglobin 17.3 g/dl (14.0-18.0); Imm Gran Abs Auto 0.13 X10*3/uL (0.00-0.03); Imm Gran Pct Auto 0.9 % (0.0-0.4); Lymphocytes Absolute Auto 1.8 X10*3/uL (1.2-4.9); Lymphocytes Percent Auto 12.2 % (20-40); Mean Corpuscular HGB Conc 34.1 g/dl (31.0-36.0); Mean Corpuscular Hemoglobin 30.6 pg (27.0-33.0); Mean Corpuscular Volume 89.7 fL (80.0-98.0); Mean Platelet Volume 9.6 fL (9.4-12.4); Monocytes Absolute Auto 0.9 X10*3/uL (0.1-1.2); Monocytes Percent Auto 6.4 % (2-11); Neutrophils Absolute Auto 11.2 x10*3/uL (2.0-8.3); Platelet Count 269 X10*3/uL (160-400); Red Blood Count 5.65 X10*6/uL (4.60-5.80); Red Cell Distribution Width 12.9 % (11.0-16.0); White Blood Count 14.4 X10*3/uL (4.8-10.8)
[2023-07-21 22:56] LABS: Alanine Aminotransferase 28 U/L (0-40); Albumin Level 4.2 g/dL (3.5-5.0); Alkaline Phosphatase 81 U/L (39-117); Anion Gap 17 (12-20); Aspartate Amino Transferase 20 U/L (5-37); Blood Urea Nitrogen 21 mg/dL (9-16); Calcium 11.2 mg/dL (8.4-10.2); Carbon Dioxide 17 mmol/L (22-29); Chloride 108 mmol/L (96-108); Creatinine Clr Calc Pharmacy 94.9; Estimated Glomerular Filt Rate > 60; Glucose Random 214 mg/dL (60-115); Potassium 4.1 mmol/L (3.3-5.1); Sodium 138 mmol/L (135-145); Total Protein 7.4 g/dL (6.5-8.0)
--- NOTE | 2023-07-22 01:04 | ED.FALL ---
HPI - Fall General Chief Complaint: Fall Stated Complaint: fall, no head injury,no thinners, Bi Lat knee pain Time Seen by Provider: 07/22/23 00:47 Source: patient and family (Daughter) Mode of arrival: ambulatory Limitations: no limitations History of Present Illness HPI Narrative: A 73-year-old male came in by ambulance for evaluation after fall at home. Patient lives alone independently at home had right knee surgery few years ago and been having left ankle problems patient was walking from the bedroom to the bathroom when his left ankle give out and twisted the left ankle causing the patient to fall, patient was able to get up then he fell again landing on his right knee, then managed to get up then he felt for the 3rd time and remained on the floor until EMS arrived. No head injury, no LOC, patient is known to have craniopharyngioma and a previous brain MRI patient today denies headache, blurry vision, or neck pain. Patient is sustaining a small contusion to the left hand and complaining of right knee pain and left ankle pain. History of 6 cm intracranial craniopharyngioma. Related Data Home Medications Medication Instructions Recorded Confirmed diaper,brief,adult,disposable 09/12/21 05/20/23 (Briefs, Adult-Extra Large) Previous Rx's Medication Instructions Recorded blood-glucose meter #1 ea 08/07/22 blood sugar diagnostic (FreeStyle #100 ea 09/18/22 Lite Strips) lancets #100 ea 09/18/22 sitagliptin phosphate 100 mg 100 mg PO DAILY #30 tabs 01/21/23 tablet (Januvia) finasteride 5 mg tablet 5 mg PO DAILY BPH 90 days #90 tabs 04/24/23 metformin 500 mg tablet 500 mg PO BID 90 days #180 tabs 06/23/23 dulaglutide 0.75 mg/0.5 mL 0.75 mg (0.5 mL) subcut QWEEK #2 mL 06/29/23 [facility] Allergies Allergy/AdvReac Type Severity Reaction Status Date / Time Seasonal Allergies Allergy Intermediate Sneezing, Verified 05/20/23 16:40 watery eyes Penicillins [PCN] Allergy Mild Rash Verified 05/20/23 16:40 Review of Systems Review of Systems: All other systems are reviewed and are negative Constitutional: Reports as per HPI and Reports no additional constitutional complaints Eyes: Reports as per HPI and Reports no additional eye complaints Reports system reviewed and no additional complaints, except as documented Cardiovascular: Reports as per HPI and Reports no additional cardiovascular complaints Respiratory: Reports as per HPI and Reports no additional respiratory complaints Gastrointestinal: Reports as per HPI and Reports no additional gastrointestinal complaints Genitourinary: Reports no additional female genitourinary complaints Musculoskeletal: Reports no additional musculoskeletal complaints Skin/Breast: Reports system reviewed and no additional complaints, except as docu Psychiatric: Reports no additional psychiatric complaints Endocrine: Reports no additional endocrine complaints Hematologic/Lymphatic: Reports no additional hematologic/lymphatic complaints Allergic/Immunologic: Reports no additional allergic/immunologic complaints Reports system reviewed and no additional complaints, except as documented and Reports Abnormal speech present [facility] Past Medical History Medical History Cataract Dementia Diabetes mellitus Diverticulosis Bladder cancer Brain tumor Surgical History History of total right knee replacement Hx of colonoscopy Hx of tonsillectomy History of bladder surgery Family History Family History Other Substance use disorder Social History Social History Housing: Apartment Are you a primary health care aide to a significant other at home: No Do you presently have visiting nurse or other home services: Yes ([employer] 2x week, 4 supportive adult children) Unable to assess alcohol history related to: Unknown Alcohol intake: current Alcohol intake frequency: a few times a week Alcohol type: beer Patient Tobacco Use Status: Never used Tobacco Smoked in Last 30 Days: No e-Cigarette/Vaping Use: Never Used Second Hand Smoke Exposure: No Use of substances other than those prescribed or required for medical reasons: No Advance Directives: No Advance Directives Information Provided: Yes service: No Current occupational status: retired Cognitive needs: Yes (cane) Hearing needs: No Vision needs: Yes (glaases) Physical Exam Vital Signs: Vital Signs: Last Vital Signs Temp 98.3 F 07/22/23 01:43 Pulse 85 07/22/23 01:43 Resp 18 07/22/23 01:43 BP 148/77 H 07/22/23 01:43 Pulse Ox 96 07/22/23 01:43 O2 Del Method Room Air 07/22/23 01:43 BMI result Body Mass Index 33.1 Vital signs have been reviewed and appear to be correct. Blood pressure elevated. Heart rate normal. Respiratory rate normal. Temperature normal. Oxygen saturation normal. Appearance: Alert. Oriented X3. No acute distress. Head: Normal external exam. Normocephalic. Atraumatic. No Buenrostro signs noted. No raccoon eyes noted Eyes: PERRLA. EOMI. Conjunctiva and sclera normal. Eyelids normal. ENT: TM's Normal. Pharynx normal. Uvula midline. Moist mucous membranes. No trismus noted. No drooling noted. No muffled voice noted. Neck: Normal inspection. Neck supple. FROM. No adenopathy. Thyroid Normal. No meningeal signs. No neck mass noted. CVS: Normal heart rate and rhythm. Heart sound normal. No murmurs noted. Pulses normal throughout. Respiratory: No respiratory distress. Painless inspiration. Breath sounds normal. No wheezes/rales/rhonchi noted. Chest nontender. No accessory muscle usage noted or decreased air movement noted. Abdomen: Soft and nontender. Bowel sounds normal in all 4 quadrants. No distention noted. No organomegaly noted. No visible injury noted. Back: No CVA tenderness. Full range of motion noted. Skin: Skin warm and dry. Normal skin color. Normal skin turgor. No rashes/lesions/lacerations noted. Extremities: Right knee: A scar for old right knee surgery, no deformity, no joint effusion. Left ankle; no swelling, no deformity, tenderness over medial malleolus, no tenderness or step-off over the lateral malleolus. Neuro: Oriented X 3. Cranial nerve exam: II-XII are grossly intact No motor deficit. No sensory deficit. Reflexes normal. Course Reevaluation(s) Reevaluation #1: S/p a mechanical fall with left ankle contusion questionable x-ray findings for acute fracture, CT of the ankle ruled out fracture, right knee x-ray is negative for fracture, will keep the patient for physician observation for case management and PT evaluation for possible short-term rehab placement. Time: 01:12 Medical Decision Making Differential Diagnosis Differential Diagnoses: The differential diagnosis associated with the presentation includes (Left ankle fracture, a right knee fracture, electrolyte abnormality, severe anemia.) Admission/Observation Consideration of admission/observation: Escalation of care including admission/observation considered Lab Data MDM Lab Attestation statement: I reviewed the patient's lab results. 07/21/23 22:36 07/21/23 22:36 Labs: Lab Results 07/21/23 Range/Units 22:36 WBC 14.4 H (4.8-10.8) X10*3/uL RBC 5.65 (4.60-5.80) X10*6/uL Hgb 17.3 (14.0-18.0) g/dl Hct 50.7 (42.0-52.0) % MCV 89.7 (80.0-98.0) fL MCH 30.6 (27.0-33.0) pg MCHC 34.1 (31.0-36.0) g/dl RDW 12.9 (11.0-16.0) % Plt Count 269 (160-400) X10*3/uL MPV 9.6 (9.4-12.4) fL Immature Gran % (Auto) 0.9 H (0.0-0.4) % Neut % (Auto) 78.0 H (45-73) % Lymph % (Auto) 12.2 L (20-40) % [place] % (Auto) 6.4 (2-11) % Eos % (Auto) 1.9 (0-4) % Baso % (Auto) 0.6 (0-2) % Lymph # (Auto) 1.8 (1.2-4.9) X10*3/uL [place] # (Auto) 0.9 (0.1-1.2) X10*3/uL Eos # (Auto) 0.3 (0.0-0.4) X10*3/uL Baso # (Auto) 0.1 (0.0-0.2) X10*3/uL Abs Immat Gran (auto) 0.13 H (0.00-0.03) X10*3/uL Absolute Neuts (auto) 11.2 H (2.0-8.3) x10*3/uL Absolute Nucleated RBC 0.000 (0.0-0.012) X10*3/uL Nucleated RBC % (auto) 0.0 (0.0-0.2) /100WBC Sodium 138 (135-145) mmol/L Potassium 4.1 (3.3-5.1) mmol/L Chloride 108 (96-108) mmol/L Carbon Dioxide 17 L (22-29) mmol/L Anion Gap 17 (12-20) BUN 21 H (9-16) mg/dL Creatinine 0.74 (0.5-1.4) mg/dL Estim Creat Clear Calc 94.9 Estimated GFR > 60 Random Glucose 214 H (60-115) mg/dL Calcium 11.2 H (8.4-10.2) mg/dL Total Bilirubin 1.0 (0.0-1.0) mg/dL AST 20 (5-37) U/L ALT 28 (0-40) U/L Alkaline Phosphatase 81 (39-117) U/L Total Protein 7.4 (6.5-8.0) g/dL Albumin 4.2 (3.5-5.0) g/dL COVID-19 (DARLENE) Negative (Negative) COVID-19 Clin Com See Note Influenza Type A (JUVENTINO) Negative (Negative) Influenza Type B (JUVENTINO) Negative (Negative) Influenza A & B Note See Note Independent Interpretation I performed an independent interpretation of an: Plain X-Ray (Right knee/left ankle:1. No evidence of an acute traumatic osseous injury involving the knee. 2. Question of a nondisplaced fracture of the lateral malleolus-correlate with point tenderness on physical exam. Evidence of remote trauma medial malleolus. ) Radiology Impression Discussion of test interpretation with radiology: I have reviewed the radiologist's reading. Discharge Plan Discharge Clinical Impression: Fall Qualifiers: Encounter type: initial encounter Qualified Code(s): W19.XXXA - Unspecified fall, initial encounter Contusion of ankle, left Qualifiers: Encounter type: initial encounter Qualified Code(s): S90.02XA - Contusion of left ankle, initial encounter Contusion of knee, right Qualifiers: Encounter type: initial encounter Qualified Code(s): S80.01XA - Contusion of right knee, initial encounter Patient Disposition: Still a Patient Prescriptions: No Action (DME) FreeStyle Lite Strips Strip See Rx Instructions .MEDSUPPLY Qty: 100 1RF Rx Instructions: Once a day (DME) lancets Misc See Rx Instructions .MEDSUPPLY Qty: 100 0RF Rx Instructions: As directed Januvia 100 mg tablet 100 mg PO DAILY Qty: 30 0RF metformin 500 mg tablet 500 mg PO BID 90 Days Qty: 180 0RF Trulicity 0.75 mg/0.5 mL pen injector 0.75 mg subcut QWEEK Qty: 2 1RF (DME) Briefs, Adult-Extra Large Misc See Rx Instructions .Route Rx Instructions: As directed (DME) blood-glucose meter Kit See Rx Instructions miscellaneous .MEDSUPPLY Qty: 1 0RF Rx Instructions: As directed finasteride 5 mg tablet 5 mg PO DAILY 90 Days Qty: 90 1RF Rx Instructions: Daily tablet
[2023-07-22 01:43] VITALS: BP 148/77; PULSE 85; RESP 18; TEMP 36.8; O2SAT 96
[2023-07-22 02:18] VITALS: BP 132/75; PULSE 86; RESP 17; TEMP 36.8; O2SAT 96
[2023-07-22 06:55] VITALS: BP 157/84; PULSE 87; RESP 17; TEMP 36.9; O2SAT 95
--- NOTE | 2023-07-22 07:22 | PHA.MEDREC ---
Pharmacy Consult ? Medication Reconciliation Pharmacy has completed the medication reconciliation. pharmacy has reviewed med rec done by nursing.
--- NOTE | 2023-07-22 08:44 | PC.NURSE ---
Pt currently yelling to tell Simin to get the hell here , pt redirected to being in the hospital and of date and time, PT at bedside with patient this morning. Currently pt daughter at bedside. Awaiting CM consult
--- NOTE | 2023-07-22 09:39 | PC.NURSE ---
Pharmacy called at this time to alert we needed pt Januvia medication as it was not loaded in our Pyxis awaiting for it to be brought down.
--- NOTE | 2023-07-22 12:30 | MHC.CM.ED ---
Addendum entered by Juliana Ni 07/22/23 15:12: [facility], [facility]. This information was discussed with patient and daughter Zuly. They will accept the bed at [facility]. [facility] has been notified so they can reach out to Zuly about financials. Original Note: Received case management consult overnight. Patient came to the ER due to a fall with bilat knee pain. Originally ankle xray was not sure if there was a non-displaced fracture. Ankle CT was performed. No fracture was seen. Patient still having pain and diff ambulating. Physical therapy eval completed. Rehab is recommended. Patient has not been inpatient in any facility in the past 30 days. Referral made to all 3 acute rehab facilities. No bed offers made at this time. Met with patient and daughter, Zuly. 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 PCP verified. Zuly has a copy of patient's HCP. Patient received 2 Pfizer vaccines. Patient and Zuly are concerned about pateint returning home. Medicare regulations regarding inpatient level of care and custodial facility payment explained. Patient currently has [employer]. Zuly and Roxi have already submitted a frail/elder [employer] application. Zuly will provide a copy of this application to . [facility] at this time to see if any facilities are able to offer a respit bed. Continue to monitor for d/c needs.
[2023-07-22 15:38] VITALS: BP 126/96; PULSE 94; RESP 16; TEMP 36.3; O2SAT 97
--- NOTE | 2023-07-22 15:40 | MHC.EDTECH ---
THIS PCT ASSUMED CARE OF PATIENT AT 1500 ,VITALS SIGN TAKEN ,AND PATIENT BELONINGS LIST DONE ,PT RESTING QUIETLY IN BED .
[2023-07-22] MEDS: metFORMIN HCl 500 MG TABLET PO (20:30)
--- NOTE | 2023-07-22 20:32 | PC.NURSE ---
Pt attempted to get out of bed. Redirected back into bed. Pt medicated per mar. Pt states I cant stay here any longer Pt remains calm, cooperative and redirectable. Plan of care ongoing.
[2023-07-22 21:08] VITALS: BP 137/87; PULSE 106; RESP 18; TEMP 36.1; O2SAT 95
[2023-07-22] MEDS: LORazepam 0.5 MG TABLET PO (22:51)
--- NOTE | 2023-07-22 23:23 | PC.NURSE ---
Pt went to the bathroom in the bed. Pt given a bed bath. Tatyana care provided, clean bedding and gown placed. Pt repositioned in bed for comfort. Plan of care ongoing.
--- NOTE | 2023-07-23 00:50 | PC.NURSE ---
Pt cleaned. Pt bedding changed. Pt changed into clean gown Pt [place] cath replaced. Pt repositioned in bed for comfort. Plan of care ongoing.
[2023-07-23] MEDS: Ondansetron ODT 4 MG TAB.RAPDIS TRANSLINGU (01:36)
--- NOTE | 2023-07-23 01:38 | PC.NURSE ---
Pt medicated per dec. Pt bedding changed. Pt changed into clean gown. Dr Dunbar made aware pt vomiting. Plan of care ongoing.
--- NOTE | 2023-07-23 03:41 | PC.NURSE ---
Dr Gilbert made aware pt vomiting again.
[2023-07-23 04:48] LABS: Glucose, Whole Blood 263 mg/dL (60-115)
--- NOTE | 2023-07-23 04:48 | PC.NURSE ---
POC [id number] Dr. Gilbert notified. Vitals stable. Plan of care ongoing.
[2023-07-23 04:49] VITALS: BP 111/76; PULSE 100; RESP 18; TEMP 35.9; O2SAT 93
[2023-07-23 07:27] VITALS: BP 146/91; PULSE 110; RESP 18; TEMP 36.4; O2SAT 94
[2023-07-23] MEDS: Finasteride 5 MG TABLET PO (08:06)
[2023-07-23] MEDS: metFORMIN HCl 500 MG TABLET PO (08:06)
[2023-07-23] MEDS: SITagliptin Phosphate 100 MG TABLET PO (08:06)
[2023-07-23 09:26] LABS: Appearance Urine Clear; Color Urine Yellow; Glucose Urine UA >=1000 mg/dL (Negative); Leukocyte Esterase Urine Negative (Negative); Nitrite Urine Negative (Negative); PH 6.5 (5.0-9.0); Specific Gravity - Urine >= 1.030 (1.005-1.025); UMIC TRIGGER UACC YES; Urine Blood Negative (Negative); Urine Ketones Trace mg/dL (Negative); Urine Protein 30 (1+) mg/dL (Neg-Trace)
[2023-07-23 09:31] LABS: Bacteria Urine None Seen (None Seen); Hyaline Casts Urine 0-2 /LPF (0-2); RBC Urine 0-2 /HPF (0-2); Squamous Epithelial Cell Urine 0-2 /HPF (0-2); WBC Urine 0-5 /HPF (0-5)
--- NOTE | 2023-07-23 10:33 | MHC.CM.ED ---
Patient remains in Er overflow. Copy of HCP emailed by patient's daughter, Tania. Sent to [facility]. Patient can leave at 1pm. Vandana PURVIS booked. Med nec with chart. Patient, daughter Chloe Diane RN and Flor MOJICA aware. Continue to monitor for d/c needs.
--- NOTE | 2023-07-23 11:44 | PC.NURSE ---
pt brought to CT by transportation refrigeration technician.
--- NOTE | 2023-07-23 12:05 | PC.NURSE ---
pt back from CT scan, safety precautions remain in place, call paz within reach. Pt assisted/setup with lunch. offering no complaints
[2023-07-23 14:18] VITALS: BP 147/92; PULSE 102; RESP 18; TEMP 36.7; O2SAT 92
--- NOTE | 2023-07-23 14:58 | PC.NURSE ---
report called to receiving facility, printing machine mechanic requested this RN calls back to try again.
== END 2023-07-23 16:12 | disposition skilled nursing facility (03) ==
PROVIDERS: Student in an Organized Health Care Education/Training Program; Emergency Provider Emergency Medicine; PCP Internal Medicine
DX: S80.01XA Contusion of right knee, initial encounter (principal); S90.02XA Contusion of left ankle, initial encounter
CPT/HCPCS: 70450; 73562; 73610; 73700; 74018; 80053; 81001; 82947; 85025; 87502; 87635; 97162; 99285

== ENCOUNTER 2023-07-23 16:47 | Inpatient (IN) | payer MEDICARE, OTHER, SELFPAY ==
--- NOTE | ~2023-07-23 | XR_ITS ---
EXAMINATION: XR CHEST CLINICAL INFORMATION: Hypoxia. COMPARISON: None available. TECHNIQUE: Frontal view of the chest was obtained. FINDINGS: The lung volumes are low. The cardiomediastinal silhouette is within normal limits. There is a left lung base/retrocardiac opacity. The right lung is clear. The bony structures and soft tissues are unremarkable. XR/XR chest 1V IMPRESSION: Low lung volume slightly limits evaluation. There appears to be a left lung base/retrocardiac opacity. Consider infiltrate and/or atelectasis.
--- NOTE | ~2023-07-23 | CT_ITS ---
EXAMINATION: CT ABDOMEN AND PELVIS WITHOUT CONTRAST CLINICAL INFORMATION: Projectile emesis, abdominal pain and gastric distention. COMPARISON: None available. TECHNIQUE: Multidetector volumetric imaging was performed from the superior aspect of the liver through the pubic symphysis. Sagittal and coronal reformatted images were obtained on the technologist's workstation. This CT examination was performed using dose optimization techniques as appropriate, variously including the following: *Automated exposure control *Adjustment of mA and/or kV according to patient size (this includes techniques or standardized protocols for targeted exams where dose is matched to indication/reason for exam; i.e. extremities or head) *Use of iterative reconstruction technique DLP: 927 mGy-cm FINDINGS: LUNG BASES: There is a patchy opacity left lung base likely consolidation/atelectasis. Minimal similar findings are seen in the right lung base. LIVER, GALLBLADDER, AND BILIARY TREE: The liver is normal in size, shape, and attenuation. No focal hepatic lesion or biliary ductal dilatation is present. The gallbladder is unremarkable with no evidence of radiopaque gallstones, gallbladder wall thickening, or obvious pericholecystic inflammatory changes. PANCREAS: Unremarkable. SPLEEN: Unremarkable. ADRENAL GLANDS: Unremarkable. KIDNEYS AND URETERS: The kidneys are normal in size, shape, and attenuation. No hydronephrosis, hydroureter, or calculi seen. There is mild bilateral perinephric stranding. BLADDER: Unremarkable. GASTROINTESTINAL TRACT: There is scattered stool, gas and diverticuli seen throughout the colon without diverticulitis or distention. The small bowel loops are normal caliber. There is mild gastric distention with fluid but no obstructive process seen. Appendix is normal caliber. ABDOMINAL WALL: Prominent bilateral inguinal canal containing fat is noted LYMPHOVASCULAR STRUCTURES: Unremarkable. PELVIC VISCERA: The prostate gland is mildly enlarged with central gland calcification. OSSEOUS STRUCTURES: There are degenerative disc changes with ventral and posterior spondylosis. No aggressive lytic or sclerotic process seen. CT/CT abdomen pelvis wo IV con IMPRESSION: 1. Colonic diverticulosis without there are colitis. 2. Mild constipation.. Fleischner guidelines were followed.
--- NOTE | 2023-07-23 16:53 | ED_ITS ---
HPI - Nausea/Vomiting/Diarrhea General Chief complaint: General Medical Stated complaint: projectile vomiting. 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 Per EMS on their arrival to SNF patient had episode of projectile emesis and thus was instructed to return to the ED. patient admits to mild abdominal discomfort and intermittent SOB. History limited due to patient's baseline dementia. MD elicited complaint: vomiting and abdominal pain Related Data Home Medications Medication Instructions Recorded Confirmed diaper,brief,adult,disposable 09/12/21 05/20/23 (Briefs, Adult-Extra Large) Previous Rx's Medication Instructions Recorded blood-glucose meter #1 ea 08/07/22 blood sugar diagnostic (FreeStyle #100 ea 09/18/22 Lite Strips) lancets #100 ea 09/18/22 sitagliptin phosphate 100 mg 100 mg PO DAILY #30 tabs 01/21/23 tablet (Januvia) finasteride 5 mg tablet 5 mg PO DAILY BPH 90 days #90 tabs 04/24/23 metformin 500 mg tablet 500 mg PO BID 90 days #180 tabs 06/23/23 dulaglutide 0.75 mg/0.5 mL 0.75 mg (0.5 mL) subcut QWEEK #2 mL 06/29/23 subcutaneous pen injector (Trulicity) Allergies Allergy/AdvReac Type Severity Reaction Status Date / Time Seasonal Allergies Allergy Intermediate Sneezing, Verified 05/20/23 16:40 watery eyes Penicillins [PCN] Allergy Mild Rash Verified 05/20/23 16:40 Review of Systems 2 Review of Systems: ROS limited due to patient's baseline dementia Yes all other systems are reviewed and are negative Constitutional: Constitutional: Reports as per [facility] Past Medical History Attestation statement: The following information was validated with the patient. Source: old records reviewed Medical History Cataract Dementia Diabetes mellitus Diverticulosis Bladder cancer Brain tumor Surgical History History of total right knee replacement Hx of colonoscopy Hx of tonsillectomy History of bladder surgery Family History Family History Other Substance use disorder Social History Social History Housing: Apartment Are you a primary youth care worker to a significant other at home: No Do you presently have visiting nurse or other home services: Yes ([employer] 2x week, 4 supportive adult children) Unable to assess alcohol history related to: Unknown Alcohol intake: current Alcohol intake frequency: a few times a week Alcohol type: beer Patient Tobacco Use Status: Never used Tobacco e-Cigarette/Vaping Use: Never Used Second Hand Smoke Exposure: No Use of substances other than those prescribed or required for medical reasons: No Advance Directives: No Advance Directives Information Provided: No service: No Current occupational status: retired Cognitive needs: Yes (cane) Hearing needs: No Vision needs: Yes (glaases) Physical Exam 2 Vital Signs: Vital Signs: Last Vital Signs Temp 98 F 07/23/23 19:13 Pulse 107 H 07/23/23 19:13 Resp 20 07/23/23 19:13 BP 136/89 07/23/23 19:13 Pulse Ox 95 07/23/23 19:13 O2 Del Method Nasal Cannula 07/23/23 19:13 O2 Flow Rate 3 07/23/23 19:13 Oxygen Flow Rate 2 07/23/23 17:07 BMI result Body Mass Index 29.1 Const: General: cooperative, no acute distress, alert and awake L imitations: no limitations HEENT: Head: Yes normal to inspection and Yes atraumatic Ears: hearing grossly normal bilaterally General nose exam: Normal external nose present Face and sinus: Yes normal facial exam Eyes: General: appearance normal, both eyes and all related structures EOM: EOMs intact bilaterally Neck: Neck: Yes normal visual inspection and Yes no meningeal signs Resp: Effort & Inspection: normal respiratory effort and no respiratory distress Auscultation: diminished lung sounds diffuse Cardio: Rate: regular rate and tachycardic Heart sounds: S1 normal heart sound present and S2 normal heart sound present GI: Inspection: Yes normal to inspection Palpation (GI): Soft to palpation, nontender, no guarding and not rigid Skin: Rashes: no rashes Wounds: no wounds Neuro: General: tone normal, moves all extremities and no meningeal signs C ranial nerves: Yes CN's II-XII intact bilaterally Extrem: General: Yes normal to inspection Course Course Course Narrative: -- leukocytosis of 14.6. BUN chronically elevated. T and D bili mildly elevated. UA not infected XR chest 1V IMPRESSION: Low lung volume slightly limits evaluation. There appears to be a left lung base/retrocardiac opacity. Consider infiltrate and/or atelectasis. 2128--CT abdomen pelvis wo IV con IMPRESSION: 1. Colonic diverticulosis without there are colitis. 2. Mild constipation.. Fleischner guidelines were followed. >> plan to admit for further management. Medications Administered Discontinued Medications Generic Name Dose Route Start Last Admin Trade Name Freq PRN Reason Stop Dose Admin Famotidine 20 mg 07/23/23 17:12 07/23/23 17:56 Famotidine/Pf 20 Mg/2 Ml Vial IVPUSH 07/23/23 17:13 20 mg ONCE ONE Administration Cefepime HCl 2 gm/ Sodium 50 mls @ 100 mls/hr 07/23/23 17:15 07/23/23 18:59 Chloride IV 07/23/23 17:44 Infused ONCE ONE Infusion Ondansetron HCl 4 mg 07/23/23 17:12 07/23/23 17:56 Ondansetron Hcl 4 Mg/2 Ml Vial IVPUSH 07/23/23 17:13 4 mg ONCE ONE Administration Medical Decision Making Medical Decision Making [facility] Narrative: 73-year-old male with a past medical history of dementia, diabetes, diverticulosis, bladder CA, known intracranial craniopharyngioma, presenting to the ED the EMS s/p episode of projectile emesis when arrived to SNF s/p discharged from our facility. On exam patient with baseline dementia, tachycardic, hypoxic to 89% on RA, diminished lung sounds throughout, abdomen soft/nontender. Concern for aspiration vs SBO vs diverticulitis vs PNA. rule out infectious and metabolic etiologies. low suspicion for severe sepsis at this time Plan: Labs, UA, CXR, CT AP, blood cultures/lactic, empiric IV antibiotics, admission Please refer to course for remaining clinical decision making, interpretation of labs/imaging results, and discussions with consultants and/or family members. Differential Diagnosis Differential Diagnoses: The differential diagnosis associated with the presentation includes As above Admission/Observation Consideration of admission/observation: Escalation of care including admission/observation considered Consult Healthcare Provider Management of the patient was discussed with: Hospitalist Lab Data MDM Lab Attestation statement: I reviewed the patient's lab results. 07/23/23 17:36 07/23/23 17:36 Labs: Lab Results 07/23/23 07/23/23 Range/Units 17:36 18:04 WBC 14.6 H (4.8-10.8) X10*3/uL RBC 5.61 (4.60-5.80) X10*6/uL Hgb 17.3 (14.0-18.0) g/dl Hct 50.1 (42.0-52.0) % MCV 89.3 (80.0-98.0) fL MCH 30.8 (27.0-33.0) pg MCHC 34.5 (31.0-36.0) g/dl RDW 13.1 (11.0-16.0) % Plt Count 278 (160-400) X10*3/uL MPV 9.5 (9.4-12.4) fL Immature Gran % (Auto) 0.5 H (0.0-0.4) % Neut % (Auto) 85.2 H (45-73) % Lymph % (Auto) 8.0 L (20-40) % Rose[place] % (Auto) 5.8 (2-11) % Eos % (Auto) 0.2 (0-4) % Baso % (Auto) 0.3 (0-2) % Lymph # (Auto) 1.2 (1.2-4.9) X10*3/uL [place] # (Auto) 0.9 (0.1-1.2) X10*3/uL Eos # (Auto) 0.0 (0.0-0.4) X10*3/uL Baso # (Auto) 0.0 (0.0-0.2) X10*3/uL Abs Immat Gran (auto) 0.08 H (0.00-0.03) X10*3/uL Absolute Neuts (auto) 12.4 H (2.0-8.3) x10*3/uL Absolute Nucleated RBC 0.000 (0.0-0.012) X10*3/uL Nucleated RBC % (auto) 0.0 (0.0-0.2) /100WBC Sodium 139 (135-145) mmol/L Potassium 4.0 (3.3-5.1) mmol/L Chloride 103 (96-108) mmol/L Carbon Dioxide 24 (22-29) mmol/L Anion Gap 16 (12-20) BUN 22 H (9-16) mg/dL Creatinine 1.09 (0.5-1.4) mg/dL Estim Creat Clear Calc 71.9 Estimated GFR > 60 Random Glucose 336 H (60-115) mg/dL Lactic Acid 1.5 (0.5-2.0) mmol/L Calcium 11.9 H D (8.4-10.2) mg/dL Magnesium 2.4 (1.6-2.6) mg/dL Total Bilirubin 2.3 H (0.0-1.0) mg/dL Direct Bilirubin 0.6 H (0.0-0.5) mg/dL AST 12 (5-37) U/L ALT 19 (0-40) U/L Alkaline Phosphatase 96 (39-117) U/L Troponin I High Sens 6.9 (<3.5-35.0) ng/L Total Protein 7.5 (6.5-8.0) g/dL Albumin 4.1 (3.5-5.0) g/dL Lipase 17 (8-78) U/L Urine Color Yellow Urine Appearance Clear Urine pH 7.0 (5.0-9.0) Ur Specific Am[place] 1.010 (1.005-1.025) Urine Protein 30 (1+) H (Neg-Trace) mg/dL Urine Glucose (UA) 500 H (Negative) mg/dL Urine Ketones 15 (Negative) mg/dL Urine Blood Negative (Negative) Urine Nitrite Negative (Negative) Ur Leukocyte Esterase Negative (Negative) Urine RBC 0-2 (0-2) /HPF Urine WBC 0-5 (0-5) /HPF Ur Squamous Epith Cells 0-2 (0-2) /HPF Urine Bacteria None Seen (None Seen) Hyaline Casts 0-2 (0-2) /LPF Independent Interpretation I performed an independent interpretation of an: EKG ( my interpretation EKG is normal sinus rhythm with marked sinus arrhythmia at a rate of 99. QRS 132. Left bundle branch block noted. No STEMI) Radiology Impression Discussion of test interpretation with radiology: I have reviewed the radiologist's reading. Independent Historian Clinical information obtained from an independent historian. History obtained from or confirmed by: EMS External Record Review External record reviewed: Inpatient record, Office record, Outpatient record, Prior outpatient labs, Prior outpatient radiology, Primary care record and Outside ED record Tests considered The following testing was considered but not selected: As above Prescription Management I considered prescription management with: Antibiotic Chronic Conditions Patient?s care impacted by: Diabetes and Other (dementia) Social Determinants Patient?s care significantly limited by Social Determinants of Health including: Problems related to primary support group Critical Care Time Critical Care Time Critical Care Time: Yes Total Critical Care Time: 40 Attestation: I have personally provided critical care time exclusive of time spent on separately billable procedures. Time includes review of lab data, radiology results, discussion with consultants, and monitoring for potential decompensation. Intervention performed as documented. Discharge Plan Discharge Clinical Impression: Aspiration pneumonia Prescriptions: No Action (DME) FreeStyle Lite Strips Strip See Rx Instructions .MEDSUPPLY Qty: 100 1RF Rx Instructions: Once a day (DME) lancets Misc See Rx Instructions .MEDSUPPLY Qty: 100 0RF Rx Instructions: As directed Januvia 100 mg tablet 100 mg PO DAILY Qty: 30 0RF metformin 500 mg tablet 500 mg PO BID 90 Days Qty: 180 0RF Trulicity 0.75 mg/0.5 mL pen injector 0.75 mg subcut QWEEK Qty: 2 1RF (DME) Briefs, Adult-Extra Large Misc See Rx Instructions .Route Rx Instructions: As directed (DME) blood-glucose meter Kit See Rx Instructions miscellaneous .MEDSUPPLY Qty: 1 0RF Rx Instructions: As directed finasteride 5 mg tablet 5 mg PO DAILY 90 Days Qty: 90 1RF Rx Instructions: Daily tablet
[2023-07-23 17:07] VITALS: BP 145/85; PULSE 107; RESP 20; TEMP 37.2; O2SAT 93; BMI 29.1
--- NOTE | 2023-07-23 17:26 | ECG_ITS ---
Test Reason : ASPERATION Blood Pressure : / mmHG Vent. Rate : 099 BPM Atrial Rate : 099 BPM P-R Int : 190 ms QRS Dur : 132 ms QT Int : 366 ms P-R-T Axes : 067 -45 111 degrees QTc Int : 469 ms Sinus rhythm with marked sinus arrhythmia Left axis deviation Left bundle branch block Abnormal ECG When compared with ECG of 12-MAY-2021 00:21, No significant change was found Referred By: Patricia Bernard Electronically Signed By:IFRAH BERNABE MD
[2023-07-23 17:35] VITALS: BP 142/88; PULSE 104; RESP 21; TEMP 37.2; O2SAT 94
[2023-07-23 17:55] LABS: MANUAL DIFF FLAG NO
[2023-07-23] MEDS: ondansetron HCL 4 MG/2 ML VIAL IVPUSH (17:56)
[2023-07-23] MEDS: Famotidine/PF 20 MG/2 ML VIAL IVPUSH (17:56)
[2023-07-23] MEDS: cefEPime HCl 2 GM in 0.9 % Sodium Chloride 50 ML IV (17:56)
[2023-07-23 17:57] LABS: Basophils Percent Auto 0.3 % (0-2); Eosinophils Percent Auto 0.2 % (0-4); Hematocrit 50.1 % (42.0-52.0); Hemoglobin 17.3 g/dl (14.0-18.0); Imm Gran Abs Auto 0.08 X10*3/uL (0.00-0.03); Imm Gran Pct Auto 0.5 % (0.0-0.4); Lymphocytes Absolute Auto 1.2 X10*3/uL (1.2-4.9); Mean Corpuscular HGB Conc 34.5 g/dl (31.0-36.0); Mean Corpuscular Hemoglobin 30.8 pg (27.0-33.0); Mean Corpuscular Volume 89.3 fL (80.0-98.0); Mean Platelet Volume 9.5 fL (9.4-12.4); Monocytes Absolute Auto 0.9 X10*3/uL (0.1-1.2); Monocytes Percent Auto 5.8 % (2-11); Neutrophils Absolute Auto 12.4 x10*3/uL (2.0-8.3); Neutrophils Percent Auto 85.2 % (45-73); Platelet Count 278 X10*3/uL (160-400); Red Blood Count 5.61 X10*6/uL (4.60-5.80); Red Cell Distribution Width 13.1 % (11.0-16.0); White Blood Count 14.6 X10*3/uL (4.8-10.8)
[2023-07-23 18:07] LABS: Lactic Acid 1.5 mmol/L (0.5-2.0)
[2023-07-23 18:13] LABS: Alanine Aminotransferase 19 U/L (0-40); Albumin Level 4.1 g/dL (3.5-5.0); Alkaline Phosphatase 96 U/L (39-117); Anion Gap 16 (12-20); Aspartate Amino Transferase 12 U/L (5-37); Bilirubin Direct 0.6 mg/dL (0.0-0.5); Bilirubin Total 2.3 mg/dL (0.0-1.0); Blood Urea Nitrogen 22 mg/dL (9-16); Calcium 11.9 mg/dL (8.4-10.2); Carbon Dioxide 24 mmol/L (22-29); Chloride 103 mmol/L (96-108); Creatinine Clr Calc Pharmacy 71.9; Estimated Glomerular Filt Rate > 60; Glucose Random 336 mg/dL (60-115); Lipase 17 U/L (8-78); Magnesium 2.4 mg/dL (1.6-2.6); Sodium 139 mmol/L (135-145); Total Protein 7.5 g/dL (6.5-8.0)
[2023-07-23 18:17] LABS: Troponin-I High Sensitivity 6.9 ng/L (<3.5-35.0)
--- NOTE | 2023-07-23 18:36 | PC.NURSE ---
pt was just discharged from overflow today, was going to [facility] for rehab post fall. Pt threw up on EMS stretcher upon arrival to [facility], pt may have aspirated some of the vomit. Pt is now satting high 80s without O2, requiring supplemental O2 to maintain above 91%. Pt is alert and oriented x2, knows his name and location, unsure of situation or time. Pt is calm and cooperative, has condom catheter that is draining appropriately at this time. This RN placed a 20g IV in RAC, abx completed
[2023-07-23 18:38] LABS: Appearance Urine Clear; Color Urine Yellow; Glucose Urine UA 500 mg/dL (Negative); Leukocyte Esterase Urine Negative (Negative); Nitrite Urine Negative (Negative); UMIC TRIGGER UACC YES; Urine Blood Negative (Negative); Urine Ketones 15 mg/dL (Negative); Urine Protein 30 (1+) mg/dL (Neg-Trace)
[2023-07-23 18:56] LABS: RBC Urine 0-2 /HPF (0-2); Squamous Epithelial Cell Urine 0-2 /HPF (0-2); WBC Urine 0-5 /HPF (0-5)
[2023-07-23 18:57] LABS: Bacteria Urine None Seen (None Seen); Hyaline Casts Urine 0-2 /LPF (0-2)
[2023-07-23 19:13] VITALS: BP 136/89; PULSE 107; RESP 20; TEMP 36.6; O2SAT 95
--- NOTE | 2023-07-23 21:34 | P.HPHOSP_ITS ---
History of Present Illness Date of Service: 07/23/23 Chief Complaint: Vomiting This is a 73-year-old male with pertinent history of mfh-vadebcs-csxdlhblm diabetes mellitus, BPH, unspecified dementia, history of bladder CA, intracranial craniopharyngioma who was brought to the emergency department for evaluation of hypoxemia. Patient is a poor historian due to dementia and does not know why he is in the hospital. He is only oriented to place at the time of my evaluation. As per EMS, patient had an episode of projectile emesis after which she was found to be hypoxemic in the 80s on room air. Unable to obtain review of systems. In the emergency department, patient was found to be septic and imaging with retrocardiac opacity. 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, 4 supportive adult children) Unable to assess alcohol history related to: Unknown Alcohol intake: current Alcohol intake frequency: a few times a week Alcohol type: beer Patient Tobacco Use Status: Never used Tobacco e-Cigarette/Vaping Use: Never Used Second Hand Smoke Exposure: No service: No Current occupational status: retired Cognitive needs: Yes (cane) Hearing needs: No Vision needs: Yes (glaases) Meds Allergies Allergy/AdvReac Type Severity Reaction Status Date / Time Seasonal Allergies Allergy Intermediate Sneezing, Verified 05/20/23 16:40 watery eyes Penicillins [PCN] Allergy Mild Rash Verified 05/20/23 16:40 Active Medications: Current Medications Acetaminophen (Acetaminophen 325 Mg Tablet) 650 mg PO Q6H PRN PRN Reason: Pain, Mild (Pain Scale 1-3) Acetaminophen (Acetaminophen Supp 650 Mg Supp.Rect) 650 mg CA Q6H PRN PRN Reason: Pain, Mild (Pain Scale 1-3) Enoxaparin Sodium (Enoxaparin Sodium 40 Mg/0.4 Ml Syringe) 40 mg SUBCUT Q24H [facility] Ampicillin Sodium/Sulbactam (Sodium 3 gm/ Sodium Chloride) 100 mls @ 200 mls/hr IV Q6H [facility] Melatonin (Melatonin 3 Mg Tablet) 6 mg PO BEDTIME PRN PRN Reason: Insomnia Ondansetron HCl (Ondansetron Hcl 4 Mg/2 Ml Vial) 4 mg IVPUSH Q8H PRN PRN Reason: Nausea and Vomiting Sodium Chloride (0.9 % Sodium Chloride Flush 3 Ml Syringe) 3 ml IVFLUSH QSHIFT [facility] Home Medications Medication Instructions Recorded Confirmed Last Taken Type diaper,brief,adult,disposable 09/12/21 05/20/23 Unknown History (Briefs, Adult-Extra Large) Physical Exam 2 Vital Signs and Narrative: Vital Signs: Last Vital Signs Temp 98 F 07/23/23 19:13 Pulse 107 H 07/23/23 19:13 Resp 20 07/23/23 19:13 BP 136/89 07/23/23 19:13 Pulse Ox 95 07/23/23 19:13 O2 Del Method Nasal Cannula 07/23/23 19:13 O2 Flow Rate 3 07/23/23 19:13 Oxygen Flow Rate 2 07/23/23 17:07 BMI result Body Mass Index 29.1 Elderly male lying in bed in no distress Neck supple, no JVD Tachycardia with regular rhythm, S1-S2 heard Left-sided crackles present Abdomen soft nontender, no guarding, no rigidity Patient is awake, alert and oriented to place, disoriented to time and person, follows commands and conversational Psych: Normal mood No pedal edema Results Labs 07/23/23 17:36 07/23/23 17:36 Labs: Laboratory Results - last 24 hr 07/23/23 07/23/23 17:36 18:04 MCV 89.3 MCH 30.8 MCHC 34.5 RDW 13.1 Plt Count 278 MPV 9.5 Immature Gran % (Auto) 0.5 H Neut % (Auto) 85.2 H Lymph % (Auto) 8.0 L [place] % (Auto) 5.8 Eos % (Auto) 0.2 Baso % (Auto) 0.3 Lymph # (Auto) 1.2 [place] # (Auto) 0.9 Eos # (Auto) 0.0 Baso # (Auto) 0.0 Abs Immat Gran (auto) 0.08 H Absolute Neuts (auto) 12.4 H Absolute Nucleated RBC 0.000 Nucleated RBC % (auto) 0.0 Anion Gap 16 Estim Creat Clear Calc 71.9 Estimated GFR > 60 Random Glucose 336 H Lactic Acid 1.5 Calcium 11.9 H D Magnesium 2.4 Total Bilirubin 2.3 H Direct Bilirubin 0.6 H AST 12 ALT 19 Alkaline Phosphatase 96 Total Protein 7.5 Albumin 4.1 Lipase 17 Urine Color Yellow Urine Appearance Clear Urine pH 7.0 Ur Specific [place]alier 1.010 Urine Protein 30 (1+) H Urine Glucose (UA) 500 H Urine Ketones 15 Urine Blood Negative Urine Nitrite Negative Ur Leukocyte Esterase Negative Urine RBC 0-2 Urine WBC 0-5 Ur Squamous Epith Cells 0-2 Urine Bacteria None Seen Hyaline Casts 0-2 Imaging Radiologist's Impressions: Impressions Chest X-Ray 07/23/23 18:22 IMPRESSION: Low lung volume slightly limits evaluation. There appears to be a left lung base/retrocardiac opacity. Consider infiltrate and/or atelectasis. Abdomen/Pelvis CT 07/23/23 19:49 IMPRESSION: 1. Colonic diverticulosis without there are colitis. 2. Mild constipation.. Fleischner guidelines were followed. Assessment and Plan (1) Aspiration pneumonia: Status: Acute (2) Hypoxia: Status: Acute Plan This is a 73-year-old male with pertinent history of rpp-flzxvpt-moqawjovg diabetes mellitus, BPH, unspecified dementia, history of bladder CA, intracranial craniopharyngioma who was brought to the emergency department for evaluation of hypoxemia. #. Acute hypoxemic respiratory failure and Sepsis due to aspiration pneumonia. Resuscitated with IV crystalloids. Lactic acid and blood culture obtained. Initiating empiric IV Unasyn. Will keep patient NPO. Speech consulted #. Projectile Vomiting. Supportive care. Imaging without acute abnormality. Obtaining CT head as patient with history of brain tumor #. Lfb-orutuxe-nsypzkxpf diabetes mellitus with hyperglycemia. Initiating basal plus insulin regimen #. BPH: On finasteride Med rec pending DVT prophylaxis: Lovenox Full code. Readdress code status with family in a.m. Admit as inpatient and will require two night minimum hospital stay for supplemental oxygen and IV antibiotics Time Spent With Patient Time: Total time managing care of this patient today ____ minutes. Quality Stroke Does the patient have a stroke diagnosis?: No VTE Prior VTE?: No VTE Risk Level:: Medical - moderate - high VTE Device Contraindication: Treatment Not Indicated VTE Drug Contraindication: N/A - Med Ordered
[2023-07-23 22:00] LABS: Glucose, Whole Blood 267 mg/dL (60-115)
[2023-07-23] MEDS: Insulin Lispro 100 UNIT/ML 3 ML VIAL SUBCUT (22:04)
[2023-07-23] MEDS: 0.9 % Sodium Chloride 1,000 ML 999 ML IV (22:05)
[2023-07-23] MEDS: Enoxaparin Sodium 40 MG/0.4 ML SYRINGE SUBCUT (22:05)
[2023-07-23] MEDS: Insulin Glargine,Hum.rec.anlog 100 UNIT/ML 10 ML VIAL 15 UNIT SUBCUT (22:05)
--- NOTE | 2023-07-23 22:14 | PC.NURSE ---
pt going to ED overflow, report given to MARGARITO Mireles
[2023-07-24 00:20] VITALS: BP 135/92; PULSE 93; RESP 18; TEMP 36.4; O2SAT 95
--- NOTE | 2023-07-24 00:23 | PC.NURSE ---
report received from ED nurse, Aimee. Pt alert. Unable to answer appropriately regarding name,time location etc. Pt arrived from ED transported by weight control engineer Gabriel. Patient transferred to hospital bed 2. [place] catheter replaced as pt was wet. Pt cleaned and gowns and linen changed. Lung sounds clear in all bases. Vital signs stable- bp 135/92 (104), pulse 93, o2 95% on 3l nasal cannula. temp 97.6. Transparent film dressing no intact. This RN repositioned line and replaced transparent dressing. Fluids running at this time Educated PT on keep arm straight during iv infusion. Call paz within reach. Plan of care ongoing.
[2023-07-24] MEDS: Ampicillin Sodium/Sulbactam Na 3 GM in 0.9 % Sodium Chloride 100 ML IV ×5 (00:58→23:46)
--- NOTE | 2023-07-24 01:12 | PC.NURSE ---
PT medicated as per DEC.
[2023-07-24 04:07] LABS: Glucose, Whole Blood 200 mg/dL (60-115)
[2023-07-24] MEDS: Insulin Lispro 100 UNIT/ML 3 ML VIAL SUBCUT ×5 (04:08→20:21)
[2023-07-24 05:44] LABS: MANUAL DIFF FLAG NO
[2023-07-24 05:48] LABS: Basophils Absolute Auto 0.1 X10*3/uL (0.0-0.2); Basophils Percent Auto 0.5 % (0-2); Eosinophils Absolute Auto 0.1 X10*3/uL (0.0-0.4); Eosinophils Percent Auto 1.1 % (0-4); Hematocrit 46.3 % (42.0-52.0); Hemoglobin 15.2 g/dl (14.0-18.0); Imm Gran Abs Auto 0.07 X10*3/uL (0.00-0.03); Imm Gran Pct Auto 0.6 % (0.0-0.4); Lymphocytes Absolute Auto 1.8 X10*3/uL (1.2-4.9); Lymphocytes Percent Auto 15.2 % (20-40); Mean Corpuscular HGB Conc 32.8 g/dl (31.0-36.0); Mean Corpuscular Hemoglobin 30.5 pg (27.0-33.0); Mean Corpuscular Volume 92.8 fL (80.0-98.0); Monocytes Absolute Auto 0.8 X10*3/uL (0.1-1.2); Monocytes Percent Auto 6.6 % (2-11); Neutrophils Absolute Auto 8.8 x10*3/uL (2.0-8.3); Platelet Count 247 X10*3/uL (160-400); Red Blood Count 4.99 X10*6/uL (4.60-5.80); Red Cell Distribution Width 13.2 % (11.0-16.0); White Blood Count 11.6 X10*3/uL (4.8-10.8)
[2023-07-24 06:06] LABS: Anion Gap 11 (12-20); Blood Urea Nitrogen 23 mg/dL (9-16); Calcium 10.9 mg/dL (8.4-10.2); Carbon Dioxide 23 mmol/L (22-29); Chloride 112 mmol/L (96-108); Creatinine Clr Calc Pharmacy 94.4; Estimated Glomerular Filt Rate > 60; Glucose Random 207 mg/dL (60-115); Sodium 142 mmol/L (135-145)
[2023-07-24 07:34] LABS: Glucose, Whole Blood 205 mg/dL (60-115)
[2023-07-24 09:30] LABS: Glucose, Whole Blood 189 mg/dL (60-115)
--- NOTE | 2023-07-24 09:51 | MHC.SL.SWA ---
Speech Pathologist Impression: Risk of aspiration Risk of Aspiration Due to: Neurological Condition Dysphasia Diet Status: UPGRADE from NPO, START on REGULAR/THIN Liquid Consistency and Strategies for Safe Swallow: Liquid Intake Recommendation: Thin Liquid Intake Strategies: Small Sips No Straws Solid Food Consistency: Dietary Recommendations: Regular Additional Modifications to Solid Foods: Pt seen for BDE this morning while in ED overflow. Oral phase WFL. No overt s/s of aspiration. Recommend UPGRADE from NPO to REGULAR texture diet and THIN liquids, pills WHOLE in LIQUID or PUREE per pt's tolerance. Recommend assistance with tray set up as needed, periodic supervision throughout meals. Aspiration precautions apply. RECLAIMER to f/u 1x to ensure tolerance. Care team (PA, RN, RD) notified of recommendations via [place] Message. Oral Medication Intake: Whole with Liquid Please contact the pharmacy regarding appropriate crushable or liquid drug formulations that are available whenever modified delivery is recommended. Compensatory Strategies and Precautions to be Taken for Safe Swallow: Sitting Upright (90 deg) Double Swallow No Straw Small Bites and Sips Rate of Ingestion Change Supervision While Eating and Drinking for Safe Swallow: Total Supervision (1:1) Swallowing Recommended Treatments: Compens. Strategy Educat. Recommendation for Speech: Inpatient Speech Therapy Comment: 1 f/u Hematology Nurse Clinican/Clinical Fellow: No Supervisory Statement: I have reviewed and agree with the student/clinical fellow's documentation: N/A Speech Language Pathologist: Roya Shah M.A., CCC-RECLAIMER
--- NOTE | 2023-07-24 11:06 | PC.NURSE ---
assumed care of pt at 0700. report taken from MARGARITO Mierles. pt alert and oriented to self and place. IV patent. swallow eval completed by speech, upgraded from NPO to regular diet. pt 1 assist with walker to the bathroom and hygiene performed by DELILAH Laws. pt brought back to bed, [place] catheter placed. this RN spoke with pt's daughter, Roxi, for update. pt daughter sts the pt is normally unsteady on feet at home. pt on 2L O2 via NC, sating 98%. pt consumed breakfast and drinking water, tolerating well. currently resting quietly in bed, watching TV. rr even/unlabored. call paz within pt reach. all pt needs met howard. plan of care ongoing.
[2023-07-24 11:27] LABS: Glucose, Whole Blood 259 mg/dL (60-115)
--- NOTE | 2023-07-24 12:53 | PC.NURSE ---
nurse to nurse report given to MARGARITO De La Cruz. awaiting pt transport to floor.
--- NOTE | 2023-07-24 13:16 | P.PNIM_ITS ---
Subjective Subjective Date of Service: 07/24/23 Interval History: seen and examined this morning follow up for aspiration pneumonia confused, says he feels ok. denies sob Review of Systems Review of Systems: Yes all other systems are reviewed and are negative Constitutional Constitutional: Denies chills and Denies fever(s) Cardiovascular Cardiovascular: Denies chest pain, Denies palpitations and Denies dyspnea Respiratory Respiratory: Denies dyspnea Gastrointestinal Gastrointestinal: Denies abdominal pain Endocrine Endocrine: Denies palpitations Physical Exam 2 Vital Signs: Vital Signs: Last Vital Signs Temp 97.6 F 07/24/23 00:20 Pulse 93 07/24/23 00:20 Resp 18 07/24/23 00:20 BP 135/92 H 07/24/23 00:20 Pulse Ox 95 07/24/23 00:20 O2 Del Method Nasal Cannula 07/24/23 00:20 O2 Flow Rate 3 07/24/23 00:20 Oxygen Flow Rate 2 07/23/23 17:07 BMI result Body Mass Index 29.1 Const: General: comfortable, alert and awake Nutritional Appearance: a verage body habitus Orientation/consciousness: oriented to person Resp: Effort & Inspection: normal respiratory effort and able to speak in complete sentences Cardio: Rate: regular rate GI: Inspection: No distended Palpation (GI): Soft to palpation Neuro: Other: grossly nonfocal General: oriented to person and moves all extremities Objective Data Active Medications Acetaminophen (Acetaminophen 325 Mg Tablet) 650 mg PO Q6H PRN PRN Reason: Pain, Mild (Pain Scale 1-3) Acetaminophen (Acetaminophen Supp 650 Mg Supp.Rect) 650 mg [place] Q6H PRN PRN Reason: Pain, Mild (Pain Scale 1-3) Dextrose (Dextrose 50 % 25 Gm/50 Ml Syringe) 25 gm IVPUSH Q15M PRN; Protocol PRN Reason: per Hypoglycemia Standing Ord. Enoxaparin Sodium (Enoxaparin Sodium 40 Mg/0.4 Ml Syringe) 40 mg SUBCUT Q24H [facility] Last Admin: 07/23/23 22:05 Dose: 40 mg Documented By: JACQUELINE Glucose (Glucose Gel 15 Gm Gel..Gram.) 15 gm PO Q15M PRN; Protocol PRN Reason: per Hypoglycemia Standing Ord. Ampicillin Sodium/Sulbactam (Sodium 3 gm/ Sodium Chloride) 100 mls @ 200 mls/hr IV Q6H [facility] Last Infusion: 07/24/23 12:46 Dose: Infused Documented By: LUNA Insulin Glargine (Insulin Glargine,Hum.Rec.Anlog 100 Unit/Ml 10 Ml Vial) 15 unit SUBCUT BEDTIME [facility] Last Admin: 07/23/23 22:05 Dose: 15 unit Documented By: JACQUELINE Insulin Human Lispro (Insulin Lispro 100 Unit/Ml 3 Ml Vial) 0 unit SUBCUT Q6H [facility]; Protocol Last Admin: 07/24/23 12:06 Dose: 6 unit Documented By: LUNA Melatonin (Melatonin 3 Mg Tablet) 6 mg PO BEDTIME PRN PRN Reason: Insomnia Ondansetron HCl (Ondansetron Hcl 4 Mg/2 Ml Vial) 4 mg IVPUSH Q8H PRN PRN Reason: Nausea and Vomiting Sodium Chloride (0.9 % Sodium Chloride Flush 3 Ml Syringe) 3 ml IVFLUSH QSHIFT [facility] Last Admin: 07/24/23 07:43 Dose: Not Given Documented By: LUNA Non-Admin Reason: Med Not Available Labs 07/24/23 05:23 07/24/23 05:23 Labs: Laboratory Results - last 24 hr 07/23/23 07/23/23 07/23/23 17:36 18:04 21:56 MCV 89.3 MCH 30.8 MCHC 34.5 RDW 13.1 Plt Count 278 MPV 9.5 Immature Gran % (Auto) 0.5 H Neut % (Auto) 85.2 H Lymph % (Auto) 8.0 L [place] % (Auto) 5.8 Eos % (Auto) 0.2 Baso % (Auto) 0.3 Lymph # (Auto) 1.2 [place] # (Auto) 0.9 Eos # (Auto) 0.0 Baso # (Auto) 0.0 Abs Immat Gran (auto) 0.08 H Absolute Neuts (auto) 12.4 H Absolute Nucleated RBC 0.000 Nucleated RBC % (auto) 0.0 Anion Gap 16 Estim Creat Clear Calc 71.9 Estimated GFR > 60 POC Glucose 267 H Random Glucose 336 H Lactic Acid 1.5 Calcium 11.9 H D Magnesium 2.4 Total Bilirubin 2.3 H Direct Bilirubin 0.6 H AST 12 ALT 19 Alkaline Phosphatase 96 Total Protein 7.5 Albumin 4.1 Lipase 17 Urine Color Yellow Urine Appearance Clear Urine pH 7.0 Ur Specific [place] 1.010 Urine Protein 30 (1+) H Urine Glucose (UA) 500 H Urine Ketones 15 Urine Blood Negative Urine Nitrite Negative Ur Leukocyte Esterase Negative Urine RBC 0-2 Urine WBC 0-5 Ur Squamous Epith Cells 0-2 Urine Bacteria None Seen Hyaline Casts 0-2 07/24/23 07/24/23 07/24/23 04:02 05:23 07:31 MCV 92.8 MCH 30.5 MCHC 32.8 RDW 13.2 Plt Count 247 MPV 10.0 Immature Gran % (Auto) 0.6 H Neut % (Auto) 76.0 H Lymph % (Auto) 15.2 L [place] % (Auto) 6.6 Eos % (Auto) 1.1 Baso % (Auto) 0.5 Lymph # (Auto) 1.8 [place] # (Auto) 0.8 Eos # (Auto) 0.1 Baso # (Auto) 0.1 Abs Immat Gran (auto) 0.07 H Absolute Neuts (auto) 8.8 H Absolute Nucleated RBC 0.000 Nucleated RBC % (auto) 0.0 Anion Gap 11 L Estim Creat Clear Calc 94.4 Estimated GFR > 60 POC Glucose 200 H 205 H Random Glucose 207 H Lactic Acid Calcium 10.9 H D Magnesium Total Bilirubin Direct Bilirubin AST ALT Alkaline Phosphatase Total Protein Albumin Lipase Urine Color Urine Appearance Urine pH Ur Specific [place] Urine Protein Urine Glucose (UA) Urine Ketones Urine Blood Urine Nitrite Ur Leukocyte Esterase Urine RBC Urine WBC Ur Squamous Epith Cells Urine Bacteria Hyaline Casts 07/24/23 07/24/23 09:26 11:23 MCV MCH MCHC RDW Plt Count MPV Immature Gran % (Auto) Neut % (Auto) Lymph % (Auto) [place] % (Auto) Eos % (Auto) Baso % (Auto) Lymph # (Auto) [place] # (Auto) Eos # (Auto) Baso # (Auto) Abs Immat Gran (auto) Absolute Neuts (auto) Absolute Nucleated RBC Nucleated RBC % (auto) Anion Gap Estim Creat Clear Calc Estimated GFR POC Glucose 189 H 259 H Random Glucose Lactic Acid Calcium Magnesium Total Bilirubin Direct Bilirubin AST ALT Alkaline Phosphatase Total Protein Albumin Lipase Urine Color Urine Appearance Urine pH Ur Specific [place] Urine Protein Urine Glucose (UA) Urine Ketones Urine Blood Urine Nitrite Ur Leukocyte Esterase Urine RBC Urine WBC Ur Squamous Epith Cells Urine Bacteria Hyaline Casts Assessment and Plan (1) Aspiration pneumonia: Status: Acute Plan This is a 73-year-old male with pertinent history of asu-wbbmapj-crrquihnp diabetes mellitus, BPH, unspecified dementia, history of bladder CA, intracranial craniopharyngioma who was initially in the ED for unwitness fall, sent to SNF where he vomited and was sent back to the ED and found to have hypoxemia/aspiration pneumonia Acute hypoxemic respiratory failure and Sepsis due to aspiration pneumonia no severe features, wbc trending down continue IV unasyn, started 07/23 wean oxygen as tolerated, currently on 3l NC seen by speech, rec regular diet with thin liqs aspiration precautions blood cultures pending Projectile Vomiting Imaging without acute abnormality seems to have resolved Dgc-rfptvvp-gwpxuacam diabetes mellitus with hyperglycemia. hold metformin, januvia, trtimurity was started on Lantus follow SSI, POCs intracranial craniopharyngioma brain CT with stable changes fall (previous ED visit) PT rec STR - was sent to [facility], but sent back due to vomiting likely will need to return to STR when medically ready BPH continue finasteride DVT prophylaxis: Lovenox Full code attending - dr. kern Requires ongoing inpatient stay for supplemental oxygen and IV antibiotics Time Spent With Patient Time: Total time managing care of this patient today ____ minutes. Quality Stroke Does the patient have a stroke diagnosis?: No VTE Prior VTE?: No VTE Risk Level:: Medical - moderate - high VTE Device Contraindication: Treatment Not Indicated VTE Drug Contraindication: N/A - Med Ordered
[2023-07-24 13:33] VITALS: BP 131/58; PULSE 98; RESP 20; TEMP 36.1; O2SAT 96
[2023-07-24 13:38] VITALS: BP 142/73; PULSE 98; RESP 20; TEMP 36.6; O2SAT 95
[2023-07-24 15:04] VITALS: BP 135/71; PULSE 86; RESP 18; TEMP 36.1; O2SAT 96
[2023-07-24] MEDS: 0.9 % Sodium Chloride Flush 3 ML SYRINGE IVFLUSH ×2 (15:36→23:51)
[2023-07-24 16:03] LABS: Glucose, Whole Blood 193 mg/dL (60-115)
--- NOTE | 2023-07-24 16:14 | MHC.CM.PN ---
PT ADMITTED, HAS A DIAGNOSIS OF DEMENTIA CM CALLED PTS DAUGHTER/POA, EMERALD [phone] SHE REPORTS THE PT WAS LIVING ALONE AND HAD A CATERING SALES MANAGER FROM [facility] 3 X / WEEK SHE REPORTS THEY HAVE BEEN WORKING ON GETTING THE FRAIL ELDER WAIVER FROM TO GET PT MORE HELP OR TO LTC BUT THEY DID NOT KNOW [facility] HAD TO DO AN ASSESSMENT UNTIL A COUPLE OF DAYS AGO AND BY THEN HE WAS IN THE HOSPITAL SHE REPORTS THEY FEEL HE EITHER NEEDS INCREASED CARE AT HOME OR POSSIBLE LTC SHE HOPES THAT HE CAN GO TO STR FROM HERE THERE WAS A PLAN TO SEND HIM TO [facility] BUT THEN HE ENDED UP BACK IN THE ED SHE SAYS THEY HAVE NO REAL PREFERENCE REGARDING THE SNF, THEY JUST WANT HIM TO RECEIVE GOOD CARE AND BE NEARBY PT USES A WALKER AT [facility] HE HAS A POA ON FILE PCP: DERIK LARSON IMM DELIVERED DCP: STR? REFERRAL SENT TO [facility] TO DETERMINE IF THEY CAN ASSIST WITH FRAIL ELDER WAIVER FOR [facility]
[2023-07-24 19:02] VITALS: BP 122/62; PULSE 78; RESP 18; TEMP 36.2; O2SAT 92
[2023-07-24 20:00] LABS: Glucose, Whole Blood 201 mg/dL (60-115)
[2023-07-24] MEDS: Enoxaparin Sodium 40 MG/0.4 ML SYRINGE SUBCUT (20:19)
[2023-07-24] MEDS: Insulin Glargine,Hum.rec.anlog 100 UNIT/ML 10 ML VIAL 15 UNIT SUBCUT (20:20)
[2023-07-24] MEDS: Acetaminophen 325 MG TABLET 650 MG PO (20:26)
[2023-07-24 23:46] VITALS: BP 132/80; PULSE 67; RESP 19; TEMP 36.6; O2SAT 97
[2023-07-24] MEDS: ondansetron HCL 4 MG/2 ML VIAL IVPUSH (23:51)
[2023-07-25] MEDS: Acetaminophen 325 MG TABLET 650 MG PO ×2 (02:40→20:12)
[2023-07-25] MEDS: Ampicillin Sodium/Sulbactam Na 3 GM in 0.9 % Sodium Chloride 100 ML IV ×3 (06:01→18:02)
[2023-07-25 07:17] VITALS: BP 133/95; PULSE 113; RESP 18; TEMP 36.3; O2SAT 95
[2023-07-25 07:33] LABS: Glucose, Whole Blood 269 mg/dL (60-115)
[2023-07-25] MEDS: Finasteride 5 MG TABLET PO (08:04)
[2023-07-25] MEDS: Insulin Lispro 100 UNIT/ML 3 ML VIAL SUBCUT ×4 (08:04→20:12)
[2023-07-25] MEDS: 0.9 % Sodium Chloride Flush 3 ML SYRINGE IVFLUSH ×3 (08:04→20:13)
--- NOTE | 2023-07-25 09:41 | HO.PM.IMPN ---
Subjective Subjective Date of Service: 07/25/23 Interval History: seen and examined this morning follow up for aspiration pneumonia confused, says he feels ok. denies sob Review of Systems Review of Systems: Yes all other systems are reviewed and are negative Constitutional Constitutional: Denies chills and Denies fever(s) Cardiovascular Cardiovascular: Denies chest pain, Denies palpitations and Denies dyspnea Respiratory Respiratory: Denies dyspnea Gastrointestinal Gastrointestinal: Denies abdominal pain Endocrine Endocrine: Denies palpitations Physical Exam Vital Signs: Vital Signs: Last Vital Signs Temp 97.3 F 07/25/23 07:17 Pulse 113 H 07/25/23 07:17 Resp 18 07/25/23 07:17 BP 133/95 H 07/25/23 07:17 Pulse Ox 95 07/25/23 07:17 O2 Del Method Nasal Cannula 07/25/23 07:17 O2 Flow Rate 2.0 07/25/23 07:17 Oxygen Flow Rate 2 07/23/23 17:07 BMI result Body Mass Index 29.1 Appearing in no acute distress lung sounds are clear to auscultation heart regular rate rhythm, clear S1, S2 positive bowel sounds, abdomen is soft, nontender neuro patient is alert x3, no focal deficits Objective Data Active Medications Acetaminophen (Acetaminophen 325 Mg Tablet) 650 mg PO Q6H PRN PRN Reason: Pain, Mild (Pain Scale 1-3) Last Admin: 07/25/23 02:40 Dose: 650 mg Documented By: JUAN M Acetaminophen (Acetaminophen Supp 650 Mg Supp.Rect) 650 mg [place] Q6H PRN PRN Reason: Pain, Mild (Pain Scale 1-3) Dextrose (Dextrose 50 % 25 Gm/50 Ml Syringe) 25 gm IVPUSH Q15M PRN; Protocol PRN Reason: per Hypoglycemia Standing Ord. Enoxaparin Sodium (Enoxaparin Sodium 40 Mg/0.4 Ml Syringe) 40 mg SUBCUT Q24H [facility] Last Admin: 07/24/23 20:19 Dose: 40 mg Documented By: TENZIN Finasteride (Finasteride 5 Mg Tablet) 5 mg PO DAILY [facility] Last Admin: 07/25/23 08:04 Dose: 5 mg Documented By: GRAZIC Glucose (Glucose Gel 15 Gm Gel..Gram.) 15 gm PO Q15M PRN; Protocol PRN Reason: per Hypoglycemia Standing Ord. Ampicillin Sodium/Sulbactam (Sodium 3 gm/ Sodium Chloride) 100 mls @ 200 mls/hr IV Q6H [facility] Last Infusion: 07/25/23 07:04 Dose: Infused Documented By: RASHAAD Insulin Glargine (Insulin Glargine,Hum.Rec.Anlog 100 Unit/Ml 10 Ml Vial) 15 unit SUBCUT BEDTIME [facility] Last Admin: 07/24/23 20:20 Dose: 15 unit Documented By: TENZIN Insulin Human Lispro (Insulin Lispro 100 Unit/Ml 3 Ml Vial) 0 unit SUBCUT QIDACHS [facility]; Protocol Last Admin: 07/25/23 08:04 Dose: 6 unit Documented By: RASHAAD Melatonin (Melatonin 3 Mg Tablet) 6 mg PO BEDTIME PRN PRN Reason: Insomnia Ondansetron HCl (Ondansetron Hcl 4 Mg/2 Ml Vial) 4 mg IVPUSH Q8H PRN PRN Reason: Nausea and Vomiting Last Admin: 07/24/23 23:51 Dose: 4 mg Documented By: JUAN M Sodium Chloride (0.9 % Sodium Chloride Flush 3 Ml Syringe) 3 ml IVFLUSH QSHIFT [facility] Last Admin: 07/25/23 08:04 Dose: 3 ml Documented By: RASHAAD Labs 07/24/23 05:23 07/24/23 05:23 Labs: Laboratory Results - last 24 hr 07/24/23 07/24/23 07/24/23 11:23 15:59 19:53 POC Glucose 259 H 193 H 201 H 07/25/23 07:21 POC Glucose 269 H Microbiology Microbiology Results: Microbiology 07/23/23 17:53 Blood Culture - Preliminary Blood - Venous No growth after 24 hours. 07/23/23 17:36 Blood Culture - Preliminary Blood - Venous No growth after 24 hours. Assessment and Plan (1) Aspiration pneumonia: Status: Acute Plan This is a 73-year-old male with pertinent history of jzf-xptvyic-eyxesfjda diabetes mellitus, BPH, unspecified dementia, history of bladder CA, intracranial craniopharyngioma who was initially in the ED for unwitness fall, sent to SNF where he vomited and was sent back to the ED and found to have hypoxemia/aspiration pneumonia Acute hypoxemic respiratory failure and Sepsis due to aspiration pneumonia continue IV unasyn, started 10/12 wean oxygen as tolerated, currently on 3l NC seen by speech, rec regular diet with thin liqs aspiration precautions blood cultures neg after 24 hrs Projectile Vomiting still with some nausea but no vomiting Imaging without acute abnormality resolved Zvn-iyikkys-percymjat diabetes mellitus with hyperglycemia. hold metformin, januvia and trulicity continue ss and Lantus Intracranial craniopharyngioma brain CT with stable changes Fall (previous ED visit) PT rec STR - was sent to [facility], but sent back due to vomiting will need to return to STR when medically ready BPH continue finasteride DVT prophylaxis: Lovenox Full code attending - dr. Lamb Requires ongoing inpatient stay for supplemental oxygen and IV antibiotics Time Spent With Patient Time: Total time managing care of this patient today ____ minutes. Quality Stroke Does the patient have a stroke diagnosis?: No VTE Prior VTE?: No VTE Risk Level:: Medical - moderate - high VTE Device Contraindication: Treatment Not Indicated VTE Drug Contraindication: N/A - Med Ordered
[2023-07-25 11:22] LABS: Glucose, Whole Blood 275 mg/dL (60-115)
--- NOTE | 2023-07-25 14:32 | MHC.CM.PN ---
KARISSA MET WITH PTS DAUGHTER, CARMEN, AT BEDSIDE SHE REPORTS THEY WERE WONDERING ABOUT PTS SNF FOR STR C EXPLAINED THEY WILL NOT KNOW FOR SURE UNTIL WE KNOW WHEN THE PT WILL BE MEDICALLY CLEARED IT WILL DEPEND ON BED AVAILABILITY SHE IS AWARE A REFERRAL WAS SENT TO [facility] FOR ASSISTANCE WITH THE MH JACOB THEY STARTED OPTIONS FOR SENIOR CARE PLAN DISCUSSED INCLUDING INCREASED HOME SERVICES ONCE MH IS ACTIVE, ASSISTED LIVING AND LTC SHE IS AWARE PT WILL BE GOING TO STR UPON DC SHE ALSO ASKS THAT IT BE NOTED ANY OF THE TPS DAUGHTERS CAN RECEIVE UPDATES: EMERALD (POA/HCP), CARMEN, AND STACIE
[2023-07-25 16:00] VITALS: BP 143/89; PULSE 93; RESP 18; TEMP 36.3; O2SAT 93
[2023-07-25 16:16] LABS: Glucose, Whole Blood 179 mg/dL (60-115)
[2023-07-25 19:59] LABS: Glucose, Whole Blood 192 mg/dL (60-115)
[2023-07-25 20:00] VITALS: BP 152/70; PULSE 78; RESP 18; TEMP 36.3; O2SAT 97
[2023-07-25] MEDS: Insulin Glargine,Hum.rec.anlog 100 UNIT/ML 10 ML VIAL 15 UNIT SUBCUT (20:12)
[2023-07-25] MEDS: Enoxaparin Sodium 40 MG/0.4 ML SYRINGE SUBCUT (20:14)
[2023-07-26] MEDS: Ampicillin Sodium/Sulbactam Na 3 GM in 0.9 % Sodium Chloride 100 ML IV ×4 (00:19→17:47)
--- NOTE | 2023-07-26 00:30 | PC.NURSE ---
Patient orientation waxes and wanes, a&ox1-3 consistent to self, intermittently to date/year and situation. Disoriented to place. Frequent attempts made to reorient. Pt has hx of dementia and is impulsive, frequently pulling off 2L nc and [place] catheter despite redirection. Pt attempted to get OOB despite alarm. In-room camera placed. Bed alarm and high fall risk measures continue.
[2023-07-26 07:22] VITALS: BP 174/95; PULSE 90; RESP 17; TEMP 36.6; O2SAT 96
[2023-07-26 07:38] LABS: Glucose, Whole Blood 163 mg/dL (60-115)
[2023-07-26] MEDS: Finasteride 5 MG TABLET PO (08:33)
[2023-07-26] MEDS: 0.9 % Sodium Chloride Flush 3 ML SYRINGE IVFLUSH ×3 (08:33→20:37)
[2023-07-26] MEDS: Insulin Lispro 100 UNIT/ML 3 ML VIAL SUBCUT ×3 (08:35→16:51)
--- NOTE | 2023-07-26 10:18 | P.PNIM_ITS ---
Subjective Subjective Date of Service: 07/26/23 Interval History: seen and examined this morning follow up for aspiration pneumonia less confusion now Review of Systems Review of Systems: Yes all other systems are reviewed and are negative Constitutional Constitutional: Denies chills and Denies fever(s) Cardiovascular Cardiovascular: Denies chest pain, Denies palpitations and Denies dyspnea Respiratory Respiratory: Denies dyspnea Gastrointestinal Gastrointestinal: Denies abdominal pain Endocrine Endocrine: Denies palpitations Physical Exam 2 Vital Signs: Vital Signs: Last Vital Signs Temp 97.9 F 07/26/23 07:22 Pulse 90 07/26/23 07:22 Resp 17 07/26/23 07:22 BP 174/95 H 07/26/23 07:22 Pulse Ox 96 07/26/23 07:22 O2 Del Method Room Air 07/26/23 07:22 O2 Flow Rate 2 07/25/23 20:00 Oxygen Flow Rate 2 07/23/23 17:07 BMI result Body Mass Index 29.1 Appearing in no acute distress lung sounds are clear to auscultation heart regular rate rhythm, clear S1, S2 positive bowel sounds, abdomen is soft, nontender neuro patient is alert x3, no focal deficits Objective Data Active Medications Acetaminophen (Acetaminophen 325 Mg Tablet) 650 mg PO Q6H PRN PRN Reason: Pain, Mild (Pain Scale 1-3) Last Admin: 07/25/23 20:12 Dose: 650 mg Documented By: POONAM Acetaminophen (Acetaminophen Supp 650 Mg Supp.Rect) 650 mg [place] Q6H PRN PRN Reason: Pain, Mild (Pain Scale 1-3) Dextrose (Dextrose 50 % 25 Gm/50 Ml Syringe) 25 gm IVPUSH Q15M PRN; Protocol PRN Reason: per Hypoglycemia Standing Ord. Enoxaparin Sodium (Enoxaparin Sodium 40 Mg/0.4 Ml Syringe) 40 mg SUBCUT Q24H [facility] Last Admin: 07/25/23 20:14 Dose: 40 mg Documented By: POONAM Finasteride (Finasteride 5 Mg Tablet) 5 mg PO DAILY [facility] Last Admin: 07/26/23 08:33 Dose: 5 mg Documented By: RASHAAD Glucose (Glucose Gel 15 Gm Gel..Gram.) 15 gm PO Q15M PRN; Protocol PRN Reason: per Hypoglycemia Standing Ord. Ampicillin Sodium/Sulbactam (Sodium 3 gm/ Sodium Chloride) 100 mls @ 200 mls/hr IV Q6H [facility] Last Infusion: 07/26/23 06:05 Dose: Infused Documented By: POONAM Insulin Glargine (Insulin Glargine,Hum.Rec.Anlog 100 Unit/Ml 10 Ml Vial) 15 unit SUBCUT BEDTIME [facility] Last Admin: 07/25/23 20:12 Dose: 15 unit Documented By: POONAM Insulin Human Lispro (Insulin Lispro 100 Unit/Ml 3 Ml Vial) 0 unit SUBCUT QIDACHS [facility]; Protocol Last Admin: 07/26/23 08:35 Dose: 2 unit Documented By: RASHAAD Melatonin (Melatonin 3 Mg Tablet) 6 mg PO BEDTIME PRN PRN Reason: Insomnia Ondansetron HCl (Ondansetron Hcl 4 Mg/2 Ml Vial) 4 mg IVPUSH Q8H PRN PRN Reason: Nausea and Vomiting Last Admin: 07/24/23 23:51 Dose: 4 mg Documented By: JUAN M Sodium Chloride (0.9 % Sodium Chloride Flush 3 Ml Syringe) 3 ml IVFLUSH QSHIFT [facility] Last Admin: 07/26/23 08:33 Dose: 3 ml Documented By: RASHAAD Labs 07/24/23 05:23 07/24/23 05:23 Labs: Laboratory Results - last 24 hr 07/25/23 07/25/23 07/25/23 11:17 16:06 19:54 POC Glucose 275 H 179 H 192 H 07/26/23 07:28 POC Glucose 163 H Microbiology Microbiology Results: Microbiology 07/23/23 17:53 Blood Culture - Preliminary Blood - Venous No growth after 48 hours. 07/23/23 17:36 Blood Culture - Preliminary Blood - Venous No growth after 48 hours. Assessment and Plan (1) Aspiration pneumonia: Status: Acute Plan This is a 73-year-old male with pertinent history of byu-ovelmax-mwdapaleo diabetes mellitus, BPH, unspecified dementia, history of bladder CA, intracranial craniopharyngioma who was initially in the ED for unwitness fall, sent to SNF where he vomited and was sent back to the ED and found to have hypoxemia/aspiration pneumonia Acute hypoxemic respiratory failure and Sepsis due to aspiration pneumonia. Resolved continue IV unasyn, started 10/12 wean oxygen as tolerated seen by speech, rec regular diet with thin liqs aspiration precautions blood cultures neg after 48 hrs Projectile Vomiting with epigastric pain likely secondary to gastritis . vomiting resolved Imaging without acute abnormality PPI added for likely gastritis Ejo-nditzrj-mjyleaukq diabetes mellitus with hyperglycemia. Resume metformin, januvia continue ss and Lantus Intracranial craniopharyngioma brain CT with stable changes Fall (previous ED visit) PT rec STR - was sent to [facility], but sent back due to vomiting will need to return to STR when medically ready BPH continue finasteride DVT prophylaxis: Lovenox Full code attending - dr. Lamb DISPO back to STR when medically clear Requires ongoing inpatient stay for supplemental oxygen and IV antibiotics Time Spent With Patient Time: Total time managing care of this patient today ____ minutes. Quality Stroke Does the patient have a stroke diagnosis?: No VTE Prior VTE?: No VTE Risk Level:: Medical - moderate - high VTE Device Contraindication: Treatment Not Indicated VTE Drug Contraindication: N/A - Med Ordered
[2023-07-26] MEDS: Omeprazole 20 MG CAPSULE.DR PO ×2 (11:00→16:49)
[2023-07-26 11:28] LABS: Glucose, Whole Blood 157 mg/dL (60-115)
[2023-07-26 15:49] VITALS: BP 144/71; PULSE 73; RESP 18; TEMP 36.4; O2SAT 93
[2023-07-26 16:25] LABS: Glucose, Whole Blood 153 mg/dL (60-115)
[2023-07-26] MEDS: metFORMIN HCl 500 MG TABLET PO (16:49)
[2023-07-26 19:50] VITALS: BP 140/84; PULSE 89; RESP 18; TEMP 36.3; O2SAT 96
[2023-07-26 20:12] LABS: Glucose, Whole Blood 151 mg/dL (60-115)
[2023-07-26] MEDS: Insulin Glargine,Hum.rec.anlog 100 UNIT/ML 10 ML VIAL 15 UNIT SUBCUT (20:36)
[2023-07-26] MEDS: Enoxaparin Sodium 40 MG/0.4 ML SYRINGE SUBCUT (20:36)
[2023-07-27] MEDS: Ampicillin Sodium/Sulbactam Na 3 GM in 0.9 % Sodium Chloride 100 ML IV ×4 (00:13→18:20)
[2023-07-27 03:13] VITALS: BP 136/82; PULSE 74; RESP 18; TEMP 36.5; O2SAT 95
[2023-07-27 03:22] VITALS: O2SAT 96
[2023-07-27] MEDS: Omeprazole 20 MG CAPSULE.DR PO ×2 (05:58→16:16)
[2023-07-27 06:55] VITALS: BP 152/90; PULSE 87; RESP 17; TEMP 36.6
[2023-07-27 07:09] LABS: Glucose, Whole Blood 106 mg/dL (60-115)
[2023-07-27] MEDS: Acetaminophen 325 MG TABLET 650 MG PO (07:40)
[2023-07-27] MEDS: SITagliptin Phosphate 100 MG TABLET PO (07:41)
[2023-07-27] MEDS: metFORMIN HCl 500 MG TABLET PO ×2 (07:41→16:16)
[2023-07-27] MEDS: Finasteride 5 MG TABLET PO (07:42)
[2023-07-27] MEDS: 0.9 % Sodium Chloride Flush 3 ML SYRINGE IVFLUSH ×3 (07:45→20:55)
[2023-07-27 09:26] VITALS: O2SAT 94
--- NOTE | 2023-07-27 10:08 | MHC.SL.SWA ---
Speech Pathologist Impression: WFL Risk of Aspiration Due to: Neurological Condition Dysphasia Diet Status: No changes Liquid Consistency and Strategies for Safe Swallow: Liquid Intake Recommendation: Thin Liquid Intake Strategies: Small Sips No Straws Solid Food Consistency: Dietary Recommendations: Regular Oral Medication Intake: Whole with Liquid Please contact the pharmacy regarding appropriate crushable or liquid drug formulations that are available whenever modified delivery is recommended. Compensatory Strategies and Precautions to be Taken for Safe Swallow: Sitting Upright (90 deg) Double Swallow No Straw Small Bites and Sips Rate of Ingestion Change Supervision While Eating and Drinking for Safe Swallow: Intermittent Supervision Recommendation for Speech: D/C Operations Specialists Clinican/Clinical Fellow: No Supervisory Statement: I have reviewed and agree with the student/clinical fellow's documentation: N/A Speech Language Pathologist: Roya Shah M.A., CCC-[employer]
[2023-07-27] MEDS: Throat Lozenge, Medicated LOZENGE 1 LOZENGE MUCOUS MEM ×2 (11:03→16:29)
[2023-07-27 11:07] LABS: Glucose, Whole Blood 146 mg/dL (60-115)
--- NOTE | 2023-07-27 13:06 | HO.PM.IMPN ---
Subjective Subjective Date of Service: 07/27/23 Interval History: Mild confusion but easily reoriented well. No respiratory distress Review of Systems Denies chest pain Denies shortness of breath Denies nausea vomiting diarrhea Denies fever chills Physical Exam Vital Signs: Vital Signs: Last Vital Signs Temp 97.9 F 07/27/23 06:55 Pulse 87 07/27/23 06:55 Resp 17 07/27/23 06:55 BP 152/90 H 07/27/23 06:55 Pulse Ox 94 07/27/23 09:26 O2 Del Method Room Air 07/27/23 09:26 O2 Flow Rate 2 07/27/23 06:55 Oxygen Flow Rate 2 07/23/23 17:07 BMI result Body Mass Index 29.1 Const: Other: Awake alert no acute distress Resp: Other: Clear to auscultation bilaterally no rales rhonchi or wheezes Cardio: Other: No S4; positive S1-S2; no S3 murmurs rubs gallops GI: Other: Soft nontender nondistended normoactive bowel sounds Extrem: Other: No edema bilaterally Objective Data Active Medications Acetaminophen (Acetaminophen 325 Mg Tablet) 650 mg PO Q6H PRN PRN Reason: Pain, Mild (Pain Scale 1-3) Last Admin: 07/27/23 07:40 Dose: 650 mg Documented By: ADELAIDA Acetaminophen (Acetaminophen Supp 650 Mg Supp.Rect) 650 mg OR Q6H PRN PRN Reason: Pain, Mild (Pain Scale 1-3) Benzocaine (Throat Lozenge, Medicated Lozenge) 1 lozenge MUCOUS MEM Q2H PRN PRN Reason: Sore Throat Last Admin: 07/27/23 11:03 Dose: 1 lozenge Documented By: ADELAIDA Dextrose (Dextrose 50 % 25 Gm/50 Ml Syringe) 25 gm IVPUSH Q15M PRN; Protocol PRN Reason: per Hypoglycemia Standing Ord. Enoxaparin Sodium (Enoxaparin Sodium 40 Mg/0.4 Ml Syringe) 40 mg SUBCUT Q24H [facility] Last Admin: 07/26/23 20:36 Dose: 40 mg Documented By: ANTONETTE Finasteride (Finasteride 5 Mg Tablet) 5 mg PO DAILY [facility] Last Admin: 07/27/23 07:42 Dose: 5 mg Documented By: ADELAIDA Glucose (Glucose Gel 15 Gm Gel..Gram.) 15 gm PO Q15M PRN; Protocol PRN Reason: per Hypoglycemia Standing Ord. Ampicillin Sodium/Sulbactam (Sodium 3 gm/ Sodium Chloride) 100 mls @ 200 mls/hr IV Q6H [facility] Last Infusion: 07/27/23 11:46 Dose: Infused Documented By: ADELAIDA Insulin Glargine (Insulin Glargine,Hum.Rec.Anlog 100 Unit/Ml 10 Ml Vial) 15 unit SUBCUT BEDTIME [facility] Last Admin: 07/26/23 20:36 Dose: 15 unit Documented By: ANTONETTE Insulin Human Lispro (Insulin Lispro 100 Unit/Ml 3 Ml Vial) 0 unit SUBCUT QIDACHS [facility]; Protocol Last Admin: 07/27/23 11:04 Dose: Not Given Documented By: ADELAIDA Non-Admin Reason: No Insulin Coverage Melatonin (Melatonin 3 Mg Tablet) 6 mg PO BEDTIME PRN PRN Reason: Insomnia Metformin HCl (Metformin Hcl 500 Mg Tablet) 500 mg PO BIDWM [facility] Last Admin: 07/27/23 07:41 Dose: 500 mg Documented By: ADELAIDA Omeprazole (Omeprazole 20 Mg Capsule.) 20 mg PO BID@0630,1630 [facility] Last Admin: 07/27/23 05:58 Dose: 20 mg Documented By: ANTONETTE Ondansetron HCl (Ondansetron Hcl 4 Mg/2 Ml Vial) 4 mg IVPUSH Q8H PRN PRN Reason: Nausea and Vomiting Last Admin: 07/24/23 23:51 Dose: 4 mg Documented By: JUAN M Sitagliptin Phosphate (Sitagliptin Phosphate 100 Mg Tablet) 100 mg PO DAILY [facility] Last Admin: 07/27/23 07:41 Dose: 100 mg Documented By: ADELAIDA Sodium Chloride (0.9 % Sodium Chloride Flush 3 Ml Syringe) 3 ml IVFLUSH QSHIFT [facility] Last Admin: 07/27/23 07:45 Dose: 3 ml Documented By: ADELAIDA Labs 07/24/23 05:23 07/24/23 05:23 Labs: Laboratory Results - last 24 hr 07/26/23 07/26/23 07/27/23 16:21 20:09 07:06 POC Glucose 153 H 151 H 106 07/27/23 11:03 POC Glucose 146 H Assessment and Plan (1) Hypoxia: Status: Acute (2) Aspiration pneumonia: Status: Acute (3) Diabetes mellitus: Status: Acute Plan This is a 73-year-old male with pertinent history of wuv-ckbpxlx-korezjlqq diabetes mellitus, BPH, unspecified dementia, history of bladder CA, intracranial craniopharyngioma who was initially in the ED for unwitness fall, sent to SNF where he vomited and was sent back to the ED and found to have hypoxemia/aspiration pneumonia. Sepsis resolved; now satting on room air no O2 requirement 1.Acute hypoxemic respiratory failure and Sepsis due to aspiration pneumonia -IV unasyn,(5)... Switch to Augmentin on DC -wean oxygen as tolerated -PPI 2.Iio-aogltmz-wepokncyh diabetes mellitus with hyperglycemia -acceptable control on current therapies -metformin, januvia -Lantus along with lispro correctional scale -adjust as indicated 3.Fall (previous ED visit) -PT rec STR;plans initiated with Case Management Lovenox Full code Requires ongoing inpatient stay for supplemental oxygen wean and IV antibiotics Time Spent With Patient Time: Total time managing care of this patient today ____ minutes. Quality Stroke Does the patient have a stroke diagnosis?: No VTE Prior VTE?: No VTE Risk Level:: Medical - moderate - high VTE Device Contraindication: Treatment Not Indicated VTE Drug Contraindication: N/A - Med Ordered
[2023-07-27 15:14] VITALS: BP 130/79; PULSE 86; RESP 18; TEMP 36.8; O2SAT 94
[2023-07-27 16:10] LABS: Glucose, Whole Blood 129 mg/dL (60-115)
[2023-07-27] MEDS: ondansetron HCL 4 MG/2 ML VIAL IVPUSH (16:31)
[2023-07-27 19:08] VITALS: BP 161/88; PULSE 79; RESP 14; TEMP 36.2; O2SAT 95
[2023-07-27 20:33] LABS: Glucose, Whole Blood 124 mg/dL (60-115)
[2023-07-27] MEDS: Enoxaparin Sodium 40 MG/0.4 ML SYRINGE SUBCUT (20:54)
[2023-07-27] MEDS: Insulin Glargine,Hum.rec.anlog 100 UNIT/ML 10 ML VIAL 15 UNIT SUBCUT (20:55)
[2023-07-28] MEDS: Ampicillin Sodium/Sulbactam Na 3 GM in 0.9 % Sodium Chloride 100 ML IV ×3 (00:07→12:19)
[2023-07-28] MEDS: Omeprazole 20 MG CAPSULE.DR PO ×2 (05:33→16:41)
[2023-07-28 06:48] VITALS: BP 152/72; PULSE 79; RESP 18; TEMP 36.1; O2SAT 94
[2023-07-28 07:04] LABS: Glucose, Whole Blood 94 mg/dL (60-115)
[2023-07-28] MEDS: metFORMIN HCl 500 MG TABLET PO ×2 (08:27→16:41)
[2023-07-28] MEDS: SITagliptin Phosphate 100 MG TABLET PO (08:27)
[2023-07-28] MEDS: Finasteride 5 MG TABLET PO (08:27)
[2023-07-28] MEDS: 0.9 % Sodium Chloride Flush 3 ML SYRINGE IVFLUSH (08:27)
[2023-07-28] MEDS: Throat Lozenge, Medicated LOZENGE 1 LOZENGE MUCOUS MEM (08:35)
[2023-07-28 11:02] LABS: Glucose, Whole Blood 129 mg/dL (60-115)
--- NOTE | 2023-07-28 13:41 | HO.PM.IMPN ---
Subjective Subjective Date of Service: 07/28/23 Interval History: No acute issues overnight. Remains stable and well compensated Review of Systems Denies chest pain Denies shortness of breath Denies nausea vomiting diarrhea Denies fever chills Physical Exam Vital Signs: Vital Signs: Last Vital Signs Temp 97 F 07/28/23 06:48 Pulse 79 07/28/23 06:48 Resp 18 07/28/23 06:48 BP 152/72 H 07/28/23 06:48 Pulse Ox 94 07/28/23 06:48 O2 Del Method Room Air 07/28/23 06:48 O2 Flow Rate 2 07/27/23 06:55 Oxygen Flow Rate 2 07/23/23 17:07 BMI result Body Mass Index 29.1 Const: Other: Awake alert no acute distress Resp: Other: Clear to auscultation bilaterally no rales rhonchi or wheezes Cardio: Other: No S4; positive S1-S2; no S3 murmurs rubs gallops GI: Other: Soft nontender nondistended normoactive bowel sounds Extrem: Other: No edema bilaterally Objective Data Active Medications Acetaminophen (Acetaminophen 325 Mg Tablet) 650 mg PO Q6H PRN PRN Reason: Pain, Mild (Pain Scale 1-3) Last Admin: 07/27/23 07:40 Dose: 650 mg Documented By: ADELAIDA Acetaminophen (Acetaminophen Supp 650 Mg Supp.Rect) 650 mg CO Q6H PRN PRN Reason: Pain, Mild (Pain Scale 1-3) Benzocaine (Throat Lozenge, Medicated Lozenge) 1 lozenge MUCOUS MEM Q2H PRN PRN Reason: Sore Throat Last Admin: 07/28/23 08:35 Dose: 1 lozenge Documented By: ADELAIDA Dextrose (Dextrose 50 % 25 Gm/50 Ml Syringe) 25 gm IVPUSH Q15M PRN; Protocol PRN Reason: per Hypoglycemia Standing Ord. Enoxaparin Sodium (Enoxaparin Sodium 40 Mg/0.4 Ml Syringe) 40 mg SUBCUT Q24H [facility] Last Admin: 07/27/23 20:54 Dose: 40 mg Documented By: ANTONETTE Finasteride (Finasteride 5 Mg Tablet) 5 mg PO DAILY [facility] Last Admin: 07/28/23 08:27 Dose: 5 mg Documented By: ADELAIDA Glucose (Glucose Gel 15 Gm Gel..Gram.) 15 gm PO Q15M PRN; Protocol PRN Reason: per Hypoglycemia Standing Ord. Ampicillin Sodium/Sulbactam (Sodium 3 gm/ Sodium Chloride) 100 mls @ 200 mls/hr IV Q6H [facility] Last Infusion: 07/28/23 13:14 Dose: Infused Documented By: ADELAIDA Insulin Glargine (Insulin Glargine,Hum.Rec.Anlog 100 Unit/Ml 10 Ml Vial) 15 unit SUBCUT BEDTIME [facility] Last Admin: 07/27/23 20:55 Dose: 15 unit Documented By: ANTONETTE Insulin Human Lispro (Insulin Lispro 100 Unit/Ml 3 Ml Vial) 0 unit SUBCUT QIDACHS [facility]; Protocol Last Admin: 07/28/23 11:05 Dose: Not Given Documented By: ADELAIDA Non-Admin Reason: No Insulin Coverage Melatonin (Melatonin 3 Mg Tablet) 6 mg PO BEDTIME PRN PRN Reason: Insomnia Metformin HCl (Metformin Hcl 500 Mg Tablet) 500 mg PO BIDWM [facility] Last Admin: 07/28/23 08:27 Dose: 500 mg Documented By: ADELAIDA Omeprazole (Omeprazole 20 Mg Capsule.) 20 mg PO BID@0630,1630 [facility] Last Admin: 07/28/23 05:33 Dose: 20 mg Documented By: ANTONETTE Ondansetron HCl (Ondansetron Hcl 4 Mg/2 Ml Vial) 4 mg IVPUSH Q8H PRN PRN Reason: Nausea and Vomiting Last Admin: 07/27/23 16:31 Dose: 4 mg Documented By: ADELAIDA Sitagliptin Phosphate (Sitagliptin Phosphate 100 Mg Tablet) 100 mg PO DAILY [facility] Last Admin: 07/28/23 08:27 Dose: 100 mg Documented By: ADELAIDA Sodium Chloride (0.9 % Sodium Chloride Flush 3 Ml Syringe) 3 ml IVFLUSH QSHIFT [facility] Last Admin: 07/28/23 08:27 Dose: 3 ml Documented By: ADELAIDA Labs 07/24/23 05:23 07/24/23 05:23 Labs: Laboratory Results - last 24 hr 07/27/23 07/27/23 07/28/23 16:07 20:26 07:01 POC Glucose 129 H 124 H 94 07/28/23 10:59 POC Glucose 129 H Assessment and Plan (1) Aspiration pneumonia: Status: Acute Plan This is a 73-year-old male with pertinent history of ezc-jarttjd-vqdujcoqq diabetes mellitus, BPH, unspecified dementia, history of bladder CA, intracranial craniopharyngioma who was initially in the ED for unwitness fall, sent to SNF where he vomited and was sent back to the ED and found to have hypoxemia/aspiration pneumonia. Sepsis resolved; now satting on room air no O2 requirement 1.Acute hypoxemic respiratory failure and Sepsis due to aspiration pneumonia -IV unasyn,()... Switch to Augmentin on DC -wean oxygen as tolerated -PPI 2.Mkz-rjvuejd-pysemvsdy diabetes mellitus with hyperglycemia -acceptable control on current therapies -metformin, januvia -Lantus along with lispro correctional scale -adjust as indicated 3.Fall (previous ED visit) -PT rec STR;plans initiated with Case Management [place] Full code Requires ongoing inpatient stay for supplemental oxygen wean and IV antibiotics Time Spent With Patient Time: Total time managing care of this patient today ____ minutes. Quality Stroke Does the patient have a stroke diagnosis?: No VTE Prior VTE?: No VTE Risk Level:: Medical - moderate - high VTE Device Contraindication: Treatment Not Indicated VTE Drug Contraindication: N/A - Med Ordered
--- NOTE | 2023-07-28 15:04 | PM.DS ---
DS: Providers Provider Date of Service: 07/28/23 Date of admission: 07/23/23 21:31 Date of discharge: 07/28/23 Primary care physician: Quinten Bain MD DS: Diagnosis Discharge Diagnosis (1) Aspiration pneumonia: Status: Acute DS: Summary Hospital Course Hospital Course: 3-year-old male with pertinent history of zqy-ktcjoxn-jrsojkjxn diabetes mellitus, BPH, unspecified dementia, history of bladder CA, intracranial craniopharyngioma who was brought to the emergency department for evaluation of hypoxemia. Patient is a poor historian due to dementia and does not know why he is in the hospital. He is only oriented to place at the time of my evaluation. As per EMS, patient had an episode of projectile emesis after which she was found to be hypoxemic in the 80s on room air. Unable to obtain review of systems. In the emergency department, patient was found to be septic and imaging with retrocardiac opacity. [facility] Admitted to general medical floor and started on Unasyn. Completed course of Unasyn and was successfully weaned off O2. At this point in time, physical therapy recommends rehab with possible placement. He is medically stable for transport to SNF Time Spent with Patient Time attestation: Total time managing care of this patient today ____ minutes. Discharge coordination time: Greater than 30 minutes Quality: Safe Use of Opioids Does Pt have an Active Cancer Diagnosis on the Problem List?: No Quality: Stroke Does the patient have a stroke diagnosis?: No Physical Exam Vital Signs: Vital Signs: Last Vital Signs Temp 97 F 07/28/23 06:48 Pulse 79 07/28/23 06:48 Resp 18 07/28/23 06:48 BP 152/72 H 07/28/23 06:48 Pulse Ox 94 07/28/23 06:48 O2 Del Method Room Air 07/28/23 06:48 O2 Flow Rate 2 07/27/23 06:55 Oxygen Flow Rate 2 07/23/23 17:07 BMI result Body Mass Index 29.1 Const: Other: Awake alert no acute distress Resp: Other: Clear to auscultation bilaterally no rales rhonchi or wheezes Cardio: Other: No S4; positive S1-S2; no S3 murmurs rubs gallops GI: Other: Soft nontender nondistended normoactive bowel sounds Extrem: Other: No edema bilaterally DS: Data Data Completed and Pending Labs on day of discharge: Laboratory Results - last 24 hr 07/27/23 07/27/23 07/28/23 16:07 20:26 07:01 POC Glucose 129 H 124 H 94 07/28/23 10:59 POC Glucose 129 H Preliminary micro results at discharge 07/23/23 17:53 Blood Culture - Preliminary Blood - Venous No growth after 48 hours. 07/23/23 17:36 Blood Culture - Preliminary Blood - Venous No growth after 48 hours. Discharge Plan Discharge Anticipated Discharge Date/Time: 07/28/23 14:59 Patient Disposition: er [facility] Discharge Diagnosis: Aspiration pneumonia Referrals: isauro felipe [Other] - 1 Week Quinten Bain MD [Primary Care Provider] - 1 Week Discharge Medications: New omeprazole 20 mg Capsule,Delayed Release(Dr/Ec) 20 mg PO BID@0630,1630 Qty: 60 0RF doxycycline hyclate 100 mg tablet 100 mg PO BID 7 Days Qty: 14 0RF Continued (DME) FreeStyle Lite Strips Strip See Rx Instructions .MEDSUPPLY Qty: 100 1RF Rx Instructions: Once a day (DME) lancets Misc See Rx Instructions .MEDSUPPLY Qty: 100 0RF Rx Instructions: As directed Januvia 100 mg tablet 100 mg PO DAILY Qty: 30 0RF metformin 500 mg tablet 500 mg PO BID 90 Days Qty: 180 0RF Trulicity 0.75 mg/0.5 mL pen injector 0.75 mg subcut QWEEK Qty: 2 1RF (DME) Briefs, Adult-Extra Large Misc See Rx Instructions .Route Rx Instructions: As directed (DME) blood-glucose meter Kit See Rx Instructions miscellaneous .MEDSUPPLY Qty: 1 0RF Rx Instructions: As directed finasteride 5 mg tablet 5 mg PO DAILY 90 Days Qty: 90 1RF Rx Instructions: Daily tablet Discharge Orders: Discharge Order (Routine); Ordered 07/28/23 Ordered By: Milton Carballo Diet: Advance to usual diet Activity on Discharge: As tolerated Stand Alone Forms: Patient Portal Discharge page Care Plan Goals: Continue all medicines as outlined in discharge summary. Complete course of doxycycline Health Concerns: Further plans as per receiving facility Plan of Treatment: As above Assessment: See discharge summary
[2023-07-28 15:23] VITALS: BP 159/83; PULSE 80; RESP 18; TEMP 36; O2SAT 93
[2023-07-28 16:20] LABS: Glucose, Whole Blood 118 mg/dL (60-115)
== END 2023-07-28 17:58 | DRG 871 ==
LOC: HO.ED 21:30 → HO.EDOVER 21:36 → HO.S3 07-24 12:33
PROVIDERS: Nurse Practitioner Acute Care; Physician Assistant; Physician Assistant Medical; Admitting Provider Student in an Organized Health Care Education/Training Program; Emergency Provider Emergency Medicine; PCP Internal Medicine; Visit Provider Hospitalist
DX: A41.9 Sepsis, unspecified organism (principal); J69.0 Pneumonitis due to inhalation of food and vomit; J96.01 Acute respiratory failure with hypoxia; N40.0 Benign prostatic hyperplasia without lower urinary tract symptoms; K29.70 Gastritis, unspecified, without bleeding; D44.4 Neoplasm of uncertain behavior of craniopharyngeal duct; E11.65 Type 2 diabetes mellitus with hyperglycemia; F03.90 Unspecified dementia, unspecified severity, without behavioral disturbance, psychotic disturbance, mood disturbance, and anxiety; Z85.51 Personal history of malignant neoplasm of bladder; Z79.84 Long term (current) use of oral hypoglycemic drugs; Z79.899 Other long term (current) drug therapy
CPT/HCPCS: 36415; 70450; 71045; 73562; 73610; 73700; 74018; 74176; 80048; 80053; 80076; 81001; 82947; 83605; 83690; 83735; 84484; 85025; 87040; 87502; 87635; 92526; 92610; 93005; 97162; 97530; 99285; J0295; J0692; J1650; J2405

== ENCOUNTER → 2023-07-23 21:31 | Outpatient (BNV) | payer MEDICARE, SELFPAY | PROVIDERS: Admitting Provider Student in an Organized Health Care Education/Training Program; Emergency Provider Emergency Medicine; PCP Internal Medicine; Visit Provider Student in an Organized Health Care Education/Training Program | DX: J69.0 Pneumonitis due to inhalation of food and vomit (principal) | CPT/HCPCS: 99222; 99232; 99233; 99239 ==

== ENCOUNTER 2023-08-17 07:48 | Outpatient (REF) | payer MEDICARE, OTHER, SELFPAY ==
[2023-08-17 06:22] LABS: MANUAL DIFF FLAG NO
[2023-08-17 07:23] LABS: Anion Gap 12 (12-20); Blood Urea Nitrogen 13 mg/dL (9-16); Calcium 11.2 mg/dL (8.4-10.2); Carbon Dioxide 25 mmol/L (22-29); Chloride 107 mmol/L (96-108); Estimated Glomerular Filt Rate > 60; Glucose Random 132 mg/dL (60-115); Potassium 3.4 mmol/L (3.3-5.1); Sodium 141 mmol/L (135-145)
[2023-08-17 07:24] LABS: Basophils Percent Auto 0.5 % (0-2); Eosinophils Absolute Auto 0.2 X10*3/uL (0.0-0.4); Hemoglobin 14.1 g/dl (14.0-18.0); Imm Gran Abs Auto 0.04 X10*3/uL (0.00-0.03); Imm Gran Pct Auto 0.5 % (0.0-0.4); Lymphocytes Absolute Auto 1.9 X10*3/uL (1.2-4.9); Lymphocytes Percent Auto 24.1 % (20-40); Mean Corpuscular HGB Conc 32.8 g/dl (31.0-36.0); Mean Corpuscular Hemoglobin 30.5 pg (27.0-33.0); Mean Corpuscular Volume 92.9 fL (80.0-98.0); Mean Platelet Volume 10.9 fL (9.4-12.4); Monocytes Absolute Auto 0.6 X10*3/uL (0.1-1.2); Monocytes Percent Auto 7.8 % (2-11); Neutrophils Absolute Auto 5.1 x10*3/uL (2.0-8.3); Neutrophils Percent Auto 64.1 % (45-73); Platelet Count 260 X10*3/uL (160-400); Red Blood Count 4.63 X10*6/uL (4.60-5.80); White Blood Count 7.9 X10*3/uL (4.8-10.8)
== END 2023-08-17 07:49 | disposition home or self-care (01) ==
LOC: HO.MMNH1L 07:48
PROVIDERS: Visit Provider Family Medicine
DX: R09.02 Hypoxemia (principal); G30.9 Alzheimer's disease, unspecified; F02.80 Dementia in other diseases classified elsewhere, unspecified severity, without behavioral disturbance, psychotic disturbance, mood disturbance, and anxiety
CPT/HCPCS: 36415; 80048; 85025

== ENCOUNTER 2023-08-24 06:24 | Outpatient (REF) | payer MEDICARE, SELFPAY ==
[2023-08-24 06:19] LABS: MANUAL DIFF FLAG NO
[2023-08-24 07:04] LABS: Basophils Absolute Auto 0.1 X10*3/uL (0.0-0.2); Basophils Percent Auto 0.6 % (0-2); Eosinophils Absolute Auto 0.3 X10*3/uL (0.0-0.4); Eosinophils Percent Auto 2.6 % (0-4); Hematocrit 43.6 % (42.0-52.0); Hemoglobin 14.3 g/dl (14.0-18.0); Lymphocytes Percent Auto 19.4 % (20-40); Mean Corpuscular HGB Conc 32.8 g/dl (31.0-36.0); Mean Corpuscular Hemoglobin 30.5 pg (27.0-33.0); Mean Platelet Volume 10.2 fL (9.4-12.4); Monocytes Absolute Auto 0.7 X10*3/uL (0.1-1.2); Monocytes Percent Auto 6.4 % (2-11); Neutrophils Absolute Auto 7.3 x10*3/uL (2.0-8.3); Platelet Count 351 X10*3/uL (160-400); Red Blood Count 4.69 X10*6/uL (4.60-5.80); Red Cell Distribution Width 12.9 % (11.0-16.0); White Blood Count 10.4 X10*3/uL (4.8-10.8)
[2023-08-24 07:24] LABS: Anion Gap 13 (12-20); Blood Urea Nitrogen 14 mg/dL (9-16); Calcium 11.5 mg/dL (8.4-10.2); Carbon Dioxide 24 mmol/L (22-29); Chloride 106 mmol/L (96-108); Estimated Glomerular Filt Rate > 60; Glucose Random 126 mg/dL (60-115); Potassium 3.1 mmol/L (3.3-5.1); Sodium 140 mmol/L (135-145)
== END 2023-08-24 06:25 | disposition home or self-care (01) ==
LOC: HO.MMNH1L 06:24
PROVIDERS: Visit Provider Family Medicine
DX: G30.9 Alzheimer's disease, unspecified (principal); R09.02 Hypoxemia
CPT/HCPCS: 36415; 80048; 85025

== ENCOUNTER 2023-08-31 06:50 | Outpatient (REF) | payer MEDICARE, SELFPAY ==
[2023-08-31 06:39] LABS: MANUAL DIFF FLAG NO
[2023-08-31 07:04] LABS: Basophils Absolute Auto 0.1 X10*3/uL (0.0-0.2); Eosinophils Absolute Auto 0.2 X10*3/uL (0.0-0.4); Eosinophils Percent Auto 2.6 % (0-4); Hematocrit 40.9 % (42.0-52.0); Hemoglobin 13.7 g/dl (14.0-18.0); Imm Gran Abs Auto 0.06 X10*3/uL (0.00-0.03); Imm Gran Pct Auto 0.7 % (0.0-0.4); Lymphocytes Absolute Auto 2.1 X10*3/uL (1.2-4.9); Lymphocytes Percent Auto 25.8 % (20-40); Mean Corpuscular HGB Conc 33.5 g/dl (31.0-36.0); Mean Corpuscular Hemoglobin 30.2 pg (27.0-33.0); Mean Corpuscular Volume 90.1 fL (80.0-98.0); Mean Platelet Volume 10.3 fL (9.4-12.4); Monocytes Absolute Auto 0.6 X10*3/uL (0.1-1.2); Monocytes Percent Auto 6.9 % (2-11); Neutrophils Absolute Auto 5.1 x10*3/uL (2.0-8.3); Platelet Count 363 X10*3/uL (160-400); Red Blood Count 4.54 X10*6/uL (4.60-5.80); Red Cell Distribution Width 12.6 % (11.0-16.0); White Blood Count 8.1 X10*3/uL (4.8-10.8)
[2023-08-31 07:39] LABS: Anion Gap 12 (12-20); Blood Urea Nitrogen 11 mg/dL (9-16); Calcium 11.7 mg/dL (8.4-10.2); Carbon Dioxide 25 mmol/L (22-29); Chloride 106 mmol/L (96-108); Estimated Glomerular Filt Rate > 60; Glucose Random 135 mg/dL (60-115); Potassium 3.3 mmol/L (3.3-5.1); Sodium 140 mmol/L (135-145)
== END 2023-08-31 06:51 | disposition home or self-care (01) ==
LOC: HO.MMNH1L 06:50
PROVIDERS: Visit Provider Family Medicine
DX: Z02.2 Encounter for examination for admission to residential institution (principal); R09.02 Hypoxemia; G30.9 Alzheimer's disease, unspecified; F02.80 Dementia in other diseases classified elsewhere, unspecified severity, without behavioral disturbance, psychotic disturbance, mood disturbance, and anxiety
CPT/HCPCS: 36415; 80048; 85025

== ENCOUNTER 2023-09-06 19:01 | Emergency (ER) | payer MEDICARE, MEDICAID, SELFPAY ==
--- NOTE | 2023-09-06 | ECG_ITS ---
Test Reason : FALL Blood Pressure : / mmHG Vent. Rate : 093 BPM Atrial Rate : 093 BPM P-R Int : 238 ms QRS Dur : 130 ms QT Int : 378 ms P-R-T Axes : 093 -68 109 degrees QTc Int : 469 ms Sinus rhythm with 1st degree A-V block Left axis deviation Left bundle branch block Minimal voltage criteria for LVH, may be normal variant ( Mp product ) Abnormal ECG When compared with ECG of 23-JUL-2023 17:57, [place] interval has increased No significant changes seen Referred By: Generic ED Physician Electronically Signed By:IFRAH BERNABE MD
--- NOTE | ~2023-09-06 | CT_ITS ---
EXAMINATION: CT HEAD WITHOUT CONTRAST CT CERVICAL SPINE WITHOUT CONTRAST CLINICAL INFORMATION: Reason for Exam fall COMPARISON: CT of the head done on 07/23/2023 and MRI of the head done on 12/01/2022. TECHNIQUE: Imaging was performed from the skull base to vertex without intravenous administration of contrast. In addition, helical noncontrast CT imaging was acquired through the cervical spine and source images were reviewed along with axial reconstructions and sagittal and coronal MPRs. This CT examination was performed using dose optimization techniques as appropriate, variously including the following: *Automated exposure control. *Adjustment of mA and/or kV according to patient size (this includes techniques or standardized protocols for targeted exams where dose is matched to indication/reason for exam; i.e. extremities or head). *Use of iterative reconstruction technique. 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 Reidentified approximately measures 6 cm at its maximum dimension associated with partial encasement of the proximal part of the middle and anterior cerebral arteries. Note is made of presence of retrocerebellar disease extension within the prepontine cistern. Persistent stable ventriculomegaly is noted, unchanged. No evidence of any superimposed intracranial hemorrhage, or acute infarction. No extra-axial collections are identified. The paranasal sinuses and mastoid air cells are well aerated. CERVICAL SPINE: There is no evidence of acute cervical spine fracture. Vertebral bodies remain normal in height, and alignment is anatomic. Nonspecific straightening of the cervical spine and multilevel moderate degenerative spondylosis related changes are present with most pronounced changes seen at C6-C7. No prevertebral or paravertebral soft tissue abnormality is identified. Limited assessment of the lung apices is unremarkable. CT/CT cervical spine wo IV con IMPRESSION: 1. 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 No CT evidence of any superimposed acute intracranial pathology since the most recent prior CT of the head done on 07/23/2023. 2. No CT evidence of acute cervical spine fracture or traumatic subluxation.
[2023-09-06 19:11] VITALS: BP 148/90; PULSE 88; O2SAT 95
[2023-09-06 19:19] VITALS: BP 129/71; PULSE 86; RESP 14; TEMP 36.7; O2SAT 96; BMI 33.6
--- NOTE | 2023-09-06 20:31 | ED.FALL ---
HPI - Fall General Chief Complaint: Fall Stated Complaint: FALL,HIT HEAD PER EMS Time Seen by Provider: 09/06/23 20:30 Source: patient Mode of arrival: ambulatory Limitations: no limitations History of Present Illness HPI Narrative: Patient has significant dementia with brain mass came from rehab when patient attempted to get out of the bed without calling help left leg slipped and he fell hitting his back of the head to the ground give a superficial abrasion to the top of the head not actively bleeding otherwise patient is at his baseline Related Data Home Medications Medication Instructions Recorded Confirmed diaper,brief,adult,disposable 09/12/21 05/20/23 (Briefs, Adult-Extra Large) Previous Rx's Medication Instructions Recorded blood-glucose meter #1 ea 08/07/22 blood sugar diagnostic (FreeStyle #100 ea 09/18/22 Lite Strips) lancets #100 ea 09/18/22 finasteride 5 mg tablet 5 mg PO DAILY BPH 90 days #90 tabs 04/24/23 metformin 500 mg tablet 500 mg PO BID 90 days #180 tabs 06/23/23 dulaglutide 0.75 mg/0.5 mL 0.75 mg (0.5 mL) subcut QWEEK #2 mL 06/29/23 subcutaneous pen injector (Trulicity) doxycycline hyclate 100 mg tablet 100 mg PO BID 7 days #14 tabs 07/28/23 omeprazole 20 mg capsule,delayed 20 mg PO BID@0630,1630 #60 caps 07/28/23 release sitagliptin phosphate 100 mg 100 mg PO DAILY #30 tabs 09/02/23 tablet (Januvia) Allergies Allergy/AdvReac Type Severity Reaction Status Date / Time Seasonal Allergies Allergy Intermediate Sneezing, Verified 09/06/23 19:29 watery eyes Penicillins [PCN] Allergy Mild Rash Verified 09/06/23 19:29 Review of Systems Review of Systems: Yes all other systems are reviewed and are negative PMF Past Medical History Medical History Cataract Dementia Diabetes mellitus Diverticulosis Bladder cancer Brain tumor Surgical History History of total right knee replacement Hx of colonoscopy Hx of tonsillectomy History of bladder surgery Family History Family History Other Substance use disorder Social History Household Members Other:: 1 Housing: Apartment Are you a primary field care advocate to a significant other at home: No Do you presently have visiting nurse or other home services: No Unable to assess alcohol history related to: Unknown Alcohol intake: never Patient Tobacco Use Status: Never used Tobacco Smoked in Last 30 Days: No e-Cigarette/Vaping Use: Never Used Second Hand Smoke Exposure: No Use of substances other than those prescribed or required for medical reasons: No Substance Use Type: Marijuana Advance Directives: Yes Advance Directives Information Provided: Yes Advance Directives on File: Yes Advance Directives Date on File: 07/28/23 service: No Current occupational status: retired Cognitive needs: Yes (cane) Hearing needs: No Vision needs: Yes (glaases) Physical Exam Vital Signs: Vital Signs: Last Vital Signs Temp 97.4 F 09/06/23 23:24 Pulse 81 09/06/23 23:24 Resp 16 09/06/23 23:24 BP 149/83 H 09/06/23 23:24 Pulse Ox 95 09/06/23 23:24 O2 Del Method Room Air 09/06/23 23:24 BMI result Body Mass Index 33.6 Appearance: Alert. Oriented X1-2. No acute distress. Eyes: PERRLA, No Nystagmus HEENT: Pharynx normal. Oral Mucosa moist small abrasion at the occipital area Neck: Normal inspection. Neck supple. CVS: Normal heart rate and rhythm. Pulses normal. Respiratory: No respiratory distress. Equal air entry bilateral, no wheezing/rales/rhonchi Abdomen: Soft and nontender. Bowel sounds are present, Skin: Skin warm and dry. Normal skin color. Normal skin turgor. Extremities: No lower extremity edema. No calf tenderness pelvis stable nontender hips Neuro: Oriented X 1-2 No motor deficit. Medical Decision Making Medical Decision Making MDM Narrative: Patient was mechanical fall CT head and CT C-spine negative acute will discharge patient back to retirement Lab Data MDM Lab Attestation statement: I reviewed the patient's lab results. Labs: Lab Results 09/06/23 Range/Units 23:22 POC Glucose 194 H (60-115) mg/dL Independent Interpretation I performed an independent interpretation of an: CT Scan Radiology Impression Discussion of test interpretation with radiology: I have reviewed the radiologist's reading. Radiologist Impression: CT/CT head/brain wo IV con IMPRESSION: 1. 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 No CT evidence of any superimposed acute intracranial pathology since the most recent prior CT of the head done on 07/23/2023. 2. No CT evidence of acute cervical spine fracture or traumatic subluxation. Discharge Plan Discharge Clinical Impression: Minor closed head injury, Fall Patient Disposition: Xfer SNF Transfer Details: CT scan of the head and C-spine negative for acute, care and cautions as advised Instructions: Fall Prevention for Older Adults (ED), Head Injury (ED) Additional Instructions: Care and cautions as advised Prescriptions: No Action (DME) FreeStyle Lite Strips Strip See Rx Instructions .MEDSUPPLY Qty: 100 1RF Rx Instructions: Once a day (DME) lancets Misc See Rx Instructions .MEDSUPPLY Qty: 100 0RF Rx Instructions: As directed metformin 500 mg tablet 500 mg PO BID 90 Days Qty: 180 0RF Trulicity 0.75 mg/0.5 mL pen injector 0.75 mg subcut QWEEK Qty: 2 1RF Januvia 100 mg tablet 100 mg PO DAILY Qty: 30 0RF omeprazole 20 mg Capsule,Delayed Release(Dr/Ec) 20 mg PO BID@0630,1630 Qty: 60 0RF doxycycline hyclate 100 mg tablet 100 mg PO BID 7 Days Qty: 14 0RF (DME) Briefs, Adult-Extra Large Misc See Rx Instructions .Route Rx Instructions: As directed (DME) blood-glucose meter Kit See Rx Instructions miscellaneous .MEDSUPPLY Qty: 1 0RF Rx Instructions: As directed finasteride 5 mg tablet 5 mg PO DAILY 90 Days Qty: 90 1RF Rx Instructions: Daily tablet Interventions: ED Discharge Assessment Last Done: 09/07/23 00:24 Discharge Date/Time: 09/07/23 00:52
[2023-09-06 20:34] VITALS: BP 150/73; PULSE 94; RESP 20; TEMP 36.6; O2SAT 94
--- NOTE | 2023-09-06 20:45 | MHC.EDTECH ---
Patient biba from SNF ,ekg taken and was read by Provider ,vitals done ,and Patient was incontinent of urine ,care given and all extra blankets remove from underneath Patient ,Patient daughter at bed side ,Patient is comfortable ,no apparent distress noted ,will continue to monitor .
[2023-09-06 22:11] VITALS: BP 133/76; PULSE 91; RESP 16; TEMP 36.8; O2SAT 97
--- NOTE | 2023-09-06 22:47 | PC.NURSE ---
Daughter (nohelia) at bedside and updated with plan of care.
[2023-09-06 23:24] VITALS: BP 149/83; PULSE 81; RESP 16; TEMP 36.3; O2SAT 95
--- NOTE | 2023-09-06 23:37 | MHC.EDTECH ---
call out to chandra at [phone] to book transport back to rehab, estimated eta given was [phone]
--- NOTE | 2023-09-07 00:23 | PC.NURSE ---
Daughter Roix updated on Pt dispo. Report given to Adri at [facility], awaiting for ambulance to transport.
[2023-09-07 01:03] LABS: Glucose, Whole Blood 194 mg/dL (60-115)
== END 2023-09-07 00:52 | disposition skilled nursing facility (03) ==
PROVIDERS: Emergency Provider Internal Medicine; PCP Internal Medicine
DX: S09.90XA Unspecified injury of head, initial encounter (principal); F03.90 Unspecified dementia, unspecified severity, without behavioral disturbance, psychotic disturbance, mood disturbance, and anxiety; R51.9 Headache, unspecified; M54.2 Cervicalgia; I44.7 Left bundle-branch block, unspecified; R94.31 Abnormal electrocardiogram [ECG] [EKG]; W06.XXXA Fall from bed, initial encounter; Y93.9 Activity, unspecified; Y92.9 Unspecified place or not applicable; Y99.9 Unspecified external cause status; Z79.899 Other long term (current) drug therapy
CPT/HCPCS: 70450; 72125; 82947; 93005; 99284

== ENCOUNTER 2023-09-07 06:25 | Outpatient (REF) | payer MEDICARE, MEDICAID, SELFPAY ==
[2023-09-07 06:12] LABS: MANUAL DIFF FLAG NO
[2023-09-07 07:02] LABS: Basophils Percent Auto 0.5 % (0-2); Eosinophils Absolute Auto 0.3 X10*3/uL (0.0-0.4); Eosinophils Percent Auto 3.9 % (0-4); Hematocrit 43.5 % (42.0-52.0); Hemoglobin 14.4 g/dl (14.0-18.0); Imm Gran Abs Auto 0.05 X10*3/uL (0.00-0.03); Imm Gran Pct Auto 0.7 % (0.0-0.4); Lymphocytes Percent Auto 26.7 % (20-40); Mean Corpuscular HGB Conc 33.1 g/dl (31.0-36.0); Mean Corpuscular Hemoglobin 29.9 pg (27.0-33.0); Mean Corpuscular Volume 90.2 fL (80.0-98.0); Mean Platelet Volume 10.5 fL (9.4-12.4); Monocytes Absolute Auto 0.6 X10*3/uL (0.1-1.2); Monocytes Percent Auto 7.9 % (2-11); Neutrophils Absolute Auto 4.6 x10*3/uL (2.0-8.3); Neutrophils Percent Auto 60.3 % (45-73); Platelet Count 351 X10*3/uL (160-400); Red Blood Count 4.82 X10*6/uL (4.60-5.80); Red Cell Distribution Width 13.1 % (11.0-16.0); White Blood Count 7.6 X10*3/uL (4.8-10.8)
[2023-09-07 07:30] LABS: Anion Gap 11 (12-20); Blood Urea Nitrogen 13 mg/dL (9-16); Calcium 11.6 mg/dL (8.4-10.2); Carbon Dioxide 27 mmol/L (22-29); Chloride 106 mmol/L (96-108); Estimated Glomerular Filt Rate > 60; Glucose Random 148 mg/dL (60-115); Potassium 3.3 mmol/L (3.3-5.1); Sodium 141 mmol/L (135-145)
== END 2023-09-07 06:26 | disposition home or self-care (01) ==
LOC: HO.MMNH1L 06:25
PROVIDERS: Visit Provider Family Medicine
DX: Z02.2 Encounter for examination for admission to residential institution (principal); G30.9 Alzheimer's disease, unspecified; F02.80 Dementia in other diseases classified elsewhere, unspecified severity, without behavioral disturbance, psychotic disturbance, mood disturbance, and anxiety
CPT/HCPCS: 36415; 80048; 85025

== ENCOUNTER 2023-09-14 07:25 | Outpatient (REF) | payer MEDICARE, MEDICAID, SELFPAY ==
[2023-09-14 06:08] LABS: MANUAL DIFF FLAG NO
[2023-09-14 06:57] LABS: Basophils Absolute Auto 0.1 X10*3/uL (0.0-0.2); Basophils Percent Auto 0.5 % (0-2); Eosinophils Absolute Auto 0.3 X10*3/uL (0.0-0.4); Eosinophils Percent Auto 2.3 % (0-4); Hematocrit 42.3 % (42.0-52.0); Hemoglobin 14.4 g/dl (14.0-18.0); Imm Gran Abs Auto 0.08 X10*3/uL (0.00-0.03); Imm Gran Pct Auto 0.6 % (0.0-0.4); Lymphocytes Absolute Auto 2.2 X10*3/uL (1.2-4.9); Lymphocytes Percent Auto 17.6 % (20-40); Mean Corpuscular Hemoglobin 31.2 pg (27.0-33.0); Mean Corpuscular Volume 91.6 fL (80.0-98.0); Mean Platelet Volume 10.8 fL (9.4-12.4); Monocytes Absolute Auto 0.9 X10*3/uL (0.1-1.2); Monocytes Percent Auto 7.2 % (2-11); Neutrophils Absolute Auto 8.9 x10*3/uL (2.0-8.3); Neutrophils Percent Auto 71.8 % (45-73); Platelet Count 288 X10*3/uL (160-400); Red Blood Count 4.62 X10*6/uL (4.60-5.80); Red Cell Distribution Width 13.3 % (11.0-16.0); White Blood Count 12.4 X10*3/uL (4.8-10.8)
[2023-09-14 07:28] LABS: Anion Gap 12 (12-20); Blood Urea Nitrogen 14 mg/dL (9-16); Calcium 11.2 mg/dL (8.4-10.2); Carbon Dioxide 23 mmol/L (22-29); Chloride 106 mmol/L (96-108); Estimated Glomerular Filt Rate > 60; Glucose Random 175 mg/dL (60-115); Potassium 3.4 mmol/L (3.3-5.1); Sodium 138 mmol/L (135-145)
== END 2023-09-14 07:26 | disposition home or self-care (01) ==
LOC: HO.MMNH1L 07:25
PROVIDERS: Visit Provider Family Medicine
DX: Z02.2 Encounter for examination for admission to residential institution (principal); G30.9 Alzheimer's disease, unspecified; F02.80 Dementia in other diseases classified elsewhere, unspecified severity, without behavioral disturbance, psychotic disturbance, mood disturbance, and anxiety
CPT/HCPCS: 36415; 80048; 85025

== ENCOUNTER 2023-09-21 07:17 | Outpatient (REF) | payer MEDICARE, MEDICAID, SELFPAY ==
[2023-09-21 06:04] LABS: MANUAL DIFF FLAG NO
[2023-09-21 06:27] LABS: Basophils Percent Auto 0.5 % (0-2); Eosinophils Absolute Auto 0.3 X10*3/uL (0.0-0.4); Eosinophils Percent Auto 4.1 % (0-4); Hematocrit 42.4 % (42.0-52.0); Hemoglobin 14.2 g/dl (14.0-18.0); Imm Gran Abs Auto 0.04 X10*3/uL (0.00-0.03); Imm Gran Pct Auto 0.5 % (0.0-0.4); Lymphocytes Absolute Auto 2.4 X10*3/uL (1.2-4.9); Mean Corpuscular HGB Conc 33.5 g/dl (31.0-36.0); Mean Corpuscular Hemoglobin 30.1 pg (27.0-33.0); Mean Platelet Volume 10.6 fL (9.4-12.4); Monocytes Absolute Auto 0.5 X10*3/uL (0.1-1.2); Monocytes Percent Auto 6.6 % (2-11); Neutrophils Absolute Auto 4.9 x10*3/uL (2.0-8.3); Neutrophils Percent Auto 59.3 % (45-73); Platelet Count 277 X10*3/uL (160-400); Red Blood Count 4.71 X10*6/uL (4.60-5.80); Red Cell Distribution Width 13.2 % (11.0-16.0); White Blood Count 8.2 X10*3/uL (4.8-10.8)
[2023-09-21 07:02] LABS: Anion Gap 14 (12-20); Blood Urea Nitrogen 11 mg/dL (9-16); Carbon Dioxide 22 mmol/L (22-29); Chloride 108 mmol/L (96-108); Estimated Glomerular Filt Rate > 60; Glucose Random 141 mg/dL (60-115); Potassium 3.4 mmol/L (3.3-5.1); Sodium 141 mmol/L (135-145)
== END 2023-09-21 07:18 | disposition home or self-care (01) ==
LOC: HO.MMNH1L 07:17
PROVIDERS: Visit Provider Family Medicine
DX: Z02.2 Encounter for examination for admission to residential institution (principal); R09.02 Hypoxemia; G30.9 Alzheimer's disease, unspecified; F02.80 Dementia in other diseases classified elsewhere, unspecified severity, without behavioral disturbance, psychotic disturbance, mood disturbance, and anxiety
CPT/HCPCS: 36415; 80048; 85025

== ENCOUNTER 2023-09-28 06:28 | Outpatient (REF) | payer MEDICARE, MEDICAID, SELFPAY ==
[2023-09-28 06:03] LABS: MANUAL DIFF FLAG NO
[2023-09-28 06:54] LABS: Basophils Absolute Auto 0.1 X10*3/uL (0.0-0.2); Basophils Percent Auto 0.7 % (0-2); Eosinophils Absolute Auto 0.4 X10*3/uL (0.0-0.4); Hemoglobin 14.5 g/dl (14.0-18.0); Imm Gran Abs Auto 0.06 X10*3/uL (0.00-0.03); Imm Gran Pct Auto 0.7 % (0.0-0.4); Lymphocytes Absolute Auto 2.1 X10*3/uL (1.2-4.9); Lymphocytes Percent Auto 24.3 % (20-40); Mean Corpuscular Hemoglobin 30.1 pg (27.0-33.0); Mean Corpuscular Volume 91.3 fL (80.0-98.0); Mean Platelet Volume 10.8 fL (9.4-12.4); Monocytes Absolute Auto 0.6 X10*3/uL (0.1-1.2); Monocytes Percent Auto 6.9 % (2-11); Neutrophils Absolute Auto 5.5 x10*3/uL (2.0-8.3); Neutrophils Percent Auto 63.4 % (45-73); Platelet Count 264 X10*3/uL (160-400); Red Blood Count 4.82 X10*6/uL (4.60-5.80); Red Cell Distribution Width 13.4 % (11.0-16.0); White Blood Count 8.7 X10*3/uL (4.8-10.8)
[2023-09-28 07:04] LABS: Anion Gap 13 (12-20); Blood Urea Nitrogen 11 mg/dL (9-16); Calcium 11.1 mg/dL (8.4-10.2); Carbon Dioxide 25 mmol/L (22-29); Chloride 107 mmol/L (96-108); Estimated Glomerular Filt Rate > 60; Glucose Random 124 mg/dL (60-115); Potassium 3.4 mmol/L (3.3-5.1); Sodium 142 mmol/L (135-145)
== END 2023-09-28 06:29 | disposition home or self-care (01) ==
LOC: HO.MMNH1L 06:28
PROVIDERS: Visit Provider Family Medicine
DX: Z00.00 Encounter for general adult medical examination without abnormal findings (principal); R09.02 Hypoxemia; G30.9 Alzheimer's disease, unspecified; F02.80 Dementia in other diseases classified elsewhere, unspecified severity, without behavioral disturbance, psychotic disturbance, mood disturbance, and anxiety
CPT/HCPCS: 36415; 80048; 85025

== ENCOUNTER 2023-10-06 06:36 | Outpatient (REF) | payer MEDICARE, MEDICAID, SELFPAY ==
[2023-10-06 06:14] LABS: MANUAL DIFF FLAG NO
[2023-10-06 06:54] LABS: Basophils Absolute Auto 0.1 X10*3/uL (0.0-0.2); Basophils Percent Auto 0.8 % (0-2); Eosinophils Absolute Auto 0.5 X10*3/uL (0.0-0.4); Eosinophils Percent Auto 5.9 % (0-4); Hematocrit 46.2 % (42.0-52.0); Hemoglobin 15.2 g/dl (14.0-18.0); Imm Gran Abs Auto 0.05 X10*3/uL (0.00-0.03); Imm Gran Pct Auto 0.6 % (0.0-0.4); Lymphocytes Absolute Auto 1.8 X10*3/uL (1.2-4.9); Lymphocytes Percent Auto 20.1 % (20-40); Mean Corpuscular HGB Conc 32.9 g/dl (31.0-36.0); Mean Corpuscular Hemoglobin 29.9 pg (27.0-33.0); Mean Corpuscular Volume 90.8 fL (80.0-98.0); Mean Platelet Volume 10.8 fL (9.4-12.4); Monocytes Absolute Auto 0.6 X10*3/uL (0.1-1.2); Monocytes Percent Auto 6.5 % (2-11); Neutrophils Absolute Auto 5.8 x10*3/uL (2.0-8.3); Neutrophils Percent Auto 66.1 % (45-73); Platelet Count 285 X10*3/uL (160-400); Red Blood Count 5.09 X10*6/uL (4.60-5.80); Red Cell Distribution Width 13.8 % (11.0-16.0); White Blood Count 8.7 X10*3/uL (4.8-10.8)
[2023-10-06 07:14] LABS: Anion Gap 13 (12-20); Blood Urea Nitrogen 22 mg/dL (9-16); Calcium 11.3 mg/dL (8.4-10.2); Carbon Dioxide 20 mmol/L (22-29); Chloride 112 mmol/L (96-108); Estimated Glomerular Filt Rate > 60; Glucose Random 142 mg/dL (60-115); Potassium 3.4 mmol/L (3.3-5.1); Sodium 142 mmol/L (135-145)
== END 2023-10-06 06:37 | disposition home or self-care (01) ==
LOC: HO.MMNH1L 06:36
PROVIDERS: Visit Provider Family Medicine
DX: Z02.2 Encounter for examination for admission to residential institution (principal); R09.02 Hypoxemia; G30.9 Alzheimer's disease, unspecified; F02.80 Dementia in other diseases classified elsewhere, unspecified severity, without behavioral disturbance, psychotic disturbance, mood disturbance, and anxiety
CPT/HCPCS: 36415; 80048; 85025

== ENCOUNTER 2023-10-13 06:29 | Outpatient (REF) | payer MEDICARE, MEDICAID, SELFPAY ==
[2023-10-13 06:11] LABS: MANUAL DIFF FLAG NO
[2023-10-13 06:28] LABS: Basophils Absolute Auto 0.1 X10*3/uL (0.0-0.2); Basophils Percent Auto 0.6 % (0-2); Eosinophils Absolute Auto 0.4 X10*3/uL (0.0-0.4); Hematocrit 45.3 % (42.0-52.0); Imm Gran Abs Auto 0.07 X10*3/uL (0.00-0.03); Imm Gran Pct Auto 0.7 % (0.0-0.4); Lymphocytes Absolute Auto 2.5 X10*3/uL (1.2-4.9); Lymphocytes Percent Auto 25.3 % (20-40); Mean Corpuscular HGB Conc 33.1 g/dl (31.0-36.0); Mean Corpuscular Hemoglobin 30.3 pg (27.0-33.0); Mean Corpuscular Volume 91.5 fL (80.0-98.0); Mean Platelet Volume 10.8 fL (9.4-12.4); Monocytes Absolute Auto 0.5 X10*3/uL (0.1-1.2); Monocytes Percent Auto 5.3 % (2-11); Neutrophils Absolute Auto 6.4 x10*3/uL (2.0-8.3); Neutrophils Percent Auto 64.1 % (45-73); Platelet Count 279 X10*3/uL (160-400); Red Blood Count 4.95 X10*6/uL (4.60-5.80); Red Cell Distribution Width 13.8 % (11.0-16.0); White Blood Count 9.9 X10*3/uL (4.8-10.8)
[2023-10-13 07:47] LABS: Anion Gap 18 (12-20); Blood Urea Nitrogen 18 mg/dL (9-16); Calcium 11.1 mg/dL (8.4-10.2); Carbon Dioxide 25 mmol/L (22-29); Chloride 105 mmol/L (96-108); Estimated Glomerular Filt Rate > 60; Glucose Random 154 mg/dL (60-115); Potassium 3.7 mmol/L (3.3-5.1); Sodium 144 mmol/L (135-145)
== END 2023-10-13 06:30 | disposition home or self-care (01) ==
LOC: HO.MMNH1L 06:29
PROVIDERS: Visit Provider Family Medicine
DX: R09.02 Hypoxemia (principal); G30.9 Alzheimer's disease, unspecified; F02.80 Dementia in other diseases classified elsewhere, unspecified severity, without behavioral disturbance, psychotic disturbance, mood disturbance, and anxiety
CPT/HCPCS: 36415; 80048; 85025

== ENCOUNTER 2023-10-19 10:42 | Outpatient (REF) | payer MEDICARE, MEDICAID, SELFPAY | END 2023-10-19 10:43 | disposition home or self-care (01) | LOC: HO.MMNH1L 10:42 | PROVIDERS: Visit Provider Family Medicine | DX: Z00.00 Encounter for general adult medical examination without abnormal findings (principal); R09.02 Hypoxemia; G30.9 Alzheimer's disease, unspecified; F02.80 Dementia in other diseases classified elsewhere, unspecified severity, without behavioral disturbance, psychotic disturbance, mood disturbance, and anxiety | CPT/HCPCS: 36415; 80048; 85025 ==

== ENCOUNTER 2023-10-26 07:19 | Outpatient (REF) | payer MEDICARE, MEDICAID, SELFPAY | END 2023-10-26 07:20 | disposition home or self-care (01) | LOC: HO.MMNH1L 07:19 | PROVIDERS: Visit Provider Family Medicine | DX: Z13.89 Encounter for screening for other disorder (principal) ==

== ENCOUNTER 2023-11-02 23:11 | Emergency (ER) | payer MEDICARE, MEDICAID, SELFPAY ==
[2023-11-02 23:20] VITALS: BP 129/74; PULSE 86; RESP 16; TEMP 36.6; O2SAT 93
[2023-11-02 23:24] VITALS: BP 129/74; BP 138/82; PULSE 86; PULSE 90; RESP 16; O2SAT 96; BMI 30.4
--- NOTE | 2023-11-02 23:26 | ECG_ITS ---
Test Reason : ALTERED MENTAL STATUS Blood Pressure : / mmHG Vent. Rate : 087 BPM Atrial Rate : 087 BPM P-R Int : 240 ms QRS Dur : 136 ms QT Int : 406 ms P-R-T Axes : 083 -61 104 degrees QTc Int : 488 ms Sinus rhythm with 1st degree A-V block Left axis deviation Left bundle branch block Abnormal ECG When compared with ECG of 06-SEP-2023 20:34, No significant changes seen Referred By: Carolyn Lerma Electronically Signed By:Zak Han
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
[2023-11-03 00:01] LABS: Basophils Absolute Auto 0.1 X10*3/uL (0.0-0.2); Eosinophils Absolute Auto 0.4 X10*3/uL (0.0-0.4); Eosinophils Percent Auto 4.6 % (0-4); Hematocrit 43.5 % (42.0-52.0); Hemoglobin 14.5 g/dl (14.0-18.0); Imm Gran Abs Auto 0.05 X10*3/uL (0.00-0.03); Imm Gran Pct Auto 0.6 % (0.0-0.4); Lymphocytes Absolute Auto 2.5 X10*3/uL (1.2-4.9); MANUAL DIFF FLAG NO; Mean Corpuscular HGB Conc 33.3 g/dl (31.0-36.0); Mean Corpuscular Hemoglobin 29.8 pg (27.0-33.0); Mean Corpuscular Volume 89.3 fL (80.0-98.0); Mean Platelet Volume 9.5 fL (9.4-12.4); Monocytes Absolute Auto 0.6 X10*3/uL (0.1-1.2); Monocytes Percent Auto 6.9 % (2-11); Neutrophils Absolute Auto 4.8 x10*3/uL (2.0-8.3); Neutrophils Percent Auto 56.9 % (45-73); Platelet Count 292 X10*3/uL (160-400); Red Blood Count 4.87 X10*6/uL (4.60-5.80); Red Cell Distribution Width 13.8 % (11.0-16.0); White Blood Count 8.4 X10*3/uL (4.8-10.8)
[2023-11-03 00:14] LABS: COVID-19 Test Negative (Negative); IDNOW Serial# 152EDE1D
[2023-11-03 00:15] LABS: Alanine Aminotransferase 17 U/L (0-40); Albumin Level 3.4 g/dL (3.5-5.0); Alkaline Phosphatase 83 U/L (39-117); Anion Gap 13 (12-20); Aspartate Amino Transferase 13 U/L (5-37); Bilirubin Direct 0.2 mg/dL (0.0-0.5); Bilirubin Total 0.7 mg/dL (0.0-1.0); Blood Urea Nitrogen 18 mg/dL (9-16); Calcium 10.7 mg/dL (8.4-10.2); Carbon Dioxide 24 mmol/L (22-29); Chloride 109 mmol/L (96-108); Creatinine Clr Calc Pharmacy 82.6; Estimated Glomerular Filt Rate > 60; Glucose Random 157 mg/dL (60-115); Magnesium 1.9 mg/dL (1.6-2.6); Potassium 3.6 mmol/L (3.3-5.1); Sodium 142 mmol/L (135-145); Total Protein 6.2 g/dL (6.5-8.0)
--- NOTE | 2023-11-03 01:04 | PC.NURSE ---
Pt resting in bed, given water and a sandwich, per request.
--- NOTE | 2023-11-03 05:15 | PC.NURSE ---
Pt was changed and given clean linen. Pt stated he had to use the bathroom. Per pt, he walks at home. I attempted to stand the pt but pt is very weak and was unable to hold himself up. Pt was assisted back into bed, stated he didn't have to pee anymore. Pt has not voided while being here. Pt was positioned in bed, pillow and blanket given.
[2023-11-03 06:07] VITALS: BP 114/75; PULSE 64; RESP 18; TEMP 37.1; O2SAT 95
--- NOTE | 2023-11-03 08:08 | MHC.CARE ---
CARE Team notified discharge rn, urine pending prior to assessment.
--- NOTE | 2023-11-03 09:20 | PHA.MEDREC ---
Pharmacy Consult ? Medication Reconciliation Pharmacy has completed the medication reconciliation.List obtained from [facility] ( [facility])
[2023-11-03 10:14] LABS: Appearance Urine Clear; Color Urine Yellow; Glucose Urine UA Negative (Negative); Leukocyte Esterase Urine Negative (Negative); Nitrite Urine Negative (Negative); PH 5.5 (5.0-9.0); Urine Blood Negative (Negative); Urine Ketones Trace mg/dL (Negative); Urine Protein Negative (Neg-Trace)
[2023-11-03 10:23] LABS: Amphetamine Screen Urine Not Detected (Not Detect); Barbiturates, Urine Not Detected (Not Detect); Benzodiazepines Screen Urine Not Detected (Not Detect); Cannabinoid Screen Urine Not Detected (Not Detect); Cocaine Screen Urine Not Detected (Not Detect); Fentanyl, urine Not Detected (Not Detect); Opiate Screen Urine Not Detected (Not Detect); Phencyclidine Screen Urine Not Detected (Not Detect)
--- NOTE | 2023-11-03 12:03 | PC.NURSE ---
late entry: assumed care of pt at 0700. pt awake and alert. knows the year but sts we are in his living room. pt ate breakfast independently. attempted to obtain a urine sample via urinal multiple times on previous shift with no success. pt bladder scanned with over 500ml of urine. pt given urinal to try to obtain a last time, no success. pt straight cathed per GALINA Null. pt tolerated well. 500ml of tea colored urine immediately drained. post void bladder scan scheduled for 1230. pt watching tv, call paz within reach. plan of care ongoing.
[2023-11-03 12:15] VITALS: BP 135/70; PULSE 79; RESP 16; TEMP 36.6; O2SAT 95
--- NOTE | 2023-11-03 13:34 | MHC.CARE ---
left message with Xi Odom, whom t/w was transferred to, requesting call back to discuss questions about patient.
--- NOTE | 2023-11-03 14:06 | PC.NURSE ---
pt daughter, Roxi at bedside. pt ate lunch. currently resting quietly watching tv. call paz within reach. plan of care ongoing.
[2023-11-03 14:39] VITALS: BP 147/67; PULSE 81; RESP 16; TEMP 36.7; O2SAT 95
--- NOTE | 2023-11-03 16:17 | MHC.CM.ED ---
Pt seen by CARE team. Plan for IPLOC vs medications/return to [facility]. Psych consult pending for disposition. CM services not needed at this time. Will follow for any CM needs.
--- NOTE | 2023-11-03 17:44 | PC.NURSE ---
pt bladder scan by tech, 269ml.
[2023-11-03] MEDS: metFORMIN HCl 500 MG TABLET PO (18:09)
--- NOTE | 2023-11-03 19:01 | PC.NURSE ---
t/w spoke with MELISA Chaudhari who stated pt is likely to have a medication change and send back to [facility] tomorrow. pt ate dinner independently. medicated per dec. report given to overflow RN. awaiting transport.
[2023-11-03 20:25] VITALS: BP 144/78; PULSE 80; TEMP 36.6; O2SAT 95
--- NOTE | 2023-11-04 04:02 | PC.NURSE ---
pt incontinent of large amount of urine at 0400. Post residual bladder scan 48cc.
[2023-11-04 06:00] VITALS: BP 148/73; PULSE 69; RESP 15; TEMP 36.7; O2SAT 96
[2023-11-04] MEDS: Omeprazole 20 MG CAPSULE.DR PO (06:01)
[2023-11-04] MEDS: metFORMIN HCl 500 MG TABLET PO ×2 (08:11→18:17)
[2023-11-04] MEDS: SITagliptin Phosphate 100 MG TABLET PO (08:11)
[2023-11-04] MEDS: Finasteride 5 MG TABLET PO (08:11)
--- NOTE | 2023-11-04 12:40 | MHC.CARE ---
Connected to the RN station, , who report that admissions nursing will call back once they've determined whether there is an appropriate room/ bed for the patient to discharge back to
--- NOTE | 2023-11-04 12:57 | PC.NURSE ---
PT ATE 100% OF LUNCH
--- NOTE | 2023-11-04 12:59 | PC.NURSE ---
PT SEEN BY CARE TEAM, PT AWARE OF PLAN OF CARE.
[2023-11-04 13:54] VITALS: BP 139/77; PULSE 94; RESP 16; TEMP 36.4; O2SAT 95
--- NOTE | 2023-11-04 14:29 | MHC.CARE ---
Sherron at [facility] called back, . She reports that they will take patient back tomorrow once they?ve received the care team and psychiatry notes. They needed to move some rooms around to accommodate his return.
--- NOTE | 2023-11-04 14:46 | P.CNPS_ITS ---
History of Present Illness Date of Service: 11/04/2023 Chief Complaint: DEMENTIA, AGGRESSION WITH SNF STAFF Discussed with referring provider: Yes Sources of Information: patient interviewed, chart reviewed and crisis/core team assessment reviewed HPI Narrative: Mr. Tyler is a 73 year-old male with dementia. He was sent from [facility] due to increase irritability, aggressive behaviors towards staff. In the ED, pt oriented to place, not to situation. He does know the month but does not know the year. He appears disheveled. Seems to be ambulating with assistance but not independently. He denies SI/HI. He does not appear internally preoccupied. He does not report overt delusional content. He does appear at times to be confabulating. No behavioral concerns here in the ED. [facility] Medical History Cataract Dementia Diabetes mellitus Diverticulosis Bladder cancer Brain tumor Surgical History History of total right knee replacement Hx of colonoscopy Hx of tonsillectomy History of bladder surgery Diagnostics Vital Signs (24Hr): Vital Signs - 24 hr 11/03/23 20:25 11/04/23 06:00 11/04/23 13:54 Temperature 97.8 F 98.0 F 97.5 F Pulse Rate 80 69 94 Respiratory Rate 15 16 Blood Pressure 144/78 H 148/73 H 139/77 Pulse Oximetry 95 96 95 Oxygen Delivery Method Room Air Room Air Room Air BMI result Body Mass Index 30.4 Labs 11/02/23 23:55 11/02/23 23:55 Labs: Laboratory Results - last 48 hr 11/02/23 11/03/23 11/03/23 23:55 10:04 10:06 WBC 8.4 RBC 4.87 Hgb 14.5 Hct 43.5 MCV 89.3 MCH 29.8 MCHC 33.3 RDW 13.8 Plt Count 292 MPV 9.5 Immature Gran % (Auto) 0.6 H Neut % (Auto) 56.9 Lymph % (Auto) 30.0 Hall % (Auto) 6.9 Eos % (Auto) 4.6 H Baso % (Auto) 1.0 Lymph # (Auto) 2.5 Hall # (Auto) 0.6 Eos # (Auto) 0.4 Baso # (Auto) 0.1 Abs Immat Gran (auto) 0.05 H Absolute Neuts (auto) 4.8 Absolute Nucleated RBC 0.000 Nucleated RBC % (auto) 0.0 Sodium 142 Potassium 3.6 Chloride 109 H Carbon Dioxide 24 Anion Gap 13 BUN 18 H Creatinine 0.83 Estim Creat Clear Calc 82.6 Estimated GFR > 60 Random Glucose 157 H Calcium 10.7 H Magnesium 1.9 Total Bilirubin 0.7 Direct Bilirubin 0.2 AST 13 ALT 17 Alkaline Phosphatase 83 Total Protein 6.2 L Albumin 3.4 L Urine Color Yellow Urine Appearance Clear Urine pH 5.5 Ur Specific [place] 1.020 Urine Protein Negative Urine Glucose (UA) Negative Urine Ketones Trace Urine Blood Negative Urine Nitrite Negative Ur Leukocyte Esterase Negative Urine Opiates Screen Not Detected Urine Fentanyl Screen Not Detected Ur Barbiturates Screen Not Detected Ur Phencyclidine Scrn Not Detected Ur Amphetamines Screen Not Detected U Benzodiazepines Scrn Not Detected Urine Cocaine Screen Not Detected U Marijuana (THC) Screen Not Detected COVID-19 (DARLENE) Negative COVID-19 Clin Com See Note Mental Status Exam Mental Status Exam Narrative: Appearance: long unkept hair and bear, in NAD Behavior: cooperative Psychomotor: no agitation or retardation noted Speech: mostly clear, normal rate.rhythm/volume, spontaneous TP: mostly single words, no loose associations TC: feeling tired Mood: good Affect: congruent SI: denies HI: denies VH/AH: none Delusions: none Insight/judgment: impaired x 2. Memory/cg: alert, oriented to place, not situation, month but not date nor year Medications Medications Current Medications Acetaminophen (Acetaminophen 325 Mg Tablet) 650 mg PO Q8H PRN PRN Reason: fever/pain Al Hydroxide/Mg Hydroxide (Magnesium Hydrox/Alum Hydrox 30 Ml Oral.Susp) 30 ml PO Q4H PRN PRN Reason: Constipation Bisacodyl (Bisacodyl 10 Mg Supp.Rect) 10 mg IA Q3D PRN PRN Reason: Constipation Diphenhydramine HCl (Diphenhydramine Hcl 25 Mg Capsule) 25 mg PO Q6H PRN PRN Reason: pruitis Finasteride (Finasteride 5 Mg Tablet) 5 mg PO DAILY [facility] Last Admin: 11/04/23 08:11 Dose: 5 mg Magnesium Hydroxide (Milk Of Magnesia 30 Ml Oral.Susp) 30 ml PO DAILY PRN PRN Reason: Constipation Metformin HCl (Metformin Hcl 500 Mg Tablet) 500 mg PO BIDWM [facility] Last Admin: 11/04/23 08:11 Dose: 500 mg Omeprazole (Omeprazole 20 Mg Capsule.) 20 mg PO DAILY@0630 [facility] Last Admin: 11/04/23 06:01 Dose: 20 mg Sitagliptin Phosphate (Sitagliptin Phosphate 100 Mg Tablet) 100 mg PO DAILY [facility] Last Admin: 11/04/23 08:11 Dose: 100 mg Allergies Allergies Allergy/AdvReac Type Severity Reaction Status Date / Time Seasonal Allergies Allergy Intermediate Sneezing, Verified 11/02/23 23:38 watery eyes Penicillins [PCN] Allergy Mild Rash Verified 11/02/23 23:38 Assessment & Plan Assessment & Plan (1) Major neurocognitive disorder: Status: Acute Code(s): F03.90 - Unspecified dementia, unspecified severity, without behavioral disturbance, psychotic disturbance, mood disturbance, and anxiety Plan Mr. Tyler is a 73 year-old male with dementia of mixed etiologies. Pt was sent from [facility] due to increase irritable and aggressive behaviors. Mobility is limited. No aggression here in the hospital. I would recommend trial of seroquel, which can start with 25mg po TID and adjust as needed and as far as not too sedation nor causing other side effect. Given symptoms of impulsive, explosive behaviors, can also consider mood stabilizer such as low dose depakote, make sure to check ammonia and monitor signs of increase confusion. PLAN 1. Pt can return to [facility] continue OP psych treatment. Can start seroquel 25mg po TID, adjust dose as tolerated. Total time managing care of this patient today ____ minutes.
--- NOTE | 2023-11-04 15:35 | MHC.CARE ---
CARE Team left for Pts daughter Roxi to provide update with plan of care to discharge back to [facility] 11/05
[2023-11-04 21:39] VITALS: BP 125/68; PULSE 98; RESP 18; TEMP 36.8; O2SAT 98
[2023-11-05] MEDS: diphenhydrAMINE HCL 25 MG CAPSULE PO (00:03)
[2023-11-05 06:00] VITALS: BP 150/55; PULSE 88; RESP 18; TEMP 36.5; O2SAT 93
[2023-11-05] MEDS: Omeprazole 20 MG CAPSULE.DR PO (06:31)
--- NOTE | 2023-11-05 08:08 | MHC.CARE ---
spoke with Yuridia at [facility]. Fax sent with CARE assessment, MSU and psychiatry note. She will review, and reports generally a return around 1p is best. T/w to follow up
--- NOTE | 2023-11-05 08:42 | MHC.EDTECH ---
pt is still eating breakfast. pt is very annoyed by the pt in bed 6. pt is sitting in the recliner but continuously is trying to get up. Chair alarm is in place. Tech is standing nearby and reminding pt that he is unsteady and cannot stand up by himself. Pt did drink 120cc of cranberry juice.
[2023-11-05] MEDS: metFORMIN HCl 500 MG TABLET PO (09:13)
[2023-11-05] MEDS: Finasteride 5 MG TABLET PO (09:14)
[2023-11-05] MEDS: SITagliptin Phosphate 100 MG TABLET PO (09:14)
--- NOTE | 2023-11-05 09:17 | PC.NURSE ---
Addendum entered by Do Carballo 11/05/23 09:39: two assist back into bed, resting quietly with eyes closed. Original Note: patient two assist onto recliner, unsteady on feet. stating he feels as if he is going to fall backwards. encouraged to ask for assistance if he needs to stand and move anywhere. medicated per the MAR. agitated by patient yelling in other room.
--- NOTE | 2023-11-05 09:45 | MHC.EDTECH ---
pt changed and applied a clean brief, pt was incontinent of urine
--- NOTE | 2023-11-05 12:19 | PC.NURSE ---
report called to [facility], aware of patient returning to facility
== END 2023-11-05 12:44 | disposition skilled nursing facility (03) ==
PROVIDERS: Emergency Medicine; Emergency Provider Emergency Medicine Emergency Medical Services; PCP Family Medicine
DX: F03.B18 Unspecified dementia, moderate, with other behavioral disturbance (principal); R41.82 Altered mental status, unspecified; E78.00 Pure hypercholesterolemia, unspecified; E11.9 Type 2 diabetes mellitus without complications; Z85.51 Personal history of malignant neoplasm of bladder; Z85.841 Personal history of malignant neoplasm of brain; Z79.84 Long term (current) use of oral hypoglycemic drugs; Z79.85 Long-term (current) use of injectable non-insulin antidiabetic drugs; Z11.52 Encounter for screening for COVID-19
CPT/HCPCS: 51701; 51798; 80048; 80076; 80307; 81003; 83735; 85025; 87635; 93005; 99285; S9485

== ENCOUNTER → 2023-11-02 23:14 | Outpatient (BNV) | payer MEDICARE, MEDICAID, SELFPAY | PROVIDERS: Emergency Provider Emergency Medicine Emergency Medical Services; PCP Family Medicine; Visit Provider Social Worker | DX: F03.90 Unspecified dementia, unspecified severity, without behavioral disturbance, psychotic disturbance, mood disturbance, and anxiety (principal) | CPT/HCPCS: 99285 ==

== ENCOUNTER → 2023-11-02 23:26 | Outpatient (BNV) | payer MEDICARE, MEDICAID, SELFPAY | PROVIDERS: Emergency Provider Emergency Medicine Emergency Medical Services; PCP Family Medicine; Visit Provider Internal Medicine Cardiovascular Disease | DX: I44.0 Atrioventricular block, first degree (principal) | CPT/HCPCS: 93010 ==

== ENCOUNTER 2023-11-09 06:50 | Outpatient (REF) | payer SELFPAY ==
[2023-11-09 06:53] LABS: MANUAL DIFF FLAG NO
[2023-11-09 07:20] LABS: Basophils Absolute Auto 0.1 X10*3/uL (0.0-0.2); Basophils Percent Auto 0.9 % (0-2); Eosinophils Absolute Auto 0.3 X10*3/uL (0.0-0.4); Eosinophils Percent Auto 3.5 % (0-4); Hematocrit 41.7 % (42.0-52.0); Hemoglobin 13.9 g/dl (14.0-18.0); Imm Gran Abs Auto 0.09 X10*3/uL (0.00-0.03); Lymphocytes Absolute Auto 2.1 X10*3/uL (1.2-4.9); Lymphocytes Percent Auto 22.4 % (20-40); Mean Corpuscular HGB Conc 33.3 g/dl (31.0-36.0); Mean Corpuscular Hemoglobin 29.8 pg (27.0-33.0); Mean Corpuscular Volume 89.5 fL (80.0-98.0); Mean Platelet Volume 10.8 fL (9.4-12.4); Monocytes Absolute Auto 0.8 X10*3/uL (0.1-1.2); Monocytes Percent Auto 8.7 % (2-11); Neutrophils Absolute Auto 5.9 x10*3/uL (2.0-8.3); Neutrophils Percent Auto 63.5 % (45-73); Platelet Count 314 X10*3/uL (160-400); Red Blood Count 4.66 X10*6/uL (4.60-5.80); Red Cell Distribution Width 13.5 % (11.0-16.0); White Blood Count 9.2 X10*3/uL (4.8-10.8)
[2023-11-09 07:37] LABS: Anion Gap 13 (12-20); Blood Urea Nitrogen 22 mg/dL (9-16); Calcium 11.4 mg/dL (8.4-10.2); Carbon Dioxide 26 mmol/L (22-29); Chloride 105 mmol/L (96-108); Estimated Glomerular Filt Rate > 60; Glucose Random 197 mg/dL (60-115); Potassium 3.7 mmol/L (3.3-5.1); Sodium 140 mmol/L (135-145)
== END 2023-11-09 06:51 | disposition home or self-care (01) ==
LOC: HO.MMNH2L 06:50
PROVIDERS: Visit Provider Family Medicine
DX: R27.8 Other lack of coordination (principal)
CPT/HCPCS: 36415; 80048; 85025

== ENCOUNTER 2023-11-16 06:33 | Outpatient (REF) | payer MEDICARE, MEDICAID, SELFPAY ==
[2023-11-16 06:07] LABS: MANUAL DIFF FLAG NO
[2023-11-16 06:44] LABS: Basophils Absolute Auto 0.1 X10*3/uL (0.0-0.2); Basophils Percent Auto 0.6 % (0-2); Eosinophils Absolute Auto 0.4 X10*3/uL (0.0-0.4); Eosinophils Percent Auto 4.2 % (0-4); Hematocrit 43.4 % (42.0-52.0); Hemoglobin 14.6 g/dl (14.0-18.0); Imm Gran Abs Auto 0.08 X10*3/uL (0.00-0.03); Imm Gran Pct Auto 0.8 % (0.0-0.4); Lymphocytes Absolute Auto 2.5 X10*3/uL (1.2-4.9); Lymphocytes Percent Auto 24.5 % (20-40); Mean Corpuscular HGB Conc 33.6 g/dl (31.0-36.0); Mean Corpuscular Hemoglobin 30.4 pg (27.0-33.0); Mean Corpuscular Volume 90.2 fL (80.0-98.0); Mean Platelet Volume 10.4 fL (9.4-12.4); Monocytes Absolute Auto 0.7 X10*3/uL (0.1-1.2); Monocytes Percent Auto 6.7 % (2-11); Neutrophils Absolute Auto 6.5 x10*3/uL (2.0-8.3); Neutrophils Percent Auto 63.2 % (45-73); Platelet Count 345 X10*3/uL (160-400); Red Blood Count 4.81 X10*6/uL (4.60-5.80); Red Cell Distribution Width 13.3 % (11.0-16.0); White Blood Count 10.3 X10*3/uL (4.8-10.8)
[2023-11-16 07:01] LABS: Anion Gap 13 (12-20); Blood Urea Nitrogen 13 mg/dL (9-16); Calcium 11.3 mg/dL (8.4-10.2); Carbon Dioxide 25 mmol/L (22-29); Chloride 106 mmol/L (96-108); Estimated Glomerular Filt Rate > 60; Glucose Random 131 mg/dL (60-115); Potassium 3.4 mmol/L (3.3-5.1); Sodium 141 mmol/L (135-145)
== END 2023-11-16 06:34 | disposition home or self-care (01) ==
LOC: HO.MMNH2L 06:33
PROVIDERS: Visit Provider Family Medicine
DX: R27.8 Other lack of coordination (principal)
CPT/HCPCS: 36415; 80048; 85025

== ENCOUNTER 2023-11-23 06:51 | Outpatient (REF) | payer MEDICARE, MEDICAID, SELFPAY ==
[2023-11-23 06:08] LABS: MANUAL DIFF FLAG NO
[2023-11-23 07:21] LABS: Basophils Absolute Auto 0.1 X10*3/uL (0.0-0.2); Basophils Percent Auto 0.9 % (0-2); Eosinophils Absolute Auto 0.4 X10*3/uL (0.0-0.4); Eosinophils Percent Auto 3.7 % (0-4); Hematocrit 44.3 % (42.0-52.0); Hemoglobin 14.5 g/dl (14.0-18.0); Imm Gran Abs Auto 0.05 X10*3/uL (0.00-0.03); Imm Gran Pct Auto 0.5 % (0.0-0.4); Lymphocytes Absolute Auto 2.6 X10*3/uL (1.2-4.9); Lymphocytes Percent Auto 27.5 % (20-40); Mean Corpuscular HGB Conc 32.7 g/dl (31.0-36.0); Mean Corpuscular Hemoglobin 29.8 pg (27.0-33.0); Mean Platelet Volume 10.7 fL (9.4-12.4); Monocytes Absolute Auto 0.7 X10*3/uL (0.1-1.2); Monocytes Percent Auto 6.8 % (2-11); Neutrophils Absolute Auto 5.8 x10*3/uL (2.0-8.3); Neutrophils Percent Auto 60.6 % (45-73); Platelet Count 338 X10*3/uL (160-400); Red Blood Count 4.87 X10*6/uL (4.60-5.80); Red Cell Distribution Width 13.4 % (11.0-16.0); White Blood Count 9.6 X10*3/uL (4.8-10.8)
[2023-11-23 07:28] LABS: Anion Gap 11 (12-20); Blood Urea Nitrogen 15 mg/dL (9-16); Calcium 10.7 mg/dL (8.4-10.2); Carbon Dioxide 26 mmol/L (22-29); Chloride 107 mmol/L (96-108); Estimated Glomerular Filt Rate > 60; Glucose Random 173 mg/dL (60-115); Potassium 3.2 mmol/L (3.3-5.1); Sodium 141 mmol/L (135-145)
[2023-11-23 07:47] LABS: TSH reflex Free T4 1.38 uIU/mL (0.32-4.0)
[2023-11-23 08:00] LABS: Folate 4.6 ng/mL (> or = 4.0); Vitamin B12 238 pg/mL (200-900)
== END 2023-11-23 06:52 | disposition home or self-care (01) ==
LOC: HO.MMNH2L 06:51
PROVIDERS: Family Medicine; Visit Provider Internal Medicine Endocrinology, Diabetes & Metabolism
DX: R27.8 Other lack of coordination (principal)
CPT/HCPCS: 36415; 80048; 82306; 82607; 82746; 84443; 85025

== ENCOUNTER 2023-11-30 06:01 | Outpatient (REF) | payer MEDICARE, MEDICAID, SELFPAY ==
[2023-11-30 05:45] LABS: MANUAL DIFF FLAG NO
[2023-11-30 06:45] LABS: Basophils Absolute Auto 0.1 X10*3/uL (0.0-0.2); Basophils Percent Auto 0.7 % (0-2); Eosinophils Absolute Auto 0.5 X10*3/uL (0.0-0.4); Eosinophils Percent Auto 4.9 % (0-4); Hematocrit 46.7 % (42.0-52.0); Hemoglobin 15.5 g/dl (14.0-18.0); Imm Gran Abs Auto 0.04 X10*3/uL (0.00-0.03); Imm Gran Pct Auto 0.4 % (0.0-0.4); Lymphocytes Absolute Auto 2.4 X10*3/uL (1.2-4.9); Lymphocytes Percent Auto 25.4 % (20-40); Mean Corpuscular HGB Conc 33.2 g/dl (31.0-36.0); Mean Corpuscular Hemoglobin 29.9 pg (27.0-33.0); Mean Corpuscular Volume 90.2 fL (80.0-98.0); Mean Platelet Volume 10.3 fL (9.4-12.4); Monocytes Absolute Auto 0.6 X10*3/uL (0.1-1.2); Monocytes Percent Auto 6.4 % (2-11); Neutrophils Absolute Auto 5.9 x10*3/uL (2.0-8.3); Neutrophils Percent Auto 62.2 % (45-73); Platelet Count 331 X10*3/uL (160-400); Red Blood Count 5.18 X10*6/uL (4.60-5.80); Red Cell Distribution Width 13.4 % (11.0-16.0); White Blood Count 9.5 X10*3/uL (4.8-10.8)
[2023-11-30 07:09] LABS: Parathyroid Hormone Intact 170.3 pg/mL (8.7-77.1)
[2023-11-30 07:14] LABS: Anion Gap 13 (12-20); Blood Urea Nitrogen 12 mg/dL (9-16); Calcium 11.6 mg/dL (8.4-10.2); Carbon Dioxide 24 mmol/L (22-29); Chloride 106 mmol/L (96-108); Estimated Glomerular Filt Rate > 60; Glucose Random 98 mg/dL (60-115); Potassium 3.4 mmol/L (3.3-5.1); Sodium 140 mmol/L (135-145)
== END 2023-11-30 06:02 | disposition home or self-care (01) ==
LOC: HO.MMNH2L 06:01
PROVIDERS: Visit Provider Family Medicine
DX: R27.8 Other lack of coordination (principal)
CPT/HCPCS: 36415; 80048; 83970; 84075; 85025

== ENCOUNTER 2023-12-07 06:09 | Outpatient (REF) | payer MEDICARE, MEDICAID, SELFPAY ==
[2023-12-07 05:53] LABS: MANUAL DIFF FLAG NO
[2023-12-07 06:42] LABS: Basophils Absolute Auto 0.1 X10*3/uL (0.0-0.2); Basophils Percent Auto 0.7 % (0-2); Eosinophils Absolute Auto 0.4 X10*3/uL (0.0-0.4); Eosinophils Percent Auto 4.5 % (0-4); Hematocrit 41.6 % (42.0-52.0); Hemoglobin 13.7 g/dl (14.0-18.0); Imm Gran Abs Auto 0.06 X10*3/uL (0.00-0.03); Imm Gran Pct Auto 0.6 % (0.0-0.4); Lymphocytes Absolute Auto 2.2 X10*3/uL (1.2-4.9); Mean Corpuscular HGB Conc 32.9 g/dl (31.0-36.0); Mean Platelet Volume 10.7 fL (9.4-12.4); Monocytes Absolute Auto 0.6 X10*3/uL (0.1-1.2); Monocytes Percent Auto 5.9 % (2-11); Neutrophils Absolute Auto 6.1 x10*3/uL (2.0-8.3); Neutrophils Percent Auto 65.3 % (45-73); Platelet Count 295 X10*3/uL (160-400); Red Blood Count 4.57 X10*6/uL (4.60-5.80); Red Cell Distribution Width 13.3 % (11.0-16.0); White Blood Count 9.4 X10*3/uL (4.8-10.8)
[2023-12-07 07:03] LABS: Anion Gap 9 (12-20); Blood Urea Nitrogen 12 mg/dL (9-16); Calcium 10.7 mg/dL (8.4-10.2); Carbon Dioxide 25 mmol/L (22-29); Chloride 107 mmol/L (96-108); Estimated Glomerular Filt Rate > 60; Glucose Random 157 mg/dL (60-115); Potassium 3.4 mmol/L (3.3-5.1); Sodium 138 mmol/L (135-145)
== END 2023-12-07 06:10 | disposition home or self-care (01) ==
LOC: HO.MMNH2L 06:09
PROVIDERS: Visit Provider Family Medicine
DX: R27.8 Other lack of coordination (principal)
CPT/HCPCS: 36415; 80048; 85025

== ENCOUNTER 2023-12-14 06:17 | Outpatient (REF) | payer MEDICARE, MEDICAID, SELFPAY ==
[2023-12-14 05:52] LABS: MANUAL DIFF FLAG NO
[2023-12-14 06:15] LABS: Basophils Absolute Auto 0.1 X10*3/uL (0.0-0.2); Basophils Percent Auto 0.6 % (0-2); Eosinophils Absolute Auto 0.4 X10*3/uL (0.0-0.4); Eosinophils Percent Auto 3.2 % (0-4); Hematocrit 44.2 % (42.0-52.0); Hemoglobin 14.9 g/dl (14.0-18.0); Imm Gran Abs Auto 0.08 X10*3/uL (0.00-0.03); Imm Gran Pct Auto 0.6 % (0.0-0.4); Lymphocytes Absolute Auto 2.5 X10*3/uL (1.2-4.9); Mean Corpuscular HGB Conc 33.7 g/dl (31.0-36.0); Mean Corpuscular Hemoglobin 30.3 pg (27.0-33.0); Mean Corpuscular Volume 89.8 fL (80.0-98.0); Mean Platelet Volume 10.5 fL (9.4-12.4); Monocytes Absolute Auto 0.8 X10*3/uL (0.1-1.2); Monocytes Percent Auto 6.6 % (2-11); Neutrophils Absolute Auto 8.5 x10*3/uL (2.0-8.3); Platelet Count 286 X10*3/uL (160-400); Red Blood Count 4.92 X10*6/uL (4.60-5.80); Red Cell Distribution Width 13.3 % (11.0-16.0); White Blood Count 12.4 X10*3/uL (4.8-10.8)
[2023-12-14 06:31] LABS: Anion Gap 13 (12-20); Blood Urea Nitrogen 10 mg/dL (9-16); Calcium 11.4 mg/dL (8.4-10.2); Carbon Dioxide 24 mmol/L (22-29); Chloride 108 mmol/L (96-108); Estimated Glomerular Filt Rate > 60; Glucose Random 140 mg/dL (60-115); Potassium 3.6 mmol/L (3.3-5.1); Sodium 141 mmol/L (135-145)
== END 2023-12-14 06:18 | disposition home or self-care (01) ==
LOC: HO.MMNH2L 06:17
PROVIDERS: Visit Provider Family Medicine
DX: R27.8 Other lack of coordination (principal)
CPT/HCPCS: 36415; 80048; 85025

== ENCOUNTER 2023-12-21 06:10 | Outpatient (REF) | payer MEDICARE, MEDICAID, SELFPAY ==
[2023-12-21 05:59] LABS: MANUAL DIFF FLAG NO
[2023-12-21 06:36] LABS: Basophils Absolute Auto 0.1 X10*3/uL (0.0-0.2); Basophils Percent Auto 0.6 % (0-2); Eosinophils Absolute Auto 0.4 X10*3/uL (0.0-0.4); Hematocrit 41.3 % (42.0-52.0); Imm Gran Abs Auto 0.06 X10*3/uL (0.00-0.03); Imm Gran Pct Auto 0.7 % (0.0-0.4); Lymphocytes Absolute Auto 2.4 X10*3/uL (1.2-4.9); Lymphocytes Percent Auto 27.9 % (20-40); Mean Corpuscular HGB Conc 33.9 g/dl (31.0-36.0); Mean Corpuscular Hemoglobin 30.4 pg (27.0-33.0); Mean Corpuscular Volume 89.6 fL (80.0-98.0); Mean Platelet Volume 10.4 fL (9.4-12.4); Monocytes Absolute Auto 0.5 X10*3/uL (0.1-1.2); Monocytes Percent Auto 6.3 % (2-11); Neutrophils Absolute Auto 5.1 x10*3/uL (2.0-8.3); Neutrophils Percent Auto 59.5 % (45-73); Platelet Count 310 X10*3/uL (160-400); Red Blood Count 4.61 X10*6/uL (4.60-5.80); Red Cell Distribution Width 13.2 % (11.0-16.0); White Blood Count 8.6 X10*3/uL (4.8-10.8)
[2023-12-21 06:53] LABS: Anion Gap 13 (12-20); Blood Urea Nitrogen 13 mg/dL (9-16); Calcium 10.9 mg/dL (8.4-10.2); Carbon Dioxide 23 mmol/L (22-29); Chloride 109 mmol/L (96-108); Estimated Glomerular Filt Rate > 60; Glucose Random 140 mg/dL (60-115); Potassium 3.5 mmol/L (3.3-5.1); Sodium 141 mmol/L (135-145)
== END 2023-12-21 06:11 | disposition home or self-care (01) ==
LOC: HO.MMNH2L 06:10
PROVIDERS: Visit Provider Family Medicine
DX: R27.8 Other lack of coordination (principal)
CPT/HCPCS: 36415; 80048; 85025

== ENCOUNTER 2023-12-28 07:23 | Outpatient (REF) | payer MEDICARE, MEDICAID, SELFPAY ==
[2023-12-28 06:22] LABS: MANUAL DIFF FLAG NO
[2023-12-28 07:06] LABS: Basophils Absolute Auto 0.1 X10*3/uL (0.0-0.2); Basophils Percent Auto 0.8 % (0-2); Eosinophils Absolute Auto 0.4 X10*3/uL (0.0-0.4); Eosinophils Percent Auto 4.5 % (0-4); Hematocrit 42.9 % (42.0-52.0); Hemoglobin 14.3 g/dl (14.0-18.0); Imm Gran Abs Auto 0.06 X10*3/uL (0.00-0.03); Imm Gran Pct Auto 0.7 % (0.0-0.4); Lymphocytes Absolute Auto 2.5 X10*3/uL (1.2-4.9); Lymphocytes Percent Auto 27.6 % (20-40); Mean Corpuscular HGB Conc 33.3 g/dl (31.0-36.0); Mean Corpuscular Hemoglobin 30.2 pg (27.0-33.0); Mean Corpuscular Volume 90.5 fL (80.0-98.0); Mean Platelet Volume 10.3 fL (9.4-12.4); Monocytes Absolute Auto 0.6 X10*3/uL (0.1-1.2); Monocytes Percent Auto 6.6 % (2-11); Neutrophils Absolute Auto 5.4 x10*3/uL (2.0-8.3); Neutrophils Percent Auto 59.8 % (45-73); Platelet Count 317 X10*3/uL (160-400); Red Blood Count 4.74 X10*6/uL (4.60-5.80); Red Cell Distribution Width 13.2 % (11.0-16.0); White Blood Count 9.1 X10*3/uL (4.8-10.8)
[2023-12-28 07:35] LABS: Anion Gap 12 (12-20); Blood Urea Nitrogen 9 mg/dL (9-16); Calcium 11.1 mg/dL (8.4-10.2); Carbon Dioxide 24 mmol/L (22-29); Chloride 108 mmol/L (96-108); Estimated Glomerular Filt Rate > 60; Glucose Random 120 mg/dL (60-115); Potassium 3.9 mmol/L (3.3-5.1); Sodium 140 mmol/L (135-145)
== END 2023-12-28 07:24 | disposition home or self-care (01) ==
LOC: HO.MMNH2L 07:23
PROVIDERS: Visit Provider Family Medicine
DX: R27.8 Other lack of coordination (principal)
CPT/HCPCS: 36415; 80048; 85025

== ENCOUNTER 2024-01-04 06:09 | Outpatient (REF) | payer MEDICARE, MEDICAID, SELFPAY ==
[2024-01-04 06:03] LABS: MANUAL DIFF FLAG NO
[2024-01-04 07:11] LABS: Basophils Absolute Auto 0.1 X10*3/uL (0.0-0.2); Basophils Percent Auto 0.9 % (0-2); Eosinophils Absolute Auto 0.4 X10*3/uL (0.0-0.4); Hematocrit 40.8 % (42.0-52.0); Hemoglobin 13.4 g/dl (14.0-18.0); Imm Gran Abs Auto 0.02 X10*3/uL (0.00-0.03); Imm Gran Pct Auto 0.2 % (0.0-0.4); Lymphocytes Absolute Auto 2.5 X10*3/uL (1.2-4.9); Lymphocytes Percent Auto 30.9 % (20-40); Mean Corpuscular HGB Conc 32.8 g/dl (31.0-36.0); Mean Corpuscular Volume 91.5 fL (80.0-98.0); Mean Platelet Volume 10.4 fL (9.4-12.4); Monocytes Absolute Auto 0.6 X10*3/uL (0.1-1.2); Monocytes Percent Auto 7.7 % (2-11); Neutrophils Absolute Auto 4.4 x10*3/uL (2.0-8.3); Neutrophils Percent Auto 55.3 % (45-73); Platelet Count 273 X10*3/uL (160-400); Red Blood Count 4.46 X10*6/uL (4.60-5.80); Red Cell Distribution Width 13.3 % (11.0-16.0)
[2024-01-04 07:46] LABS: Anion Gap 11 (12-20); Blood Urea Nitrogen 17 mg/dL (9-16); Calcium 10.8 mg/dL (8.4-10.2); Carbon Dioxide 25 mmol/L (22-29); Chloride 108 mmol/L (96-108); Estimated Glomerular Filt Rate > 60; Glucose Random 160 mg/dL (60-115); Potassium 3.7 mmol/L (3.3-5.1); Sodium 140 mmol/L (135-145)
== END 2024-01-04 06:10 | disposition home or self-care (01) ==
LOC: HO.MMNH2L 06:09
PROVIDERS: Visit Provider Family Medicine
DX: R27.8 Other lack of coordination (principal)
CPT/HCPCS: 36415; 80048; 85025

== ENCOUNTER 2024-01-11 06:51 | Outpatient (REF) | payer MEDICARE, MEDICAID, SELFPAY ==
[2024-01-11 05:57] LABS: MANUAL DIFF FLAG NO
[2024-01-11 06:18] LABS: Basophils Absolute Auto 0.1 X10*3/uL (0.0-0.2); Basophils Percent Auto 0.7 % (0-2); Eosinophils Absolute Auto 0.4 X10*3/uL (0.0-0.4); Eosinophils Percent Auto 4.5 % (0-4); Hematocrit 41.3 % (42.0-52.0); Hemoglobin 13.8 g/dl (14.0-18.0); Imm Gran Abs Auto 0.04 X10*3/uL (0.00-0.03); Imm Gran Pct Auto 0.5 % (0.0-0.4); Lymphocytes Absolute Auto 2.5 X10*3/uL (1.2-4.9); Lymphocytes Percent Auto 28.5 % (20-40); Mean Corpuscular HGB Conc 33.4 g/dl (31.0-36.0); Mean Corpuscular Hemoglobin 30.6 pg (27.0-33.0); Mean Corpuscular Volume 91.6 fL (80.0-98.0); Mean Platelet Volume 10.7 fL (9.4-12.4); Monocytes Absolute Auto 0.6 X10*3/uL (0.1-1.2); Monocytes Percent Auto 6.9 % (2-11); Neutrophils Absolute Auto 5.1 x10*3/uL (2.0-8.3); Neutrophils Percent Auto 58.9 % (45-73); Platelet Count 258 X10*3/uL (160-400); Red Blood Count 4.51 X10*6/uL (4.60-5.80); Red Cell Distribution Width 13.5 % (11.0-16.0); White Blood Count 8.7 X10*3/uL (4.8-10.8)
[2024-01-11 06:41] LABS: Anion Gap 13 (12-20); Blood Urea Nitrogen 21 mg/dL (9-16); Calcium 10.6 mg/dL (8.4-10.2); Carbon Dioxide 25 mmol/L (22-29); Chloride 106 mmol/L (96-108); Estimated Glomerular Filt Rate > 60; Glucose Random 186 mg/dL (60-115); Potassium 3.5 mmol/L (3.3-5.1); Sodium 140 mmol/L (135-145)
== END 2024-01-11 06:52 | disposition home or self-care (01) ==
LOC: HO.MMNH2L 06:51
PROVIDERS: Visit Provider Family Medicine
DX: R27.8 Other lack of coordination (principal)
CPT/HCPCS: 36415; 80048; 85025

== ENCOUNTER 2024-01-18 06:09 | Outpatient (REF) | payer MEDICARE, MEDICAID, SELFPAY ==
[2024-01-18 06:05] LABS: MANUAL DIFF FLAG NO
[2024-01-18 06:56] LABS: Basophils Percent Auto 0.5 % (0-2); Eosinophils Absolute Auto 0.2 X10*3/uL (0.0-0.4); Eosinophils Percent Auto 2.8 % (0-4); Hematocrit 42.7 % (42.0-52.0); Hemoglobin 14.1 g/dl (14.0-18.0); Imm Gran Abs Auto 0.04 X10*3/uL (0.00-0.03); Imm Gran Pct Auto 0.5 % (0.0-0.4); Lymphocytes Percent Auto 22.9 % (20-40); Mean Corpuscular Hemoglobin 30.2 pg (27.0-33.0); Mean Corpuscular Volume 91.4 fL (80.0-98.0); Mean Platelet Volume 10.5 fL (9.4-12.4); Monocytes Absolute Auto 0.6 X10*3/uL (0.1-1.2); Monocytes Percent Auto 7.3 % (2-11); Neutrophils Absolute Auto 5.7 x10*3/uL (2.0-8.3); Platelet Count 264 X10*3/uL (160-400); Red Blood Count 4.67 X10*6/uL (4.60-5.80); Red Cell Distribution Width 13.7 % (11.0-16.0); White Blood Count 8.7 X10*3/uL (4.8-10.8)
[2024-01-18 07:14] LABS: Anion Gap 9 (12-20); Blood Urea Nitrogen 21 mg/dL (9-16); Calcium 11.2 mg/dL (8.4-10.2); Carbon Dioxide 25 mmol/L (22-29); Chloride 113 mmol/L (96-108); Estimated Glomerular Filt Rate > 60; Glucose Random 143 mg/dL (60-115); Potassium 3.2 mmol/L (3.3-5.1); Sodium 144 mmol/L (135-145)
== END 2024-01-18 06:10 | disposition home or self-care (01) ==
LOC: HO.MMNH2L 06:09
PROVIDERS: Visit Provider Family Medicine
DX: R27.8 Other lack of coordination (principal)
CPT/HCPCS: 36415; 80048; 85025

== ENCOUNTER 2024-01-25 05:44 | Outpatient (REF) | payer MEDICARE, MEDICAID, SELFPAY ==
[2024-01-25 05:38] LABS: MANUAL DIFF FLAG NO
[2024-01-25 05:50] LABS: Basophils Absolute Auto 0.1 X10*3/uL (0.0-0.2); Basophils Percent Auto 0.7 % (0-2); Eosinophils Absolute Auto 0.4 X10*3/uL (0.0-0.4); Eosinophils Percent Auto 4.3 % (0-4); Hematocrit 39.8 % (42.0-52.0); Hemoglobin 13.4 g/dl (14.0-18.0); Imm Gran Abs Auto 0.14 X10*3/uL (0.00-0.03); Imm Gran Pct Auto 1.5 % (0.0-0.4); Lymphocytes Absolute Auto 2.5 X10*3/uL (1.2-4.9); Lymphocytes Percent Auto 26.7 % (20-40); Mean Corpuscular HGB Conc 33.7 g/dl (31.0-36.0); Mean Corpuscular Hemoglobin 30.5 pg (27.0-33.0); Mean Corpuscular Volume 90.5 fL (80.0-98.0); Mean Platelet Volume 10.6 fL (9.4-12.4); Monocytes Absolute Auto 0.6 X10*3/uL (0.1-1.2); Monocytes Percent Auto 6.4 % (2-11); Neutrophils Absolute Auto 5.7 x10*3/uL (2.0-8.3); Neutrophils Percent Auto 60.4 % (45-73); Platelet Count 313 X10*3/uL (160-400); Red Cell Distribution Width 13.3 % (11.0-16.0); White Blood Count 9.4 X10*3/uL (4.8-10.8)
[2024-01-25 06:19] LABS: Anion Gap 12 (12-20); Blood Urea Nitrogen 20 mg/dL (9-16); Calcium 10.9 mg/dL (8.4-10.2); Carbon Dioxide 22 mmol/L (22-29); Chloride 107 mmol/L (96-108); Estimated Glomerular Filt Rate > 60; Glucose Random 198 mg/dL (60-115); Potassium 3.5 mmol/L (3.3-5.1); Sodium 137 mmol/L (135-145)
== END 2024-01-25 05:45 | disposition home or self-care (01) ==
LOC: HO.MMNH2L 05:44
PROVIDERS: Visit Provider Family Medicine
DX: R27.8 Other lack of coordination (principal)
CPT/HCPCS: 36415; 80048; 85025

== ENCOUNTER 2024-02-08 06:21 | Outpatient (REF) | payer MEDICARE, MEDICAID, SELFPAY ==
[2024-02-08 05:48] LABS: MANUAL DIFF FLAG NO
[2024-02-08 06:22] LABS: Basophils Absolute Auto 0.1 X10*3/uL (0.0-0.2); Basophils Percent Auto 0.8 % (0-2); Eosinophils Absolute Auto 0.5 X10*3/uL (0.0-0.4); Eosinophils Percent Auto 5.6 % (0-4); Hematocrit 40.9 % (42.0-52.0); Hemoglobin 13.6 g/dl (14.0-18.0); Imm Gran Abs Auto 0.06 X10*3/uL (0.00-0.03); Imm Gran Pct Auto 0.7 % (0.0-0.4); Lymphocytes Absolute Auto 2.6 X10*3/uL (1.2-4.9); Lymphocytes Percent Auto 29.1 % (20-40); Mean Corpuscular HGB Conc 33.3 g/dl (31.0-36.0); Mean Corpuscular Hemoglobin 30.7 pg (27.0-33.0); Mean Corpuscular Volume 92.3 fL (80.0-98.0); Mean Platelet Volume 10.7 fL (9.4-12.4); Monocytes Absolute Auto 0.7 X10*3/uL (0.1-1.2); Monocytes Percent Auto 7.4 % (2-11); Neutrophils Percent Auto 56.4 % (45-73); Platelet Count 265 X10*3/uL (160-400); Red Blood Count 4.43 X10*6/uL (4.60-5.80); Red Cell Distribution Width 13.5 % (11.0-16.0); White Blood Count 8.8 X10*3/uL (4.8-10.8)
[2024-02-08 06:43] LABS: Anion Gap 13 (12-20); Blood Urea Nitrogen 14 mg/dL (9-16); Calcium 11.2 mg/dL (8.4-10.2); Carbon Dioxide 24 mmol/L (22-29); Chloride 106 mmol/L (96-108); Estimated Glomerular Filt Rate > 60; Glucose Random 126 mg/dL (60-115); Potassium 3.7 mmol/L (3.3-5.1); Sodium 139 mmol/L (135-145)
== END 2024-02-08 06:22 | disposition home or self-care (01) ==
LOC: HO.MMNH2L 06:21
PROVIDERS: Visit Provider Family Medicine
DX: R27.8 Other lack of coordination (principal)
CPT/HCPCS: 36415; 80048; 85025

== ENCOUNTER 2024-02-15 06:29 | Outpatient (REF) | payer MEDICARE, MEDICAID, SELFPAY ==
[2024-02-15 06:15] LABS: MANUAL DIFF FLAG NO
[2024-02-15 07:17] LABS: Basophils Absolute Auto 0.1 X10*3/uL (0.0-0.2); Basophils Percent Auto 0.6 % (0-2); Eosinophils Absolute Auto 0.4 X10*3/uL (0.0-0.4); Hematocrit 43.8 % (42.0-52.0); Hemoglobin 14.6 g/dl (14.0-18.0); Imm Gran Abs Auto 0.04 X10*3/uL (0.00-0.03); Imm Gran Pct Auto 0.5 % (0.0-0.4); Lymphocytes Absolute Auto 2.5 X10*3/uL (1.2-4.9); Lymphocytes Percent Auto 29.7 % (20-40); Mean Corpuscular HGB Conc 33.3 g/dl (31.0-36.0); Mean Corpuscular Hemoglobin 30.6 pg (27.0-33.0); Mean Corpuscular Volume 91.8 fL (80.0-98.0); Mean Platelet Volume 10.1 fL (9.4-12.4); Monocytes Absolute Auto 0.6 X10*3/uL (0.1-1.2); Monocytes Percent Auto 7.2 % (2-11); Neutrophils Absolute Auto 4.7 x10*3/uL (2.0-8.3); Platelet Count 294 X10*3/uL (160-400); Red Blood Count 4.77 X10*6/uL (4.60-5.80); Red Cell Distribution Width 13.2 % (11.0-16.0); White Blood Count 8.2 X10*3/uL (4.8-10.8)
[2024-02-15 07:28] LABS: Anion Gap 14 (12-20); Blood Urea Nitrogen 14 mg/dL (9-16); Calcium 11.5 mg/dL (8.4-10.2); Carbon Dioxide 22 mmol/L (22-29); Chloride 108 mmol/L (96-108); Estimated Glomerular Filt Rate > 60; Glucose Random 107 mg/dL (60-115); Potassium 3.7 mmol/L (3.3-5.1); Sodium 140 mmol/L (135-145)
[2024-02-15 07:36] LABS: Parathyroid Hormone Intact 163.1 pg/mL (8.7-77.1)
[2024-02-15 07:44] LABS: Vitamin D 25-OH Total 23.7 ng/mL (>30)
== END 2024-02-15 06:30 | disposition home or self-care (01) ==
LOC: HO.MMNH2L 06:29
PROVIDERS: Visit Provider Family Medicine
DX: R27.8 Other lack of coordination (principal)
CPT/HCPCS: 36415; 80048; 82306; 83970; 85025

== ENCOUNTER 2024-02-22 06:12 | Outpatient (REF) | payer MEDICARE, MEDICAID, SELFPAY ==
[2024-02-22 06:12] LABS: MANUAL DIFF FLAG NO
[2024-02-22 07:08] LABS: Basophils Absolute Auto 0.1 X10*3/uL (0.0-0.2); Basophils Percent Auto 0.5 % (0-2); Eosinophils Absolute Auto 0.1 X10*3/uL (0.0-0.4); Eosinophils Percent Auto 0.7 % (0-4); Hematocrit 45.6 % (42.0-52.0); Hemoglobin 15.2 g/dl (14.0-18.0); Imm Gran Pct Auto 0.6 % (0.0-0.4); Lymphocytes Absolute Auto 1.5 X10*3/uL (1.2-4.9); Lymphocytes Percent Auto 9.6 % (20-40); Mean Corpuscular HGB Conc 33.3 g/dl (31.0-36.0); Mean Corpuscular Hemoglobin 30.6 pg (27.0-33.0); Mean Corpuscular Volume 91.9 fL (80.0-98.0); Mean Platelet Volume 10.4 fL (9.4-12.4); Monocytes Absolute Auto 0.6 X10*3/uL (0.1-1.2); Monocytes Percent Auto 3.9 % (2-11); Neutrophils Absolute Auto 13.6 x10*3/uL (2.0-8.3); Neutrophils Percent Auto 84.7 % (45-73); Platelet Count 342 X10*3/uL (160-400); Red Blood Count 4.96 X10*6/uL (4.60-5.80); Red Cell Distribution Width 13.5 % (11.0-16.0); White Blood Count 16.1 X10*3/uL (4.8-10.8)
[2024-02-22 07:39] LABS: Anion Gap 16 (12-20); Blood Urea Nitrogen 18 mg/dL (9-16); Calcium 11.9 mg/dL (8.4-10.2); Carbon Dioxide 24 mmol/L (22-29); Chloride 105 mmol/L (96-108); Estimated Glomerular Filt Rate > 60; Glucose Random 220 mg/dL (60-115); Potassium 3.5 mmol/L (3.3-5.1); Sodium 141 mmol/L (135-145)
== END 2024-02-22 06:13 | disposition home or self-care (01) ==
LOC: HO.MMNH2L 06:12
PROVIDERS: Visit Provider Family Medicine
DX: R27.8 Other lack of coordination (principal)
CPT/HCPCS: 36415; 80048; 85025

== ENCOUNTER 2024-03-08 06:04 | Outpatient (REF) | payer MEDICARE, MEDICAID, SELFPAY ==
[2024-03-08 05:49] LABS: MANUAL DIFF FLAG NO
[2024-03-08 06:38] LABS: Basophils Absolute Auto 0.1 X10*3/uL (0.0-0.2); Basophils Percent Auto 0.6 % (0-2); Eosinophils Absolute Auto 0.4 X10*3/uL (0.0-0.4); Eosinophils Percent Auto 4.2 % (0-4); Hematocrit 42.1 % (42.0-52.0); Hemoglobin 14.1 g/dl (14.0-18.0); Imm Gran Abs Auto 0.07 X10*3/uL (0.00-0.03); Imm Gran Pct Auto 0.7 % (0.0-0.4); Lymphocytes Absolute Auto 2.3 X10*3/uL (1.2-4.9); Mean Corpuscular HGB Conc 33.5 g/dl (31.0-36.0); Mean Corpuscular Hemoglobin 30.7 pg (27.0-33.0); Mean Corpuscular Volume 91.7 fL (80.0-98.0); Mean Platelet Volume 10.3 fL (9.4-12.4); Monocytes Absolute Auto 0.5 X10*3/uL (0.1-1.2); Monocytes Percent Auto 5.6 % (2-11); Neutrophils Absolute Auto 6.3 x10*3/uL (2.0-8.3); Neutrophils Percent Auto 64.9 % (45-73); Platelet Count 295 X10*3/uL (160-400); Red Blood Count 4.59 X10*6/uL (4.60-5.80); Red Cell Distribution Width 13.3 % (11.0-16.0); White Blood Count 9.7 X10*3/uL (4.8-10.8)
[2024-03-08 07:08] LABS: Anion Gap 13 (12-20); Blood Urea Nitrogen 14 mg/dL (9-16); Calcium 11.2 mg/dL (8.4-10.2); Carbon Dioxide 25 mmol/L (22-29); Chloride 106 mmol/L (96-108); Estimated Glomerular Filt Rate > 60; Glucose Random 127 mg/dL (60-115); Potassium 3.7 mmol/L (3.3-5.1); Sodium 140 mmol/L (135-145)
== END 2024-03-08 06:05 | disposition home or self-care (01) ==
LOC: HO.MMNH2L 06:04
PROVIDERS: Visit Provider Family Medicine
DX: R27.8 Other lack of coordination (principal)
CPT/HCPCS: 36415; 80048; 85025

== ENCOUNTER 2024-03-13 01:19 | Emergency (ER) | payer MEDICARE, MEDICAID, SELFPAY ==
[2024-03-13] VITALS (8 sets, daily range): BP systolic 128–168; BP diastolic 53–118; PULSE 52–99; RESP 14–20; TEMP 36.4–37.7; O2SAT 92–98; BMI 33.1
--- NOTE | 2024-03-13 01:55 | MHC.EDTECH ---
Patient came in by ambulance,changed into hospital attire,vitals taken,rectal temp is 99.9, patient placed on the patient monitor. Patient was incont. of a large amount of urine,ezequiel-care given,[place] cath.placed to keep patient clean and dry.
[2024-03-13 02:14] LABS: MANUAL DIFF FLAG NO
[2024-03-13 02:15] LABS: Basophils Absolute Auto 0.1 X10*3/uL (0.0-0.2); Basophils Percent Auto 0.5 % (0-2); Eosinophils Absolute Auto 0.1 X10*3/uL (0.0-0.4); Eosinophils Percent Auto 0.9 % (0-4); Hematocrit 43.8 % (42.0-52.0); Hemoglobin 15.5 g/dl (14.0-18.0); Imm Gran Abs Auto 0.07 X10*3/uL (0.00-0.03); Imm Gran Pct Auto 0.6 % (0.0-0.4); Lymphocytes Absolute Auto 1.4 X10*3/uL (1.2-4.9); Lymphocytes Percent Auto 11.6 % (20-40); Mean Corpuscular HGB Conc 35.4 g/dl (31.0-36.0); Mean Corpuscular Hemoglobin 31.4 pg (27.0-33.0); Mean Corpuscular Volume 88.7 fL (80.0-98.0); Mean Platelet Volume 9.9 fL (9.4-12.4); Monocytes Absolute Auto 0.5 X10*3/uL (0.1-1.2); Monocytes Percent Auto 4.5 % (2-11); Neutrophils Absolute Auto 9.7 x10*3/uL (2.0-8.3); Neutrophils Percent Auto 81.9 % (45-73); Platelet Count 291 X10*3/uL (160-400); Red Blood Count 4.94 X10*6/uL (4.60-5.80); Red Cell Distribution Width 13.2 % (11.0-16.0); White Blood Count 11.9 X10*3/uL (4.8-10.8)
[2024-03-13 02:21] LABS: Appearance Urine Turbid; Color Urine Yellow; Glucose Urine UA Negative (Negative); Leukocyte Esterase Urine Large (3+) (Negative); Nitrite Urine Negative (Negative); PH 7.5 (5.0-9.0); Specific Gravity - Urine 1.025 (1.005-1.025); UMIC TRIGGER UACC YES; Urine Blood Negative (Negative); Urine Ketones Trace mg/dL (Negative); Urine Protein 30 (1+) mg/dL (Neg-Trace)
[2024-03-13 02:28] LABS: Bacteria Urine 4+ (None Seen); RBC Urine >20 /HPF (0-2); Squamous Epithelial Cell Urine 0-2 /HPF (0-2); UACC Culture Trigger YES; WBC Urine >50 /HPF (0-5)
[2024-03-13 02:58] LABS: Alanine Aminotransferase 16 U/L (0-40); Albumin Level 3.9 g/dL (3.5-5.0); Alkaline Phosphatase 100 U/L (39-117); Anion Gap 17 (12-20); Aspartate Amino Transferase 17 U/L (5-37); Bilirubin Total 0.5 mg/dL (0.0-1.0); Blood Urea Nitrogen 19 mg/dL (9-16); Calcium 11.9 mg/dL (8.4-10.2); Carbon Dioxide 24 mmol/L (22-29); Chloride 102 mmol/L (96-108); Creatinine Clr Calc Pharmacy 69.8; Estimated Glomerular Filt Rate > 60; Glucose Random 305 mg/dL (60-115); Lipase 28 U/L (8-78); Potassium 3.9 mmol/L (3.3-5.1); Sodium 139 mmol/L (135-145); Total Protein 7.1 g/dL (6.5-8.0)
--- NOTE | 2024-03-13 04:52 | MHC.EDTECH ---
This tech found patient with IV out and monitor off, RN was made aware,Patient vomited an extra large amount,patient was cleaned and bed linen changed,hourly rounds and vitals completed
--- NOTE | 2024-03-13 04:54 | PC.NURSE ---
Pt had episode of vomiting, removed IV (canula intact).
[2024-03-13] MEDS: ondansetron HCL 4 MG/2 ML VIAL IVPUSH (05:02)
--- NOTE | 2024-03-13 05:05 | PC.NURSE ---
After initial assessment of appearing AxO 4, pt experienced confusion, pulled own IV out and expressed confusion with location. Pt reoriented to situation and location, no further complications.
[2024-03-13] MEDS: cefTRIAXone sodium 1 GM in 0.9 % Sodium Chloride 50 ML IV (07:00)
[2024-03-13] MEDS: 0.9 % Sodium Chloride 1,000 ML 999 ML IV (07:04)
--- NOTE | 2024-03-13 07:06 | PC.NURSE ---
Alert and responsive, denies pain or discomfort, medicated per mar
--- NOTE | 2024-03-13 07:12 | PC.NURSE ---
bladder scanned for 144mls, provider aware
--- NOTE | 2024-03-13 08:36 | ED_ITS ---
HPI - General Adult General Chief complaint: Nausea/Vomiting/Diarrhea Stated complaint: FEVER 100.2,BROWN VOMIT PER EMS Time Seen by Provider: 03/13/24 06:38 Source: patient and RN notes reviewed Mode of arrival: EMS Limitations: no limitations History of Present Illness HPI narrative: Patient is a 73-year-old male with past medical history of [id number]-[id number] diabetes, BPH, dementia, history of bladder cancer, intracranial craniopharyngioma who presents to the emergency department via EMS coming from [facility]; with reports of intermittent nausea and vomiting over the past 5 days and the general unwell feeling. Patient reports that he has been vomiting recently but offers no further complaints. Denies any pain when asked. Denies having any fevers or chills, denies any urinary symptoms. Related Data Home Medications ?Medication ?Instructions ?Recorded ?Confirmed diaper,brief,adult,disposable 09/12/21 11/02/23 (Briefs, Adult-Extra Large) acetaminophen 325 mg tablet 650 mg PO Q8H PRN fever/pain 11/03/23 11/03/23 aluminum-mag hydroxide-simethicone 30 ml PO Q4H PRN Constipation 11/03/23 11/03/23 400 mg-400 mg-40 mg/5 mL oral susp (Mylanta Maximum Strength) bisacodyl 10 mg rectal suppository 10 mg MI Q3D PRN Constipation 11/03/23 11/03/23 (Dulcolax (bisacodyl)) diphenhydramine HCl 25 mg capsule 25 mg PO Q6H PRN pruitis 11/03/23 11/03/23 (Benadryl) dulaglutide 0.75 mg/0.5 mL 0.75 mg subcut TH@0900 11/03/23 11/03/23 subcutaneous pen injector (Trulicity) magnesium hydroxide 400 mg/5 mL 30 ml PO DAILY PRN Constipation 11/03/23 11/03/23 oral suspension (Milk of Magnesia) metformin 500 mg tablet 500 mg PO BIDWM 11/03/23 11/03/23 omeprazole 20 mg capsule,delayed 20 mg PO DAILY@0630 11/03/23 11/03/23 release Previous Rx's ?Medication ?Instructions ?Recorded blood-glucose meter #1 ea 08/07/22 blood sugar diagnostic (FreeStyle #100 ea 09/18/22 Lite Strips) lancets #100 ea 09/18/22 finasteride 5 mg tablet 5 mg PO DAILY BPH 90 days #90 tabs 04/24/23 sitagliptin phosphate 100 mg 100 mg PO DAILY #30 tabs 09/02/23 tablet (Januvia) cefuroxime axetil 250 mg tablet 250 mg PO BID #14 tabs 03/13/24 Allergies Allergy/AdvReac Type Severity Reaction Status Date / Time Seasonal Allergies Allergy Intermediate Sneezing, Verified 03/13/24 01:45 watery eyes Penicillins [PCN] Allergy Mild Rash Verified 03/13/24 01:45 Review of Systems 2 Review of Systems: Unable to be obtained due to cognitive impairment PMFSH Past Medical History Attestation statement: The following information was validated with the patient. Source: old records reviewed Medical History Cataract Dementia Diabetes mellitus Diverticulosis Bladder cancer Brain tumor Surgical History History of total right knee replacement Hx of colonoscopy Hx of tonsillectomy History of bladder surgery Family History Family History Other Substance use disorder Social History Social History Household Members Other:: 1 Housing: Apartment Are you a primary medicare sales representative to a significant other at home: No Do you presently have visiting nurse or other home services: No Unable to assess alcohol history related to: Unknown Alcohol intake: never Patient Tobacco Use Status: Never used Tobacco Smoked in Last 30 Days: No e-Cigarette/Vaping Use: Never Used Second Hand Smoke Exposure: No Use of substances other than those prescribed or required for medical reasons: No Substance Use Type: Marijuana Advance Directives: Yes Advance Directives on File: Yes Advance Directives Date on File: 07/28/23 Do you have a plan to hurt others: No Plan service: No Current occupational status: retired Cognitive needs: Yes (cane) Hearing needs: No Vision needs: Yes (glaases) Physical Exam ED Vital Signs: Vital Signs - 24 hr 03/13/24 01:43 03/13/24 01:54 03/13/24 04:00 Temperature 99 F 99.9 F 98.4 F Pulse Rate 82 89 88 Respiratory Rate 18 20 18 Blood Pressure 133/80 133/80 162/99 H Pulse Oximetry 98 94 97 Oxygen Delivery Method Room Air Room Air Room Air 03/13/24 06:14 03/13/24 08:14 03/13/24 10:50 Temperature 97.5 F 98.6 F 98.0 F Pulse Rate 87 52 66 Respiratory Rate 18 14 14 Blood Pressure 134/80 128/53 L 138/66 Pulse Oximetry 96 96 92 Oxygen Delivery Method Room Air Room Air Room Air 03/13/24 12:59 Temperature 98 F Pulse Rate 66 Respiratory Rate 18 Blood Pressure 138/66 Pulse Oximetry 94 Oxygen Delivery Method Room Air BMI result Body Mass Index 33.1 Appearance: Alert.?Oriented to person, disoriented to place time and event. Calm and cooperative.. No acute distress.? Eyes: Pupils equal, round and reactive to light.? ENT: Pharynx normal.?? Neck: Normal inspection.? Neck supple.?? CVS: Heart sounds normal. Normal heart rate and rhythm.? Pulses normal.?? Respiratory: No respiratory distress.? Lung sounds clear to auscultation bilaterally?? Abdomen: Soft and non-tender. Normoactive bowel sounds. ?? Skin: Skin warm and dry.? Normal skin color.? Extremities: No lower extremity edema.?= Neuro: Moves all extremities spontaneously. Sensation intact bilaterally. Medications Administered Discontinued Medications Generic Name Dose Route Start Last Admin Trade Name Freq PRN Reason Stop Dose Admin Sodium Chloride 1,000 mls @ 999 mls/hr 03/13/24 07:00 03/13/24 08:33 Ns IV 03/13/24 08:00 Infused .Q1H1M NEYDA Infusion Ceftriaxone Sodium 1 gm/ 50 mls @ 100 mls/hr 03/13/24 06:47 03/13/24 07:34 Sodium Chloride IV 03/13/24 07:16 Infused ONCE ONE Infusion Ondansetron HCl 4 mg 03/13/24 04:49 03/13/24 05:02 Ondansetron Hcl 4 Mg/2 Ml Vial IVPUSH 03/13/24 04:50 4 mg ONCE ONE Administration Medical Decision Making Medical Decision Making MDM Narrative: Patient is a 73-year-old male with past medical history of [id number]-[id number] diabetes, BPH, dementia, history of bladder cancer, intracranial craniopharyngioma presenting for evaluation of nausea and vomiting over the past 5 days as per HPI with report from staff at facility. Overall he appears well, nontoxic, afebrile. He is without tachycardia tachypnea or hypoxia. No respiratory distress. Neurological exam is nonfocal. Lung sounds are clear bilaterally. Abdomen is soft and nontender with normoactive bowel sounds. No CVA tenderness. CBC revealing a mild leukocytosis of 11.9 with left shift, CMP notable for non-anion gap hyperglycemia, hypercalcemia which is chronic and at baseline. Urinalysis concerning for urinary tract infection, patient received 1 L normal saline IV fluid, in addition to Rocephin 1 g IV for urinary tract infection. Repeat POC glucose 213. He is tolerating oral intake without vomiting. At this time feel that he is stable for discharge back to facility and course of oral antibiotics. I have low suspicion for acute intra-abdominal pathology, no CVA tenderness to suggest pyelonephritis, no FLORA. Differential Diagnosis Differential Diagnoses: The differential diagnosis associated with the presentation includes (See narrative above) Admission/Observation Consideration of admission/observation: Escalation of care including admission/observation considered Lab Data MDM Lab Attestation statement: I reviewed the patient's lab results. (See narrative above) 03/13/24 02:09 03/13/24 02:09 Labs: Lab Results 03/13/24 03/13/24 Range/Units 02:09 08:55 WBC 11.9 H (4.8-10.8) X10*3/uL RBC 4.94 (4.60-5.80) X10*6/uL Hgb 15.5 (14.0-18.0) g/dl Hct 43.8 (42.0-52.0) % MCV 88.7 (80.0-98.0) fL MCH 31.4 (27.0-33.0) pg MCHC 35.4 (31.0-36.0) g/dl RDW 13.2 (11.0-16.0) % Plt Count 291 (160-400) X10*3/uL MPV 9.9 (9.4-12.4) fL Immature Gran % (Auto) 0.6 H (0.0-0.4) % Neut % (Auto) 81.9 H (45-73) % Lymph % (Auto) 11.6 L (20-40) % [place] % (Auto) 4.5 (2-11) % Eos % (Auto) 0.9 (0-4) % Baso % (Auto) 0.5 (0-2) % Lymph # (Auto) 1.4 (1.2-4.9) X10*3/uL [place] # (Auto) 0.5 (0.1-1.2) X10*3/uL Eos # (Auto) 0.1 (0.0-0.4) X10*3/uL Baso # (Auto) 0.1 (0.0-0.2) X10*3/uL Abs Immat Gran (auto) 0.07 H (0.00-0.03) X10*3/uL Absolute Neuts (auto) 9.7 H (2.0-8.3) x10*3/uL Absolute Nucleated RBC 0.000 (0.0-0.012) X10*3/uL Nucleated RBC % (auto) 0.0 (0.0-0.2) /100WBC Sodium 139 (135-145) mmol/L Potassium 3.9 (3.3-5.1) mmol/L Chloride 102 (96-108) mmol/L Carbon Dioxide 24 (22-29) mmol/L Anion Gap 17 (12-20) BUN 19 H (9-16) mg/dL Creatinine 0.99 (0.5-1.4) mg/dL Estim Creat Clear Calc 69.8 Estimated GFR > 60 POC Glucose 213 H (60-115) mg/dL Random Glucose 305 H (60-115) mg/dL Calcium 11.9 H D (8.4-10.2) mg/dL Total Bilirubin 0.5 (0.0-1.0) mg/dL AST 17 (5-37) U/L ALT 16 (0-40) U/L Alkaline Phosphatase 100 (39-117) U/L Total Protein 7.1 (6.5-8.0) g/dL Albumin 3.9 (3.5-5.0) g/dL Lipase 28 (8-78) U/L Urine Color Yellow Urine Appearance Turbid Urine pH 7.5 (5.0-9.0) Ur Specific [place] 1.025 (1.005-1.025) Urine Protein 30 (1+) H (Neg-Trace) mg/dL Urine Glucose (UA) Negative (Negative) mg/dL Urine Ketones Trace (Negative) mg/dL Urine Blood Negative (Negative) Urine Nitrite Negative (Negative) Ur Leukocyte Esterase Large (3+) H (Negative) Urine RBC >20 H (0-2) /HPF Urine WBC >50 H (0-5) /HPF Ur Squamous Epith Cells 0-2 (0-2) /HPF Urine Bacteria 4+ (None Seen) Hyaline Casts 3-5 (0-2) /LPF Independent Historian Clinical information obtained from an independent historian. History obtained from or confirmed by: EMS External Record Review External record reviewed: Outpatient record Prescription Management I considered prescription management with: Antibiotic Discharge Plan Discharge Clinical Impression: Urinary tract infection Patient Disposition: Xfer [facility] Transfer Details: BACK TO [facility] Instructions: Urinary Tract Infection in Men (ED) Prescriptions: New cefuroxime axetil 250 mg tablet 250 mg PO BID Qty: 14 0RF No Action (DME) FreeStyle Lite Strips Strip See Rx Instructions .MEDSUPPLY Qty: 100 1RF Rx Instructions: Once a day (DME) lancets Misc See Rx Instructions .MEDSUPPLY Qty: 100 0RF Rx Instructions: As directed Januvia 100 mg tablet 100 mg PO DAILY Qty: 30 0RF acetaminophen 325 mg Tablet 650 mg PO Q8H PRN (Reason: fever/pain) magnesium hydroxide [Milk of Magnesia] 400 mg/5 mL Suspension 30 ml PO DAILY PRN (Reason: Constipation) bisacodyl [Dulcolax (bisacodyl)] 10 mg Suppository 10 mg MI Q3D PRN (Reason: Constipation) diphenhydramine HCl [Benadryl] 25 mg Capsule 25 mg PO Q6H PRN (Reason: pruitis) omeprazole 20 mg capsule,delayed release(DR/EC) 20 mg PO DAILY@0630 Trulicity 0.75 mg/0.5 mL pen injector 0.75 mg subcut TH@0900 Rx Instructions: given on alum-mag hydroxide-simeth [Mylanta Maximum Strength] 400-400-40 mg/5 mL Suspension 30 ml PO Q4H PRN (Reason: Constipation) metformin 500 mg tablet 500 mg PO BIDWM (DME) Briefs, Adult-Extra Large Misc See Rx Instructions .Route Rx Instructions: As directed (DME) blood-glucose meter Kit See Rx Instructions miscellaneous .MEDSUPPLY Qty: 1 0RF Rx Instructions: As directed finasteride 5 mg tablet 5 mg PO DAILY 90 Days Qty: 90 1RF Rx Instructions: Daily tablet Referrals: Daniel Reyna [Outside] Dean Beard MD [Physician] - Interventions: ED Discharge Assessment Last Done: 03/13/24 12:59 Discharge Date/Time: 03/13/24 13:00 Print Language: Slovak
[2024-03-13 09:00] LABS: Glucose, Whole Blood 213 mg/dL (60-115)
--- NOTE | 2024-03-13 09:43 | PC.NURSE ---
Able to tolerate po food /fluids . Patient without nausea or vomiting
--- NOTE | 2024-03-13 10:54 | PC.NURSE ---
Report given to Talia at [facility], message left for HCP Zuly to let her know her dad will be discharged back to SNF today
== END 2024-03-13 13:00 | disposition skilled nursing facility (03) ==
PROVIDERS: Emergency Provider Emergency Medicine; PCP Family Medicine
DX: N39.0 Urinary tract infection, site not specified (principal); R11.2 Nausea with vomiting, unspecified; E11.9 Type 2 diabetes mellitus without complications
CPT/HCPCS: 36415; 80053; 81001; 82947; 83690; 85025; 87086; 96365; 96375; 99284; 99285; J0696; J2405

== ENCOUNTER 2024-03-14 06:03 | Outpatient (REF) | payer MEDICARE, MEDICAID, SELFPAY ==
[2024-03-14 05:49] LABS: MANUAL DIFF FLAG NO
[2024-03-14 06:47] LABS: Anion Gap 13 (12-20); Blood Urea Nitrogen 18 mg/dL (9-16); Calcium 11.5 mg/dL (8.4-10.2); Carbon Dioxide 22 mmol/L (22-29); Chloride 109 mmol/L (96-108); Estimated Glomerular Filt Rate > 60; Glucose Random 267 mg/dL (60-115); Potassium 3.2 mmol/L (3.3-5.1); Sodium 141 mmol/L (135-145)
[2024-03-14 06:56] LABS: Basophils Absolute Auto 0.1 X10*3/uL (0.0-0.2); Basophils Percent Auto 0.4 % (0-2); Eosinophils Absolute Auto 0.1 X10*3/uL (0.0-0.4); Eosinophils Percent Auto 0.6 % (0-4); Hematocrit 44.7 % (42.0-52.0); Hemoglobin 15.2 g/dl (14.0-18.0); Imm Gran Abs Auto 0.07 X10*3/uL (0.00-0.03); Imm Gran Pct Auto 0.6 % (0.0-0.4); Lymphocytes Absolute Auto 1.5 X10*3/uL (1.2-4.9); Lymphocytes Percent Auto 12.8 % (20-40); Mean Corpuscular Hemoglobin 30.8 pg (27.0-33.0); Mean Corpuscular Volume 90.5 fL (80.0-98.0); Mean Platelet Volume 10.6 fL (9.4-12.4); Monocytes Absolute Auto 0.7 X10*3/uL (0.1-1.2); Monocytes Percent Auto 6.2 % (2-11); Neutrophils Percent Auto 79.4 % (45-73); Platelet Count 324 X10*3/uL (160-400); Red Blood Count 4.94 X10*6/uL (4.60-5.80); Red Cell Distribution Width 13.3 % (11.0-16.0); White Blood Count 11.4 X10*3/uL (4.8-10.8)
== END 2024-03-14 06:04 | disposition home or self-care (01) ==
LOC: HO.MMNH2L 06:03
PROVIDERS: Visit Provider Family Medicine
DX: R27.8 Other lack of coordination (principal)
CPT/HCPCS: 36415; 80048; 85025

== ENCOUNTER 2024-03-21 05:58 | Outpatient (REF) | payer MEDICARE, MEDICAID, SELFPAY ==
[2024-03-21 05:41] LABS: MANUAL DIFF FLAG NO
[2024-03-21 06:03] LABS: Basophils Absolute Auto 0.1 X10*3/uL (0.0-0.2); Basophils Percent Auto 0.9 % (0-2); Eosinophils Absolute Auto 0.4 X10*3/uL (0.0-0.4); Eosinophils Percent Auto 5.5 % (0-4); Hematocrit 39.7 % (42.0-52.0); Hemoglobin 13.6 g/dl (14.0-18.0); Imm Gran Abs Auto 0.05 X10*3/uL (0.00-0.03); Imm Gran Pct Auto 0.7 % (0.0-0.4); Lymphocytes Absolute Auto 2.3 X10*3/uL (1.2-4.9); Lymphocytes Percent Auto 30.2 % (20-40); Mean Corpuscular HGB Conc 34.3 g/dl (31.0-36.0); Mean Corpuscular Hemoglobin 31.1 pg (27.0-33.0); Mean Corpuscular Volume 90.8 fL (80.0-98.0); Mean Platelet Volume 10.2 fL (9.4-12.4); Monocytes Absolute Auto 0.6 X10*3/uL (0.1-1.2); Monocytes Percent Auto 7.6 % (2-11); Neutrophils Absolute Auto 4.2 x10*3/uL (2.0-8.3); Neutrophils Percent Auto 55.1 % (45-73); Platelet Count 286 X10*3/uL (160-400); Red Blood Count 4.37 X10*6/uL (4.60-5.80); Red Cell Distribution Width 13.2 % (11.0-16.0); White Blood Count 7.7 X10*3/uL (4.8-10.8)
[2024-03-21 06:23] LABS: Anion Gap 10 (12-20); Blood Urea Nitrogen 15 mg/dL (9-16); Calcium 11.3 mg/dL (8.4-10.2); Carbon Dioxide 26 mmol/L (22-29); Chloride 107 mmol/L (96-108); Estimated Glomerular Filt Rate > 60; Glucose Random 125 mg/dL (60-115); Potassium 3.6 mmol/L (3.3-5.1); Sodium 139 mmol/L (135-145)
== END 2024-03-21 05:59 | disposition home or self-care (01) ==
LOC: HO.MMNH2L 05:58
PROVIDERS: Visit Provider Hospitalist
DX: R27.8 Other lack of coordination (principal)
CPT/HCPCS: 36415; 80048; 85025

== ENCOUNTER 2024-03-28 06:16 | Outpatient (REF) | payer MEDICARE, MEDICAID, SELFPAY ==
[2024-03-28 05:47] LABS: MANUAL DIFF FLAG NO
[2024-03-28 06:22] LABS: Basophils Absolute Auto 0.1 X10*3/uL (0.0-0.2); Basophils Percent Auto 0.7 % (0-2); Eosinophils Absolute Auto 0.3 X10*3/uL (0.0-0.4); Eosinophils Percent Auto 3.4 % (0-4); Hematocrit 40.8 % (42.0-52.0); Hemoglobin 13.8 g/dl (14.0-18.0); Imm Gran Abs Auto 0.05 X10*3/uL (0.00-0.03); Imm Gran Pct Auto 0.6 % (0.0-0.4); Lymphocytes Absolute Auto 2.3 X10*3/uL (1.2-4.9); Lymphocytes Percent Auto 26.4 % (20-40); Mean Corpuscular HGB Conc 33.8 g/dl (31.0-36.0); Mean Corpuscular Hemoglobin 30.9 pg (27.0-33.0); Mean Corpuscular Volume 91.5 fL (80.0-98.0); Mean Platelet Volume 10.5 fL (9.4-12.4); Monocytes Absolute Auto 0.5 X10*3/uL (0.1-1.2); Monocytes Percent Auto 6.2 % (2-11); Neutrophils Absolute Auto 5.4 x10*3/uL (2.0-8.3); Neutrophils Percent Auto 62.7 % (45-73); Platelet Count 301 X10*3/uL (160-400); Red Blood Count 4.46 X10*6/uL (4.60-5.80); Red Cell Distribution Width 13.2 % (11.0-16.0); White Blood Count 8.6 X10*3/uL (4.8-10.8)
[2024-03-28 06:31] LABS: Anion Gap 12 (12-20); Blood Urea Nitrogen 15 mg/dL (9-16); Calcium 11.3 mg/dL (8.4-10.2); Carbon Dioxide 26 mmol/L (22-29); Chloride 106 mmol/L (96-108); Estimated Glomerular Filt Rate > 60; Glucose Random 134 mg/dL (60-115); Potassium 3.8 mmol/L (3.3-5.1); Sodium 140 mmol/L (135-145)
== END 2024-03-28 06:17 | disposition home or self-care (01) ==
LOC: HO.MMNH2L 06:16
PROVIDERS: Visit Provider Hospitalist
DX: R27.8 Other lack of coordination (principal)
CPT/HCPCS: 36415; 80048; 85025

== ENCOUNTER 2024-04-04 05:49 | Outpatient (REF) | payer MEDICARE, MEDICAID, SELFPAY ==
[2024-04-04 05:33] LABS: MANUAL DIFF FLAG NO
[2024-04-04 05:51] LABS: Basophils Absolute Auto 0.1 X10*3/uL (0.0-0.2); Basophils Percent Auto 0.8 % (0-2); Eosinophils Absolute Auto 0.4 X10*3/uL (0.0-0.4); Eosinophils Percent Auto 4.6 % (0-4); Imm Gran Abs Auto 0.04 X10*3/uL (0.00-0.03); Imm Gran Pct Auto 0.5 % (0.0-0.4); Lymphocytes Absolute Auto 2.5 X10*3/uL (1.2-4.9); Lymphocytes Percent Auto 29.3 % (20-40); Mean Corpuscular HGB Conc 34.1 g/dl (31.0-36.0); Mean Corpuscular Volume 90.9 fL (80.0-98.0); Monocytes Absolute Auto 0.5 X10*3/uL (0.1-1.2); Monocytes Percent Auto 5.6 % (2-11); Neutrophils Absolute Auto 5.1 x10*3/uL (2.0-8.3); Neutrophils Percent Auto 59.2 % (45-73); Platelet Count 315 X10*3/uL (160-400); Red Blood Count 4.51 X10*6/uL (4.60-5.80); White Blood Count 8.7 X10*3/uL (4.8-10.8)
[2024-04-04 06:14] LABS: Anion Gap 18 (12-20); Blood Urea Nitrogen 13 mg/dL (9-16); Calcium 11.5 mg/dL (8.4-10.2); Carbon Dioxide 25 mmol/L (22-29); Chloride 102 mmol/L (96-108); Estimated Glomerular Filt Rate > 60; Glucose Random 159 mg/dL (60-115); Potassium 3.5 mmol/L (3.3-5.1); Sodium 141 mmol/L (135-145)
== END 2024-04-04 05:50 | disposition home or self-care (01) ==
LOC: HO.MMNH2L 05:49
PROVIDERS: Visit Provider Family Medicine
DX: R27.8 Other lack of coordination (principal)
CPT/HCPCS: 36415; 80048; 85025

== ENCOUNTER 2024-04-11 07:05 | Outpatient (REF) | payer MEDICARE, MEDICAID, SELFPAY ==
[2024-04-11 06:16] LABS: MANUAL DIFF FLAG NO
[2024-04-11 07:22] LABS: Basophils Absolute Auto 0.1 X10*3/uL (0.0-0.2); Basophils Percent Auto 0.8 % (0-2); Eosinophils Absolute Auto 0.4 X10*3/uL (0.0-0.4); Eosinophils Percent Auto 5.3 % (0-4); Hematocrit 41.7 % (42.0-52.0); Hemoglobin 13.9 g/dl (14.0-18.0); Imm Gran Abs Auto 0.02 X10*3/uL (0.00-0.03); Imm Gran Pct Auto 0.3 % (0.0-0.4); Lymphocytes Absolute Auto 2.4 X10*3/uL (1.2-4.9); Lymphocytes Percent Auto 31.7 % (20-40); Mean Corpuscular HGB Conc 33.3 g/dl (31.0-36.0); Mean Corpuscular Hemoglobin 30.8 pg (27.0-33.0); Mean Corpuscular Volume 92.3 fL (80.0-98.0); Mean Platelet Volume 10.4 fL (9.4-12.4); Monocytes Absolute Auto 0.5 X10*3/uL (0.1-1.2); Neutrophils Absolute Auto 4.2 x10*3/uL (2.0-8.3); Neutrophils Percent Auto 54.9 % (45-73); Platelet Count 300 X10*3/uL (160-400); Red Blood Count 4.52 X10*6/uL (4.60-5.80); White Blood Count 7.6 X10*3/uL (4.8-10.8)
[2024-04-11 07:34] LABS: Anion Gap 13 (12-20); Blood Urea Nitrogen 15 mg/dL (9-16); Calcium 11.7 mg/dL (8.4-10.2); Carbon Dioxide 24 mmol/L (22-29); Chloride 107 mmol/L (96-108); Estimated Glomerular Filt Rate > 60; Glucose Random 133 mg/dL (60-115); Potassium 3.8 mmol/L (3.3-5.1); Sodium 140 mmol/L (135-145)
== END 2024-04-11 07:06 | disposition home or self-care (01) ==
LOC: HO.MMNH2L 07:05
PROVIDERS: Visit Provider Family Medicine
DX: R27.8 Other lack of coordination (principal)
CPT/HCPCS: 36415; 80048; 85025

== ENCOUNTER 2024-04-18 05:50 | Outpatient (REF) | payer MEDICARE, MEDICAID, SELFPAY ==
[2024-04-18 05:32] LABS: MANUAL DIFF FLAG NO
[2024-04-18 06:03] LABS: Basophils Absolute Auto 0.1 X10*3/uL (0.0-0.2); Basophils Percent Auto 0.7 % (0-2); Eosinophils Absolute Auto 0.4 X10*3/uL (0.0-0.4); Eosinophils Percent Auto 4.6 % (0-4); Hematocrit 41.7 % (42.0-52.0); Imm Gran Abs Auto 0.05 X10*3/uL (0.00-0.03); Imm Gran Pct Auto 0.6 % (0.0-0.4); Lymphocytes Absolute Auto 2.3 X10*3/uL (1.2-4.9); Mean Corpuscular HGB Conc 33.6 g/dl (31.0-36.0); Mean Corpuscular Hemoglobin 30.8 pg (27.0-33.0); Mean Corpuscular Volume 91.6 fL (80.0-98.0); Mean Platelet Volume 10.2 fL (9.4-12.4); Monocytes Absolute Auto 0.5 X10*3/uL (0.1-1.2); Monocytes Percent Auto 6.1 % (2-11); Neutrophils Absolute Auto 4.9 x10*3/uL (2.0-8.3); Platelet Count 300 X10*3/uL (160-400); Red Blood Count 4.55 X10*6/uL (4.60-5.80); Red Cell Distribution Width 12.7 % (11.0-16.0); White Blood Count 8.2 X10*3/uL (4.8-10.8)
[2024-04-18 06:23] LABS: Anion Gap 14 (12-20); Blood Urea Nitrogen 19 mg/dL (9-16); Calcium 11.5 mg/dL (8.4-10.2); Carbon Dioxide 23 mmol/L (22-29); Chloride 105 mmol/L (96-108); Estimated Glomerular Filt Rate > 60; Glucose Random 186 mg/dL (60-115); Potassium 3.7 mmol/L (3.3-5.1); Sodium 138 mmol/L (135-145)
[2024-04-18 07:21] LABS: Estimated Average Glucose 151 mg/dL; Hemoglobin A1c % 6.9 % (<6.0)
== END 2024-04-18 05:51 | disposition home or self-care (01) ==
LOC: HO.MMNH2L 05:50
PROVIDERS: Visit Provider Family Medicine
DX: R27.8 Other lack of coordination (principal)
CPT/HCPCS: 36415; 80048; 83036; 85025

== ENCOUNTER 2024-04-25 05:58 | Outpatient (REF) | payer MEDICARE, MEDICAID, SELFPAY ==
[2024-04-25 05:44] LABS: MANUAL DIFF FLAG NO
[2024-04-25 06:24] LABS: Basophils Absolute Auto 0.1 X10*3/uL (0.0-0.2); Basophils Percent Auto 0.6 % (0-2); Eosinophils Absolute Auto 0.4 X10*3/uL (0.0-0.4); Eosinophils Percent Auto 4.3 % (0-4); Hematocrit 42.2 % (42.0-52.0); Hemoglobin 14.5 g/dl (14.0-18.0); Imm Gran Abs Auto 0.03 X10*3/uL (0.00-0.03); Imm Gran Pct Auto 0.3 % (0.0-0.4); Lymphocytes Absolute Auto 2.7 X10*3/uL (1.2-4.9); Lymphocytes Percent Auto 28.9 % (20-40); Mean Corpuscular HGB Conc 34.4 g/dl (31.0-36.0); Mean Corpuscular Hemoglobin 31.3 pg (27.0-33.0); Mean Corpuscular Volume 91.1 fL (80.0-98.0); Mean Platelet Volume 10.6 fL (9.4-12.4); Monocytes Absolute Auto 0.6 X10*3/uL (0.1-1.2); Neutrophils Absolute Auto 5.7 x10*3/uL (2.0-8.3); Neutrophils Percent Auto 59.9 % (45-73); Platelet Count 317 X10*3/uL (160-400); Red Blood Count 4.63 X10*6/uL (4.60-5.80); Red Cell Distribution Width 12.8 % (11.0-16.0); White Blood Count 9.5 X10*3/uL (4.8-10.8)
[2024-04-25 06:54] LABS: Anion Gap 15 (12-20); Blood Urea Nitrogen 19 mg/dL (9-16); Calcium 11.4 mg/dL (8.4-10.2); Carbon Dioxide 21 mmol/L (22-29); Chloride 108 mmol/L (96-108); Estimated Glomerular Filt Rate > 60; Glucose Random 126 mg/dL (60-115); Potassium 3.7 mmol/L (3.3-5.1); Sodium 140 mmol/L (135-145)
== END 2024-04-25 05:59 | disposition home or self-care (01) ==
LOC: HO.MMNH2L 05:58
PROVIDERS: Visit Provider Family Medicine
DX: R27.8 Other lack of coordination (principal)
CPT/HCPCS: 36415; 80048; 85025

== ENCOUNTER 2024-05-02 06:12 | Outpatient (REF) | payer MEDICARE, MEDICAID, SELFPAY ==
[2024-05-02 06:01] LABS: MANUAL DIFF FLAG NO
[2024-05-02 06:51] LABS: Basophils Absolute Auto 0.1 X10*3/uL (0.0-0.2); Basophils Percent Auto 0.8 % (0-2); Eosinophils Absolute Auto 0.4 X10*3/uL (0.0-0.4); Eosinophils Percent Auto 4.9 % (0-4); Hematocrit 40.2 % (42.0-52.0); Hemoglobin 13.6 g/dl (14.0-18.0); Imm Gran Abs Auto 0.03 X10*3/uL (0.00-0.03); Imm Gran Pct Auto 0.4 % (0.0-0.4); Lymphocytes Percent Auto 27.3 % (20-40); Mean Corpuscular HGB Conc 33.8 g/dl (31.0-36.0); Mean Corpuscular Hemoglobin 31.2 pg (27.0-33.0); Mean Corpuscular Volume 92.2 fL (80.0-98.0); Mean Platelet Volume 10.3 fL (9.4-12.4); Monocytes Absolute Auto 0.5 X10*3/uL (0.1-1.2); Monocytes Percent Auto 6.7 % (2-11); Neutrophils Absolute Auto 4.4 x10*3/uL (2.0-8.3); Neutrophils Percent Auto 59.9 % (45-73); Platelet Count 298 X10*3/uL (160-400); Red Blood Count 4.36 X10*6/uL (4.60-5.80); Red Cell Distribution Width 12.6 % (11.0-16.0); White Blood Count 7.4 X10*3/uL (4.8-10.8)
[2024-05-02 07:08] LABS: Anion Gap 13 (12-20); Blood Urea Nitrogen 17 mg/dL (9-16); Calcium 11.6 mg/dL (8.4-10.2); Carbon Dioxide 26 mmol/L (22-29); Chloride 106 mmol/L (96-108); Estimated Glomerular Filt Rate > 60; Glucose Random 201 mg/dL (60-115); Potassium 3.5 mmol/L (3.3-5.1); Sodium 141 mmol/L (135-145)
[2024-05-02 07:15] LABS: Parathyroid Hormone Intact 138.1 pg/mL (8.7-77.1)
[2024-05-02 07:16] LABS: Estimated Average Glucose 148 mg/dL; Hemoglobin A1c % 6.8 % (<6.0)
[2024-05-02 07:17] LABS: Vitamin D 25-OH Total 31.1 ng/mL (>30)
== END 2024-05-02 06:13 | disposition home or self-care (01) ==
LOC: HO.MMNH2L 06:12
PROVIDERS: Hospitalist; Visit Provider Family Medicine
DX: Z13.1 Encounter for screening for diabetes mellitus (principal); R27.8 Other lack of coordination
CPT/HCPCS: 36415; 80048; 82306; 83036; 83970; 85025

== ENCOUNTER 2024-05-09 06:05 | Outpatient (REF) | payer MEDICARE, MEDICAID, SELFPAY ==
[2024-05-09 05:44] LABS: MANUAL DIFF FLAG NO
[2024-05-09 06:22] LABS: Anion Gap 13 (12-20); Blood Urea Nitrogen 15 mg/dL (9-16); Calcium 11.6 mg/dL (8.4-10.2); Carbon Dioxide 25 mmol/L (22-29); Chloride 107 mmol/L (96-108); Estimated Glomerular Filt Rate > 60; Glucose Random 115 mg/dL (60-115); Potassium 3.7 mmol/L (3.3-5.1); Sodium 141 mmol/L (135-145)
[2024-05-09 07:07] LABS: Basophils Percent Auto 0.5 % (0-2); Eosinophils Absolute Auto 0.4 X10*3/uL (0.0-0.4); Eosinophils Percent Auto 4.7 % (0-4); Hemoglobin 13.4 g/dl (14.0-18.0); Imm Gran Abs Auto 0.04 X10*3/uL (0.00-0.03); Imm Gran Pct Auto 0.5 % (0.0-0.4); Lymphocytes Absolute Auto 2.4 X10*3/uL (1.2-4.9); Lymphocytes Percent Auto 31.5 % (20-40); Mean Corpuscular HGB Conc 33.5 g/dl (31.0-36.0); Mean Corpuscular Hemoglobin 30.7 pg (27.0-33.0); Mean Corpuscular Volume 91.5 fL (80.0-98.0); Mean Platelet Volume 10.2 fL (9.4-12.4); Monocytes Absolute Auto 0.5 X10*3/uL (0.1-1.2); Monocytes Percent Auto 6.4 % (2-11); Neutrophils Absolute Auto 4.3 x10*3/uL (2.0-8.3); Neutrophils Percent Auto 56.4 % (45-73); Platelet Count 302 X10*3/uL (160-400); Red Blood Count 4.37 X10*6/uL (4.60-5.80); Red Cell Distribution Width 12.8 % (11.0-16.0); White Blood Count 7.6 X10*3/uL (4.8-10.8)
== END 2024-05-09 06:06 | disposition home or self-care (01) ==
LOC: HO.MMNH2L 06:05
PROVIDERS: Visit Provider Family Medicine
DX: R27.8 Other lack of coordination (principal)
CPT/HCPCS: 36415; 80048; 85025

== ENCOUNTER 2024-05-23 05:45 | Outpatient (REF) | payer OTHER, MEDICARE, MEDICAID, SELFPAY ==
[2024-05-23 06:41] LABS: Vitamin D 25-OH Total 28.1 ng/mL (>30)
== END 2024-05-23 05:46 | disposition home or self-care (01) ==
LOC: HO.MMNH2L 05:45
PROVIDERS: Visit Provider Family Medicine
DX: E11.9 Type 2 diabetes mellitus without complications (principal)
CPT/HCPCS: 36415; 82306; 83970